=== PATIENT | male | born 1960 | race Caucasian/White ===

== ENCOUNTER 2017-10-21 13:17 | Inpatient (IN) | payer OTHER ==
[2017-10-21 14:09] VITALS: BMI 23.6
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
[2017-10-21] MEDS ORDERED: MAGNESIUM CITRATE 300 ML BOTTLE PO PRN (16:50)
[2017-10-21] MEDS ORDERED: LOPERAMIDE HCL 2 MG CAPSULE PO PRN (16:50)
[2017-10-21] MEDS ORDERED: guaiFENesin/D-METHORPHAN HB 10 ML UNIT-DOSE CUPS PO PRN (16:50)
[2017-10-21] MEDS ORDERED: NICOTINE POLACRILEX 2 MG GUM BC PRN (16:50)
[2017-10-21] MEDS ORDERED: MAGNESIUM HYDROX 2400MG/30ML ORAL SUSPENSION 30 ML CUP PO PRN (16:50)
[2017-10-21] MEDS ORDERED: ACETAMINOPHEN 325 MG TABLET (FP) PO PRN (16:50)
[2017-10-21] MEDS ORDERED: MENTHOL/PHENOL 1 EACH UD MM PRN (16:50)
[2017-10-21] MEDS ORDERED: chlordiazePOXIDE HCL 25 MG CAPSULE PO PRN (16:50)
[2017-10-21] MEDS ORDERED: P-EPHED 60MG/TRIPROLIDI 2.5MG TABLET PO PRN (16:50)
[2017-10-21] MEDS ORDERED: MAG HYDROX/AL HYDROX/SIMETH 30 ML UNIT-DOSE CUP PO PRN (16:50)
[2017-10-21] MEDS ORDERED: chlordiazePOXIDE HCL 25 MG CAPSULE PO ONE (17:30)
[2017-10-21] MEDS ORDERED: METHADONE HCL 10 MG TABLET (FOR DETOX USE ONLY) PO ONE ×2 (17:30→23:00)
[2017-10-21] MEDS: chlordiazePOXIDE HCL 25 MG CAPSULE PO SCH (22:30)
[2017-10-21] MEDS: THIAMINE HCL 100 MG TABLET (FP) PO SCH (22:30)
[2017-10-21] MEDS: MELATONIN 5 MG TABLETS PO PRN (22:31)
[2017-10-22] MEDS: chlordiazePOXIDE HCL 25 MG CAPSULE PO SCH ×4 (06:01→22:22)
[2017-10-22 09:23] LABS: HEMATOCRIT 40.2 % (35.4-49); HEMOGLOBIN 13.5 GM/dL (11.7-16.9); MCH 31.2 pg (25.7-33.7); MCHC 33.7 g/dl (32.0-35.9); MEAN CELL VOLUME 92.7 fl (80-96); PLATELET COUNT 181 K/MM3 (134-434); RBC 4.33 M/mm3 (4.00-5.60); RDW 14.5 % (11.9-15.9)
[2017-10-22] MEDS ORDERED: METHADONE HCL 10 MG TABLET (FOR DETOX USE ONLY) PO SCH (10:00)
--- NOTE | 2017-10-22 10:16 | EKG ---
Test Reason : Blood Pressure : / mmHG Vent. Rate : 073 BPM Atrial Rate : 073 BPM P-R Int : 174 ms QRS Dur : 098 ms QT Int : 388 ms P-R-T Axes : 046 -13 046 degrees QTc Int : 427 ms NORMAL SINUS RHYTHM NORMAL ECG NO PREVIOUS ECGS AVAILABLE Confirmed by JESSE SHI, ROYAL ([id number]) on 10/22/2017 10:16:00 AM Referred By: Confirmed By:ROYAL MOLINA MD
[2017-10-22 10:24] LABS: CHLORIDE 105 mmol/L (98-107); POTASSIUM 4.1 mmol/L (3.5-5.1); SODIUM 142 mmol/L (136-145)
[2017-10-22] MEDS: NICOTINE 21 MG/24 HOURS TOPICAL PATCH TD SCH (10:29)
[2017-10-22] MEDS: PRENATAL VITAMINS W/ FOLIC ACID TABLET (FP) PO SCH (10:29)
[2017-10-22 11:07] LABS: ALBUMIN 3.3 g/dl (3.4-5.0); ALK PHOS 113 U/L (45-117); ANION GAP 7 (8-16); BILIRUBIN,TOTAL 0.2 mg/dL (0.2-1.0); BLOOD UREA NITROGEN 16 mg/dL (7-18); CALCIUM 8.9 mg/dL (8.5-10.1); CO2 30 mmol/L (21-32); CREATININE 0.8 mg/dL (0.7-1.3); GLUCOSE,RANDOM 100 mg/dL (74-106); SGOT/AST 19 U/L (15-37); SGPT/ALT 26 U/L (12-78); TOT PROT 6.6 g/dl (6.4-8.2)
--- NOTE | 2017-10-22 11:47 | PN ---
S CIWA - CIWA Score Nausea/Vomitin-No Nausea/No Vomiting Muscle Tremors: 4-Moderate,w/Arms Extend Anxiety: 2 Agitation: 0-Normal Activity Paroxysmal Sweats: 3 Orientation: 0-Oriented Tacttile Disturbances: 3-Moderate Itch/Numb/Burn Auditory Disturbances: 1-Very Mild Visual Disturbances: 2-Mild Sensitivity Headache: 0-None Present CIWA-Ar Total Score: 15 BHS COWS - Scale Resting Pulse: 0= [place] 80 or Below Sweatin= Chills/Flushing Restless Observation: 0= Sits Still Pupil Size: 0= Normal to Room Light Bone or Joint Aches: 2= Severe Diffuse Aches Runny Nose/ Eye Tearin= Nasal Congestion GI Upset > 30mins: 0= None Tremor Observation of Outstretched Hands: 2= Slight Tremor Visible Yawning Observation: 2= >3x During Session Anxiety or Irritability: 2=Irritable/Anxious Goose Flesh Skin: 0=Smooth Skin COWS Score: 10 BHS Progress Note (SOAP) Subjective: Tremors, Sweating, Body Aches, Fatigue. Objective: PATIENT A & O X 3. NO ACUTE DISTRESS. 10/22/17 11:48 Vital Signs Temperature 96.2 F L 10/22/17 09:11 Pulse Rate 76 10/22/17 09:11 Respiratory Rate 18 10/22/17 09:11 Blood Pressure 108/70 10/22/17 09:11 O2 Sat by Pulse Oximetry (%) Laboratory Tests 10/22/17 10/22/17 07:00 07:00 WBC 5.0 RBC 4.33 Hgb 13.5 Hct 40.2 MCV 92.7 MCH 31.2 MCHC 33.7 RDW 14.5 Plt Count 181 MPV 8.0 D Sodium 142 Potassium 4.1 Chloride 105 Carbon Dioxide 30 Anion Gap 7 L BUN 16 Creatinine 0.8 Creat Clearance w eGFR > 60 Random Glucose 100 Calcium 8.9 Total Bilirubin 0.2 AST 19 D ALT 26 D Alkaline Phosphatase 113 Total Protein 6.6 Albumin 3.3 L LABS NOTED. UA, RPR RESULTS PENDING. 10/22/17 11:49 Assessment: 10/22/17 11:49 WITHDRAWAL SYMPTOMS. Plan: CONTINUE DEOTX. INCREASE DAILY PO FLUID INTAKE.
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
[2017-10-22 18:03] LABS: URINE APPEARANCE TURBID; URINE BILIRUBIN NEGATIVE (<2.0 mg/dL); URINE COLOR YELLOW; URINE GLUCOSE (UA) NEGATIVE (NEGATIVE); URINE KETONE TRACE (NEGATIVE); URINE LEUK ESTERASE NEGATIVE (NEGATIVE); URINE NITRITE NEGATIVE (NEGATIVE); URINE PROTEIN NEGATIVE (NEGATIVE)
[2017-10-22] MEDS: THIAMINE HCL 100 MG TABLET (FP) PO SCH (22:22)
[2017-10-22] MEDS: MELATONIN 5 MG TABLETS PO PRN (22:23)
[2017-10-23] MEDS: IBUPROFEN 400 MG TABLET (FP) PO PRN ×2 (00:48→22:29)
[2017-10-23] MEDS: chlordiazePOXIDE HCL 25 MG CAPSULE PO SCH ×3 (05:55→17:20)
[2017-10-23] MEDS: METHADONE HCL 5 MG TABLET (FOR DETOX USE ONLY) PO SCH (10:57)
[2017-10-23] MEDS: SERTRALINE HCL 25 MG TABLET (FP) PO SCH (10:57)
[2017-10-23] MEDS: NICOTINE 21 MG/24 HOURS TOPICAL PATCH TD SCH (10:57)
[2017-10-23] MEDS: PRENATAL VITAMINS W/ FOLIC ACID TABLET (FP) PO SCH (10:57)
[2017-10-23] MEDS ORDERED: hydrOXYzine PAMOATE 50 MG CAPSULE (FP) PO PRN (14:59)
--- NOTE | 2017-10-23 15:04 | PN ---
S CIWA - CIWA Score Nausea/Vomitin-No Nausea/No Vomiting Muscle Tremors: None Anxiety: 4-Mod. Anxious/Guarded Agitation: 0-Normal Activity Paroxysmal Sweats: No Perspiration Orientation: 2-Disoriented Date<2 days Tacttile Disturbances: 2-Mild Itch/Numbness/Burn Auditory Disturbances: 2-Mild Harshness/Frighten Visual Disturbances: 2-Mild Sensitivity Headache: 0-None Present CIWA-Ar Total Score: 12 S COWS - Scale Resting Pulse: 0= [place] 80 or Below Sweatin= No chills or Flushing Restless Observation: 0= Sits Still Pupil Size: 0= Normal to Room Light Bone or Joint Aches: 2= Severe Diffuse Aches Runny Nose/ Eye Tearin= Nasal Congestion GI Upset > 30mins: 0= None Tremor Observation of Outstretched Hands: 2= Slight Tremor Visible Yawning Observation: 2= >3x During Session Anxiety or Irritability: 2=Irritable/Anxious Goose Flesh Skin: 3=Pil[place] COWS Score: 12 S Progress Note (SOAP) Subjective: Interrupted Sleep, Fatigue, Body Aches, Tremors. Objective: PATIENT A & O X 3, OBSERVED AMBULATING ON UNIT. NO ACUTE DISTRESS. 10/23/17 15:04 Vital Signs Temperature 98.1 F 10/23/17 13:32 Pulse Rate 68 10/23/17 13:32 Respiratory Rate 20 10/23/17 13:32 Blood Pressure 120/78 10/23/17 13:32 O2 Sat by Pulse Oximetry (%) Laboratory Tests 10/21/17 10/22/17 10/22/17 15:00 07:00 07:00 WBC 5.0 RBC 4.33 Hgb 13.5 Hct 40.2 MCV 92.7 MCH 31.2 MCHC 33.7 RDW 14.5 Plt Count 181 MPV 8.0 D Sodium 142 Potassium 4.1 Chloride 105 Carbon Dioxide 30 Anion Gap 7 L BUN 16 Creatinine 0.8 Creat Clearance w eGFR > 60 Random Glucose 100 Calcium 8.9 Total Bilirubin 0.2 AST 19 D ALT 26 D Alkaline Phosphatase 113 Total Protein 6.6 Albumin 3.3 L Urine Color Yellow Urine Appearance Turbid Urine pH 5.0 D Ur Specific [place] 1.029 Urine Protein Negative Urine Glucose (UA) Negative Urine Ketones Trace H Urine Blood Negative Urine Nitrite Negative Urine Bilirubin Negative Urine Urobilinogen 2.0 Ur Leukocyte Esterase Negative RPR Titer 10/22/17 07:00 WBC RBC Hgb Hct MCV MCH MCHC RDW Plt Count MPV Sodium Potassium Chloride Carbon Dioxide Anion Gap BUN Creatinine Creat Clearance w eGFR Random Glucose Calcium Total Bilirubin AST ALT Alkaline Phosphatase Total Protein Albumin Urine Color Urine Appearance Urine pH Ur Specific [place] Urine Protein Urine Glucose (UA) Urine Ketones Urine Blood Urine Nitrite Urine Bilirubin Urine Urobilinogen Ur Leukocyte Esterase RPR Titer Nonreactive LABS NOTED. Assessment: 10/23/17 15:05 WITHDRAWAL SYMPTOMS. Plan: CONTINUE DETOX.
[2017-10-23] MEDS: chlordiazePOXIDE 5 MG CAPSULE PO SCH (22:26)
[2017-10-23] MEDS: MELATONIN 5 MG TABLETS PO PRN (22:26)
[2017-10-23] MEDS: THIAMINE HCL 100 MG TABLET (FP) PO SCH (22:26)
[2017-10-24] MEDS: chlordiazePOXIDE 5 MG CAPSULE PO SCH ×3 (05:38→17:51)
[2017-10-24] MEDS: PRENATAL VITAMINS W/ FOLIC ACID TABLET (FP) PO SCH (10:29)
[2017-10-24] MEDS: METHADONE HCL 5 MG TABLET (FOR DETOX USE ONLY) PO SCH (10:29)
[2017-10-24] MEDS: SERTRALINE HCL 25 MG TABLET (FP) PO SCH (10:29)
[2017-10-24] MEDS: NICOTINE 21 MG/24 HOURS TOPICAL PATCH TD SCH (10:29)
[2017-10-24] MEDS ORDERED: LIDOCAINE 5% TOPICAL PATCH TP SCH (13:00)
[2017-10-24 13:58] VITALS: BP 102/72; PULSE 91; TEMP 98.1
--- NOTE | 2017-10-24 16:10 | PN ---
BHS Progress Note (SOAP) Subjective: Body Aches, Interrupted Sleep, Fatigue. Objective: PATIENT A & O X 2 (UNCERTAIN ABOUT CURRENT DAY / DATE). PATIENT OBSERVED AMBULATING ON UNIT. NO ACUTE DISTRESS. 10/24/17 16:08 Vital Signs Temperature 98.1 F 10/24/17 13:49 Pulse Rate 91 H 10/24/17 13:49 Respiratory Rate 20 10/24/17 13:49 Blood Pressure 102/72 10/24/17 13:49 O2 Sat by Pulse Oximetry (%) Laboratory Tests 10/21/17 10/22/17 10/22/17 15:00 07:00 07:00 WBC 5.0 RBC 4.33 Hgb 13.5 Hct 40.2 MCV 92.7 MCH 31.2 MCHC 33.7 RDW 14.5 Plt Count 181 MPV 8.0 D Sodium 142 Potassium 4.1 Chloride 105 Carbon Dioxide 30 Anion Gap 7 L BUN 16 Creatinine 0.8 Creat Clearance w eGFR > 60 Random Glucose 100 Calcium 8.9 Total Bilirubin 0.2 AST 19 D ALT 26 D Alkaline Phosphatase 113 Total Protein 6.6 Albumin 3.3 L Urine Color Yellow Urine Appearance Turbid Urine pH 5.0 D Ur Specific [place] 1.029 Urine Protein Negative Urine Glucose (UA) Negative Urine Ketones Trace H Urine Blood Negative Urine Nitrite Negative Urine Bilirubin Negative Urine Urobilinogen 2.0 Ur Leukocyte Esterase Negative RPR Titer 10/22/17 07:00 WBC RBC Hgb Hct MCV MCH MCHC RDW Plt Count MPV Sodium Potassium Chloride Carbon Dioxide Anion Gap BUN Creatinine Creat Clearance w eGFR Random Glucose Calcium Total Bilirubin AST ALT Alkaline Phosphatase Total Protein Albumin Urine Color Urine Appearance Urine pH Ur Specific [place] Urine Protein Urine Glucose (UA) Urine Ketones Urine Blood Urine Nitrite Urine Bilirubin Urine Urobilinogen Ur Leukocyte Esterase RPR Titer Nonreactive LABS NOTED. Assessment: 10/24/17 16:09 WITHDRAWAL SYMPTOMS. Plan: CONTINUE DETOX. LIDODERM PATCH FOR LOWER BACK PAIN.
--- NOTE | 2017-10-24 20:22 | PN ---
[facility] Progress Note Note: Patient leaving AMA. Patient is stable. States has family issues and refuses to discuss. The patient was informed informed of over dose and health risks related to potential relapse. Encouraged to f/u with primary care provider seek help or go to ER/call 911 if has problems worsening problems. Patient will continue with home medications.
--- NOTE | 2017-10-24 20:29 | DS ---
[facility] Detox Discharge Summary Admission Date: 10/21/17 Discharge Date: 10/24/17 (AMA) - History Present History: Alcohol Dependence, Cocaine Dependence, Opioid Dependence - Physical Exam Results Vital Signs: Vital Signs Temperature 98.1 F 10/24/17 13:49 Pulse Rate 91 H 10/24/17 13:49 Respiratory Rate 20 10/24/17 13:49 Blood Pressure 102/72 10/24/17 13:49 O2 Sat by Pulse Oximetry (%) - Treatment Hospital Course: Detox Protocol Followed (Did not complete detox. Alert and oriented. Gait steady. Has minor withdrawal symptoms (mild tremor of hands).) - Medication Discharge Medications: Ambulatory Orders Prazosin HCl [Minipress -] 5 mg PO DAILY 10/21/17 Sertraline HCl [Zoloft -] 25 mg PO DAILY 10/21/17 - Diagnosis (1) Alcohol dependence Status: Acute Qualifiers: Substance use status: in withdrawal Complication of substance-induced condition: uncomplicated Qualified Code(s): F10.230 - Alcohol dependence with withdrawal, uncomplicated (2) Cocaine dependence Status: Acute Qualifiers: Substance use status: in withdrawal Qualified Code(s): F14.23 - Cocaine dependence with withdrawal (3) Nicotine dependence Status: Acute Qualifiers: Nicotine product type: cigarettes Substance use status: uncomplicated Qualified Code(s): F17.210 - Nicotine dependence, cigarettes, uncomplicated (4) Opioid dependence Status: Chronic Qualifiers: Substance use status: in withdrawal Qualified Code(s): F11.23 - Opioid dependence with withdrawal - AMA Did Patient Leave Against Medical Advice: Yes
[2017-10-24] MEDS ORDERED: LIDOCAINE PATCH REMOVAL MC SCH (22:00)
[2017-10-24] MEDS ORDERED: chlordiazePOXIDE HCL 10 MG CAPSULE PO SCH (23:00)
[2017-10-25] MEDS ORDERED: METHADONE HCL 10 MG TABLET (FOR DETOX USE ONLY) PO SCH (10:00)
[2017-10-26] MEDS ORDERED: METHADONE HCL 5 MG TABLET (FOR DETOX USE ONLY) PO SCH (06:00)
== END 2017-10-24 07:02 | disposition left against medical advice (07) | DRG 770 ==
LOC: YASAS 13:17 → Y3N 16:58
PROVIDERS: ADMIT Surgery; ATTEND Surgery
PROC: HZ2ZZZZ Detoxification Services for Substance Abuse Treatment (ICD-10-PCS; principal; 2017-10-21)
DX: F11.23 Opioid dependence with withdrawal (principal); F10.230 Alcohol dependence with withdrawal, uncomplicated; F14.23 Cocaine dependence with withdrawal; F17.210 Nicotine dependence, cigarettes, uncomplicated; F43.10 Post-traumatic stress disorder, unspecified; F33.9 Major depressive disorder, recurrent, unspecified; M54.5 Low back pain; M12.50 Traumatic arthropathy, unspecified site; Z87.828 Personal history of other (healed) physical injury and trauma; Z86.19 Personal history of other infectious and parasitic diseases
CPT/HCPCS: 36415; 71046-TC-FY; 80053; 81003; 85027; 86593; 93005; 93010

== ENCOUNTER 2018-01-29 12:09 | Inpatient (IN) | payer OTHER ==
[2018-01-29 15:38] VITALS: BMI 23.4
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
[2018-01-29] MEDS ORDERED: MAGNESIUM CITRATE 300 ML BOTTLE PO PRN (18:57)
[2018-01-29] MEDS ORDERED: IBUPROFEN 400 MG TABLET (FP) PO PRN (18:57)
[2018-01-29] MEDS ORDERED: MAGNESIUM HYDROX 2400MG/30ML ORAL SUSPENSION 30 ML CUP PO PRN (18:57)
[2018-01-29] MEDS ORDERED: P-EPHED 60MG/TRIPROLIDI 2.5MG TABLET PO PRN (18:57)
[2018-01-29] MEDS ORDERED: NICOTINE POLACRILEX 2 MG GUM BUC PRN (18:57)
[2018-01-29] MEDS ORDERED: MENTHOL/PHENOL 1 EACH UD MM PRN (18:57)
[2018-01-29] MEDS ORDERED: ACETAMINOPHEN 325 MG TABLET (FP) PO PRN (18:57)
[2018-01-29] MEDS ORDERED: METHADONE HCL 10 MG TABLET (FOR DETOX USE ONLY) PO ONE ×2 (18:57→23:00)
[2018-01-29] MEDS ORDERED: LOPERAMIDE HCL 2 MG CAPSULE PO PRN (18:57)
[2018-01-29] MEDS ORDERED: MAG HYDROX/AL HYDROX/SIMETH 30 ML UNIT-DOSE CUP PO PRN (18:57)
[2018-01-29] MEDS: chlordiazePOXIDE HCL 25 MG CAPSULE PO PRN (19:43)
[2018-01-29] MEDS: THIAMINE HCL 100 MG TABLET (FP) PO SCH (22:24)
[2018-01-29] MEDS: chlordiazePOXIDE HCL 25 MG CAPSULE PO SCH (22:24)
[2018-01-29] MEDS: guaiFENesin/D-METHORPHAN HB 10 ML UNIT-DOSE CUPS PO PRN (22:24)
[2018-01-29 22:57] LABS: URINE APPEARANCE CLEAR; URINE BILIRUBIN NEGATIVE (<2.0 mg/dL); URINE COLOR YELLOW; URINE GLUCOSE (UA) NEGATIVE (NEGATIVE); URINE KETONE NEGATIVE (NEGATIVE); URINE LEUK ESTERASE NEGATIVE (NEGATIVE); URINE NITRITE NEGATIVE (NEGATIVE); URINE PROTEIN NEGATIVE (NEGATIVE); URINE UROBILINOGEN NEGATIVE mg/dL (0.2-1.0)
[2018-01-29 23:03] LABS: URINE MUCUS FEW
[2018-01-29] MEDS: MELATONIN 5 MG TABLETS PO PRN (23:43)
[2018-01-30] MEDS: chlordiazePOXIDE HCL 25 MG CAPSULE PO SCH ×4 (05:32→22:14)
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
[2018-01-30] MEDS ORDERED: METHADONE HCL 10 MG TABLET (FOR DETOX USE ONLY) PO SCH (10:00)
[2018-01-30 10:15] LABS: HEMATOCRIT 41.2 % (35.4-49); HEMOGLOBIN 13.4 GM/dL (11.7-16.9); MCHC 32.6 g/dl (32.0-35.9); MEAN CELL VOLUME 92.1 fl (80-96); MEAN PLT VOLUME 7.8 fl (7.5-11.1); PLATELET COUNT 256 K/MM3 (134-434); RBC 4.47 M/mm3 (4.00-5.60); RDW 13.5 % (11.9-15.9)
[2018-01-30] MEDS: NICOTINE 14 MG/24 HOURS TOPICAL PATCH TD SCH (10:27)
[2018-01-30] MEDS: PRENATAL VITAMINS W/ FOLIC ACID TABLET (FP) PO SCH (10:27)
[2018-01-30 10:49] LABS: ALBUMIN 3.3 g/dl (3.4-5.0); ALK PHOS 106 U/L (45-117); ANION GAP 9 MMOL/L (8-16); BILIRUBIN,TOTAL 0.4 mg/dL (0.2-1); BLOOD UREA NITROGEN 11 mg/dL (7-18); CALCIUM 9.5 mg/dL (8.5-10.1); CHLORIDE 106 mmol/L (98-107); CO2 26 mmol/L (21-32); CREATININE 0.7 mg/dL (0.55-1.3); GLUCOSE,RANDOM 107 mg/dL (74-106); POTASSIUM 4.4 mmol/L (3.5-5.1); SGOT/AST 25 U/L (15-37); SGPT/ALT 31 U/L (13-61); SODIUM 142 mmol/L (136-145); TOT PROT 7.6 g/dl (6.4-8.2)
--- NOTE | 2018-01-30 10:49 | PN ---
[facility] CIWA - CIWA Score Nausea/Vomitin-No Nausea/No Vomiting Muscle Tremors: 4-Moderate,w/Arms Extend Anxiety: 3 Agitation: 3 Paroxysmal Sweats: 3 Orientation: 0-Oriented Tacttile Disturbances: 0-None Auditory Disturbances: 0-None Visual Disturbances: 0-None Headache: 0-None Present CIWA-Ar Total Score: 13 [facility] COWS - Scale Resting Pulse: 1= [place] 81-100 Sweatin=Flushed/Facial Moisture Restless Observation: 1= Difficult to Sit Still Pupil Size: 0= Normal to Room Light Bone or Joint Aches: 2= Severe Diffuse Aches Runny Nose/ Eye Tearin= Nasal Congestion GI Upset > 30mins: 1= Stomach Cramp Tremor Observation of Outstretched Hands: 2= Slight Tremor Visible Yawning Observation: 2= >3x During Session Anxiety or Irritability: 1=Feels Anxious/Irritable Goose Flesh Skin: 0=Smooth Skin COWS Score: 13 [facility] Progress Note (SOAP) Subjective: agitation anxiety sweats irritable restless Objective: 01/30/18 10:55 Vital Signs Temperature 98.8 F 01/30/18 09:16 Pulse Rate 95 H 01/30/18 09:16 Respiratory Rate 18 01/30/18 09:16 Blood Pressure 107/67 01/30/18 09:16 O2 Sat by Pulse Oximetry (%) Laboratory Tests 01/29/18 01/30/18 01/30/18 Unknown 07:00 07:00 WBC 10.0 RBC 4.47 Hgb 13.4 Hct 41.2 MCV 92.1 MCH 30.0 MCHC 32.6 RDW 13.5 Plt Count 256 D MPV 7.8 D Sodium 142 Potassium 4.4 Chloride 106 Carbon Dioxide 26 Anion Gap 9 BUN 11 Creatinine 0.7 Creat Clearance w eGFR > 60 Random Glucose 107 H Calcium 9.5 Total Bilirubin 0.4 AST 25 ALT 31 Alkaline Phosphatase 106 Total Protein 7.6 Albumin 3.3 L Urine Color Yellow Urine Appearance Clear Urine pH 5.0 Ur Specific [place] 1.024 Urine Protein Negative Urine Glucose (UA) Negative Urine Ketones Negative Urine Blood 1+ H Urine Nitrite Negative Urine Bilirubin Negative Urine Urobilinogen Negative Ur Leukocyte Esterase Negative Urine WBC (Auto) <1 Urine RBC (Auto) 2 Urine Mucus Few aaox3 ambulating no acute distress Assessment: 01/30/18 10:56 withdrawal sx Plan: continue detox increase fluids
[2018-01-30] MEDS: SERTRALINE HCL 25 MG TABLET (FP) PO SCH (10:55)
[2018-01-30] MEDS ORDERED: FLU VACCINE QUAD 60 MCG/0.5 ML (MDV 18-19) IM ONE (12:00)
[2018-01-30] MEDS: guaiFENesin/D-METHORPHAN HB 10 ML UNIT-DOSE CUPS PO PRN (13:51)
--- NOTE | 2018-01-30 20:39 | PN ---
[facility] Progress Note Note: Patient c/o decreased appetite and requesting ensure. BMI reviewed. Will give 120 ml ensure once a day HS.
[2018-01-30] MEDS: THIAMINE HCL 100 MG TABLET (FP) PO SCH (22:13)
[2018-01-30] MEDS: PRAZOSIN HCL 1 MG CAPSULE PO SCH (22:14)
[2018-01-31] MEDS: chlordiazePOXIDE HCL 25 MG CAPSULE PO SCH ×3 (05:45→17:29)
[2018-01-31] MEDS: PRENATAL VITAMINS W/ FOLIC ACID TABLET (FP) PO SCH (10:07)
[2018-01-31] MEDS: SERTRALINE HCL 25 MG TABLET (FP) PO SCH (10:07)
[2018-01-31] MEDS: METHADONE HCL 5 MG TABLET (FOR DETOX USE ONLY) PO SCH (10:07)
[2018-01-31] MEDS: NICOTINE 14 MG/24 HOURS TOPICAL PATCH TD SCH (10:07)
[2018-01-31] MEDS: guaiFENesin/D-METHORPHAN HB 10 ML UNIT-DOSE CUPS PO PRN (13:11)
[2018-01-31] MEDS: chlordiazePOXIDE HCL 25 MG CAPSULE PO PRN (13:13)
--- NOTE | 2018-01-31 18:11 | EKG ---
Test Reason : Blood Pressure : / mmHG Vent. Rate : 079 BPM Atrial Rate : 079 BPM P-R Int : 160 ms QRS Dur : 100 ms QT Int : 364 ms P-R-T Axes : 048 -15 060 degrees QTc Int : 417 ms NORMAL SINUS RHYTHM NORMAL ECG WHEN COMPARED WITH ECG OF 27-NOV-2017 16:43, NO SIGNIFICANT CHANGE WAS FOUND Confirmed by RISA MICHAEL MD ([id number]) on 01/31/2018 6:11:28 PM Referred By: Confirmed By:RISA MICHAEL MD
--- NOTE | 2018-01-31 21:53 | PN ---
[facility] CIWA - CIWA Score Nausea/Vomitin Muscle Tremors: 2 Anxiety: 3 Agitation: 2 Paroxysmal Sweats: 3 Orientation: 0-Oriented Tacttile Disturbances: 0-None Auditory Disturbances: 0-None Visual Disturbances: 0-None Headache: 0-None Present CIWA-Ar Total Score: 12 S COWS - Scale Resting Pulse: 1= [place] 81-100 Sweatin=Flushed/Facial Moisture Restless Observation: 1= Difficult to Sit Still Pupil Size: 0= Normal to Room Light Bone or Joint Aches: 1= Mild Discomfort Runny Nose/ Eye Tearin= Nasal Congestion GI Upset > 30mins: 1= Stomach Cramp Tremor Observation of Outstretched Hands: 2= Slight Tremor Visible Yawning Observation: 0= None Anxiety or Irritability: 1=Feels Anxious/Irritable Goose Flesh Skin: 0=Smooth Skin COWS Score: 10 [facility] Progress Note (SOAP) Subjective: no complaints offered Objective: 01/31/18 21:51 A & Ox 3 Ambulating on unit, hit knee against Vital Signs 01/31/18 01/31/18 14:10 18:27 Temperature 98.4 F 100 F H Pulse Rate 106 H 111 H Respiratory 18 20 Rate Blood Pressure 113/67 119/63 a table while walking No injuries noted, denies pain Ambulates steadily post fall Assessment: 01/31/18 21:52 withdrawal sx Plan: continue detox
[2018-01-31] MEDS: THIAMINE HCL 100 MG TABLET (FP) PO SCH (22:14)
[2018-01-31] MEDS: chlordiazePOXIDE 5 MG CAPSULE PO SCH (22:14)
[2018-01-31] MEDS: PRAZOSIN HCL 1 MG CAPSULE PO SCH (22:15)
[2018-02-01] MEDS: chlordiazePOXIDE HCL 25 MG CAPSULE PO PRN (00:45)
[2018-02-01] MEDS: MELATONIN 5 MG TABLETS PO PRN (00:45)
[2018-02-01] MEDS: guaiFENesin/D-METHORPHAN HB 10 ML UNIT-DOSE CUPS PO PRN ×2 (01:55→11:07)
[2018-02-01] MEDS: chlordiazePOXIDE 5 MG CAPSULE PO SCH ×3 (05:37→17:09)
[2018-02-01] MEDS: PRENATAL VITAMINS W/ FOLIC ACID TABLET (FP) PO SCH (10:06)
[2018-02-01] MEDS: SERTRALINE HCL 25 MG TABLET (FP) PO SCH (10:06)
[2018-02-01] MEDS: METHADONE HCL 5 MG TABLET (FOR DETOX USE ONLY) PO SCH (10:06)
[2018-02-01] MEDS: NICOTINE 14 MG/24 HOURS TOPICAL PATCH TD SCH (10:06)
--- NOTE | 2018-02-01 11:59 | PN ---
[facility] Progress Note (SOAP) Subjective: sweat tremor anxiety restlessness body aches Objective: 02/01/18 11:58 Vital Signs Temperature 98.2 F 02/01/18 09:40 Pulse Rate 94 H 02/01/18 09:40 Respiratory Rate 16 02/01/18 09:40 Blood Pressure 122/66 02/01/18 09:40 O2 Sat by Pulse Oximetry (%) Laboratory Last Values WBC 10.0 K/mm3 (4.0-10.0) 01/30/18 07:00 RBC 4.47 M/mm3 (4.00-5.60) 01/30/18 07:00 Hgb 13.4 GM/dL (11.7-16.9) 01/30/18 07:00 Hct 41.2 % (35.4-49) 01/30/18 07:00 MCV 92.1 fl (80-96) 01/30/18 07:00 MCH 30.0 pg (25.7-33.7) 01/30/18 07:00 MCHC 32.6 g/dl (32.0-35.9) 01/30/18 07:00 RDW 13.5 % (11.9-15.9) 01/30/18 07:00 Plt Count 256 K/MM3 (134-434) D 01/30/18 07:00 MPV 7.8 fl (7.5-11.1) D 01/30/18 07:00 Sodium 142 mmol/L (136-145) 01/30/18 07:00 Potassium 4.4 mmol/L (3.5-5.1) 01/30/18 07:00 Chloride 106 mmol/L (98-107) 01/30/18 07:00 Carbon Dioxide 26 mmol/L (21-32) 01/30/18 07:00 Anion Gap 9 MMOL/L (8-16) 01/30/18 07:00 BUN 11 mg/dL (7-18) 01/30/18 07:00 Creatinine 0.7 mg/dL (0.55-1.3) 01/30/18 07:00 Creat Clearance w eGFR > 60 (>60) 01/30/18 07:00 Random Glucose 107 mg/dL (74-106) H 01/30/18 07:00 Calcium 9.5 mg/dL (8.5-10.1) 01/30/18 07:00 Total Bilirubin 0.4 mg/dL (0.2-1) 01/30/18 07:00 AST 25 U/L (15-37) 01/30/18 07:00 ALT 31 U/L (13-61) 01/30/18 07:00 Alkaline Phosphatase 106 U/L (45-117) 01/30/18 07:00 Total Protein 7.6 g/dl (6.4-8.2) 01/30/18 07:00 Albumin 3.3 g/dl (3.4-5.0) L 01/30/18 07:00 Urine Color Yellow 01/29/18 Unknown Urine Appearance Clear 01/29/18 Unknown Urine pH 5.0 (5.0-8.0) 01/29/18 Unknown Ur Specific [place] 1.024 (1.010-1.035) 01/29/18 Unknown Urine Protein Negative (NEGATIVE) 01/29/18 Unknown Urine Glucose (UA) Negative (NEGATIVE) 01/29/18 Unknown Urine Ketones Negative (NEGATIVE) 01/29/18 Unknown Urine Blood 1+ (NEGATIVE) H 01/29/18 Unknown Urine Nitrite Negative (NEGATIVE) 01/29/18 Unknown Urine Bilirubin Negative (<2.0 mg/dL) 01/29/18 Unknown Urine Urobilinogen Negative mg/dL (0.2-1.0) 01/29/18 Unknown Ur Leukocyte Esterase Negative (NEGATIVE) 01/29/18 Unknown Urine WBC (Auto) <1 /hpf (3-5) 01/29/18 Unknown Urine RBC (Auto) 2 /hpf (0-3) 01/29/18 Unknown Urine Mucus Few 01/29/18 Unknown RPR Titer Nonreactive (NONREACTIVE) 01/30/18 07:00 lab noted Assessment: 02/01/18 11:59 withdrawal sx Plan: continue detox
[2018-02-01] MEDS: chlordiazePOXIDE HCL 10 MG CAPSULE PO SCH (22:39)
[2018-02-01] MEDS: THIAMINE HCL 100 MG TABLET (FP) PO SCH (22:39)
[2018-02-01] MEDS: PRAZOSIN HCL 1 MG CAPSULE PO SCH (22:40)
[2018-02-02] MEDS: chlordiazePOXIDE HCL 10 MG CAPSULE PO SCH ×3 (05:28→17:44)
[2018-02-02] MEDS: guaiFENesin/D-METHORPHAN HB 10 ML UNIT-DOSE CUPS PO PRN ×3 (05:29→18:24)
[2018-02-02] MEDS ORDERED: METHADONE HCL 10 MG TABLET (FOR DETOX USE ONLY) PO SCH (10:00)
--- NOTE | 2018-02-02 10:06 | PN ---
[facility] Progress Note (SOAP) Subjective: sweats interrupted sleep Objective: 02/02/18 10:22 Vital Signs Temperature 98.2 F 02/02/18 09:39 Pulse Rate 96 H 02/02/18 09:39 Respiratory Rate 18 02/02/18 09:39 Blood Pressure 108/54 L 02/02/18 09:39 O2 Sat by Pulse Oximetry (%) aaox3 ambulating no acute distress Assessment: 02/02/18 10:25 withdrawal sx Plan: continue detox increase fluids d/c in am
[2018-02-02] MEDS: PRENATAL VITAMINS W/ FOLIC ACID TABLET (FP) PO SCH (10:25)
[2018-02-02] MEDS: NICOTINE 14 MG/24 HOURS TOPICAL PATCH TD SCH (10:26)
[2018-02-02] MEDS: SERTRALINE HCL 25 MG TABLET (FP) PO SCH (10:26)
[2018-02-02] MEDS: THIAMINE HCL 100 MG TABLET (FP) PO SCH (22:07)
[2018-02-02] MEDS: PRAZOSIN HCL 1 MG CAPSULE PO SCH (22:07)
[2018-02-03] MEDS: guaiFENesin/D-METHORPHAN HB 10 ML UNIT-DOSE CUPS PO PRN (05:51)
[2018-02-03] MEDS ORDERED: METHADONE HCL 5 MG TABLET (FOR DETOX USE ONLY) PO SCH (06:00)
[2018-02-03 09:33] VITALS: BP 114/65; PULSE 98; TEMP 98.2
--- NOTE | 2018-02-03 09:48 | DS ---
[facility] Detox Discharge Summary Admission Date: 01/29/18 Discharge Date: 02/03/18 - History Present History: Alcohol Dependence, Opioid Dependence, MMTP - Physical Exam Results Vital Signs: Vital Signs Temperature 98.2 F 02/03/18 09:32 Pulse Rate 98 H 02/03/18 09:32 Respiratory Rate 18 02/03/18 09:32 Blood Pressure 114/65 02/03/18 09:32 O2 Sat by Pulse Oximetry (%) - Treatment Hospital Course: Detox Protocol Followed, Detoxed Safely, Responded well, Discharged Condition Good, Rehab Referral Accepted - Medication Discharge Medications: Ambulatory Orders Prazosin HCl [Minipress -] 5 mg PO DAILY 10/21/17 Sertraline HCl [Zoloft -] 25 mg PO DAILY #30 tablet 12/02/17 - Diagnosis (1) Alcohol dependence with withdrawal Current Visit: Yes Status: Chronic Qualifiers: Complication of substance-induced condition: uncomplicated Qualified Code(s ): F10.230 - Alcohol dependence with withdrawal, uncomplicated (2) Anxiety Current Visit: Yes Status: Chronic (3) Back pain Current Visit: Yes Status: Chronic Qualifiers: Back pain location: low back pain Chronicity: acute Back pain laterality : bilateral Sciatica presence: without sciatica Qualified Code(s): M54.5 - Low back pain (4) Cocaine dependence Current Visit: Yes Status: Chronic Qualifiers: Substance use status: uncomplicated Qualified Code(s): F14.20 - Cocaine dependence, uncomplicated (5) Depression Current Visit: Yes Status: Chronic Qualifiers: Depression Type: unspecified Qualified Code(s): F32.9 - Major depressive disorder, single episode, unspecified (6) Nicotine dependence Current Visit: Yes Status: Chronic Qualifiers: Nicotine product type: cigarettes Substance use status: uncomplicated Qualified Code(s): F17.210 - Nicotine dependence, cigarettes, uncomplicated (7) Opioid dependence with withdrawal Current Visit: Yes Status: Chronic (8) Alcohol dependence Current Visit: Yes Status: Chronic Qualifiers: Substance use status: in withdrawal Complication of substance-induced condition: uncomplicated Qualified Code(s): F10.230 - Alcohol dependence with withdrawal, uncomplicated (9) Depressed mood Current Visit: No Status: Acute (10) Substance-induced sleep disorder Current Visit: No Status: Acute (11) Hx of chronic arthritis Current Visit: No Status: Chronic (12) PTSD (post-traumatic stress disorder) Current Visit: Yes Status: Chronic (13) Traumatic arthritis Current Visit: No Status: Chronic (14) Hepatitis C Current Visit: Yes Status: Chronic Qualifiers: Viral hepatitis chronicity: chronic Hepatic coma status: without hepatic coma Qualified Code(s): B18.2 - Chronic viral hepatitis C - AMA Did Patient Leave Against Medical Advice: No (ref[facility])
[2018-02-03] MEDS: PRENATAL VITAMINS W/ FOLIC ACID TABLET (FP) PO SCH (10:10)
[2018-02-03] MEDS: NICOTINE 14 MG/24 HOURS TOPICAL PATCH TD SCH (10:10)
[2018-02-03] MEDS: SERTRALINE HCL 25 MG TABLET (FP) PO SCH (10:10)
== END 2018-02-03 12:45 | disposition other institution (70) | DRG 773 ==
LOC: YASAS 12:09 → Y6N 18:47
PROC: HZ2ZZZZ Detoxification Services for Substance Abuse Treatment (ICD-10-PCS; principal; 2018-01-29)
DX: F11.23 Opioid dependence with withdrawal (principal); F10.230 Alcohol dependence with withdrawal, uncomplicated; F14.20 Cocaine dependence, uncomplicated; F17.210 Nicotine dependence, cigarettes, uncomplicated; F32.9 Major depressive disorder, single episode, unspecified; F19.24 Other psychoactive substance dependence with psychoactive substance-induced mood disorder; F19.282 Other psychoactive substance dependence with psychoactive substance-induced sleep disorder; F43.10 Post-traumatic stress disorder, unspecified; F41.9 Anxiety disorder, unspecified; M54.5 Low back pain; B18.2 Chronic viral hepatitis C; M19.90 Unspecified osteoarthritis, unspecified site; Z88.1 Allergy status to other antibiotic agents
CPT/HCPCS: 36415; 80053; 81003; 81015; 85027; 86593; 90688; 93005; 93010; G0008

== ENCOUNTER 2018-02-03 12:54 | Inpatient (IN) | payer OTHER ==
[2018-02-03] MEDS ORDERED: MAGNESIUM HYDROX 2400MG/30ML ORAL SUSPENSION 30 ML CUP PO PRN (15:38)
[2018-02-03] MEDS ORDERED: NICOTINE POLACRILEX 4 MG GUM BUC PRN (15:38)
[2018-02-03] MEDS ORDERED: LOPERAMIDE HCL 2 MG CAPSULE PO PRN (15:38)
[2018-02-03] MEDS ORDERED: guaiFENesin/D-METHORPHAN HB 10 ML UNIT-DOSE CUPS PO PRN (15:38)
[2018-02-03] MEDS ORDERED: MAGNESIUM CITRATE 300 ML BOTTLE PO PRN (15:38)
[2018-02-03] MEDS ORDERED: P-EPHED 60MG/TRIPROLIDI 2.5MG TABLET PO PRN (15:38)
[2018-02-03] MEDS ORDERED: MENTHOL/PHENOL 1 EACH UD MM PRN (15:38)
[2018-02-03] MEDS ORDERED: MAG HYDROX/AL HYDROX/SIMETH 30 ML UNIT-DOSE CUP PO PRN (15:38)
[2018-02-03] MEDS ORDERED: IBUPROFEN 400 MG TABLET (FP) PO PRN (15:38)
--- NOTE | 2018-02-03 15:38 | HP ---
[facility] Rehab Assess/Revision - Admission History Admitted to Rehab from: [facility] [place] - Vital signs Vital Signs: Vital Signs Period Temp Pulse Resp BP Sys/Andrade Pulse Ox Last 24 Hr 99 F 96 18 106/69 - Findings Detox History & Physical reviewed: Yes Concur with findings: Yes
[2018-02-03] MEDS: THIAMINE HCL 100 MG TABLET (FP) PO SCH (21:16)
[2018-02-03] MEDS ORDERED: MELATONIN 5 MG TABLETS PO PRN (22:00)
[2018-02-03] MEDS ORDERED: PRAZOSIN HCL 5 MG CAPSULE PO SCH (22:00)
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
[2018-02-04] MEDS: NICOTINE 21 MG/24 HOURS TOPICAL PATCH TD SCH (10:08)
[2018-02-04] MEDS: SERTRALINE HCL 50 MG TABLET (FP) PO SCH (10:09)
[2018-02-04] MEDS: PRENATAL VITAMINS W/ FOLIC ACID TABLET (FP) PO SCH (10:09)
[2018-02-04] MEDS: THIAMINE HCL 100 MG TABLET (FP) PO SCH (21:21)
[2018-02-04] MEDS: PRAZOSIN HCL 1 MG CAPSULE PO SCH (21:23)
[2018-02-04] MEDS: SUVOREXANT 10 MG TABLET PO PRN (23:08)
[2018-02-05] MEDS: NICOTINE 21 MG/24 HOURS TOPICAL PATCH TD SCH (10:02)
[2018-02-05] MEDS: SERTRALINE HCL 50 MG TABLET (FP) PO SCH (10:02)
[2018-02-05] MEDS: PRENATAL VITAMINS W/ FOLIC ACID TABLET (FP) PO SCH (10:02)
[2018-02-05] MEDS: PRAZOSIN HCL 1 MG CAPSULE PO SCH (21:23)
[2018-02-05] MEDS: THIAMINE HCL 100 MG TABLET (FP) PO SCH (21:23)
[2018-02-05] MEDS: SUVOREXANT 10 MG TABLET PO PRN (21:24)
[2018-02-06] MEDS: ACETAMINOPHEN 325 MG TABLET (FP) PO PRN (04:09)
[2018-02-06] MEDS: PRENATAL VITAMINS W/ FOLIC ACID TABLET (FP) PO SCH (09:59)
[2018-02-06] MEDS: NICOTINE 21 MG/24 HOURS TOPICAL PATCH TD SCH (09:59)
[2018-02-06] MEDS: SERTRALINE HCL 50 MG TABLET (FP) PO SCH (09:59)
[2018-02-06] MEDS: PRAZOSIN HCL 1 MG CAPSULE PO SCH (21:19)
[2018-02-06] MEDS: THIAMINE HCL 100 MG TABLET (FP) PO SCH (21:19)
[2018-02-06] MEDS: SUVOREXANT 10 MG TABLET PO PRN (21:21)
[2018-02-07] MEDS: ACETAMINOPHEN 325 MG TABLET (FP) PO PRN (00:19)
[2018-02-07] MEDS: PRENATAL VITAMINS W/ FOLIC ACID TABLET (FP) PO SCH (09:58)
[2018-02-07] MEDS: SERTRALINE HCL 50 MG TABLET (FP) PO SCH (09:58)
[2018-02-07] MEDS: NICOTINE 21 MG/24 HOURS TOPICAL PATCH TD SCH (09:58)
--- NOTE | 2018-02-07 13:42 | PN ---
ANN Progress Note Note: Psychiatric nurse practitioner foundation relations manager note: Cassandra 10mg renewed.
[2018-02-07] MEDS: hydrOXYzine PAMOATE 50 MG CAPSULE (FP) PO PRN (20:31)
[2018-02-07] MEDS: THIAMINE HCL 100 MG TABLET (FP) PO SCH (21:16)
[2018-02-07] MEDS: PRAZOSIN HCL 1 MG CAPSULE PO SCH (21:16)
[2018-02-07] MEDS: SUVOREXANT 10 MG TABLET PO PRN (21:17)
[2018-02-08] MEDS: PRENATAL VITAMINS W/ FOLIC ACID TABLET (FP) PO SCH (09:37)
[2018-02-08] MEDS: NICOTINE 21 MG/24 HOURS TOPICAL PATCH TD SCH (09:37)
[2018-02-08] MEDS: SERTRALINE HCL 50 MG TABLET (FP) PO SCH (09:37)
[2018-02-08] MEDS: THIAMINE HCL 100 MG TABLET (FP) PO SCH (21:29)
[2018-02-08] MEDS: PRAZOSIN HCL 1 MG CAPSULE PO SCH (21:29)
[2018-02-08] MEDS: SUVOREXANT 10 MG TABLET PO PRN (21:33)
[2018-02-09] MEDS: PRENATAL VITAMINS W/ FOLIC ACID TABLET (FP) PO SCH (10:18)
[2018-02-09] MEDS: NICOTINE 21 MG/24 HOURS TOPICAL PATCH TD SCH (10:19)
[2018-02-09] MEDS: SERTRALINE HCL 50 MG TABLET (FP) PO SCH (10:19)
[2018-02-09] MEDS: hydrOXYzine PAMOATE 50 MG CAPSULE (FP) PO PRN (13:00)
[2018-02-09] MEDS: SUVOREXANT 10 MG TABLET PO PRN (21:25)
[2018-02-09] MEDS: PRAZOSIN HCL 1 MG CAPSULE PO SCH (21:26)
[2018-02-09] MEDS: THIAMINE HCL 100 MG TABLET (FP) PO SCH (21:26)
[2018-02-10] MEDS: PRENATAL VITAMINS W/ FOLIC ACID TABLET (FP) PO SCH (10:15)
[2018-02-10] MEDS: SERTRALINE HCL 50 MG TABLET (FP) PO SCH (10:15)
[2018-02-10] MEDS: NICOTINE 21 MG/24 HOURS TOPICAL PATCH TD SCH (10:16)
[2018-02-10] MEDS: hydrOXYzine PAMOATE 50 MG CAPSULE (FP) PO PRN ×2 (10:16→21:24)
[2018-02-10] MEDS: THIAMINE HCL 100 MG TABLET (FP) PO SCH (21:24)
[2018-02-10] MEDS: SUVOREXANT 10 MG TABLET PO PRN (21:24)
[2018-02-10] MEDS: PRAZOSIN HCL 1 MG CAPSULE PO SCH (21:24)
[2018-02-11] MEDS: SERTRALINE HCL 50 MG TABLET (FP) PO SCH (09:56)
[2018-02-11] MEDS: NICOTINE 21 MG/24 HOURS TOPICAL PATCH TD SCH (09:56)
[2018-02-11] MEDS: PRENATAL VITAMINS W/ FOLIC ACID TABLET (FP) PO SCH (09:57)
[2018-02-11] MEDS: THIAMINE HCL 100 MG TABLET (FP) PO SCH (21:22)
[2018-02-11] MEDS: PRAZOSIN HCL 1 MG CAPSULE PO SCH (21:23)
[2018-02-11] MEDS: hydrOXYzine PAMOATE 50 MG CAPSULE (FP) PO PRN (21:23)
[2018-02-11] MEDS ORDERED: SUVOREXANT 10 MG TABLET PO PRN (22:21)
--- NOTE | 2018-02-11 23:13 | PN ---
[facility] Progress Note Note: Psychiatry Attending's on-call note : Complaint of insomnia presented, over telephone, by the patient. Mr Lyle, previously known to this leader writer, is requesting suvorexant. Maintains that melatonin is " worthless " and belsomra efficacious + helpful. Insists on its inclusion in the medication regimen until completion of rehabilitation. Repair Order Clerk reminded the patient of the benefits of good sleep hygiene and sobriety. Revisited side effects/benefits of belsomra with the patient. Chart was reviewed. Vitals checked. Medications scrutinized. Case discussed with RN on duty, Ms Araiza. Progress notes from psychiatrist, Dr Beach + DIANA Sharma : read. Dose of belsomra : verified. Intervention : belsomra 10 mg po hs prn. Renewed at patient's request. Consent ( verbal) given to leader writer.
[2018-02-12 06:44] VITALS: BP 114/75; PULSE 93; TEMP 98
[2018-02-12] MEDS: SERTRALINE HCL 50 MG TABLET (FP) PO SCH (09:13)
[2018-02-12] MEDS: PRENATAL VITAMINS W/ FOLIC ACID TABLET (FP) PO SCH (09:13)
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
== END 2018-02-12 10:05 | disposition home or self-care (01) | DRG 772 ==
LOC: YASAS 12:54 → Y5N 12:55
PROVIDERS: ADMIT Psychiatry & Neurology Psychiatry; ATTEND Psychiatry & Neurology Psychiatry
PROC: HZ42ZZZ Group Counseling for Substance Abuse Treatment, Cognitive-Behavioral (ICD-10-PCS; principal; 2018-02-03)
DX: F11.20 Opioid dependence, uncomplicated (principal); F10.20 Alcohol dependence, uncomplicated; F14.20 Cocaine dependence, uncomplicated; F17.210 Nicotine dependence, cigarettes, uncomplicated; F43.10 Post-traumatic stress disorder, unspecified; F33.9 Major depressive disorder, recurrent, unspecified; B18.2 Chronic viral hepatitis C; R76.11 Nonspecific reaction to tuberculin skin test without active tuberculosis; M19.90 Unspecified osteoarthritis, unspecified site

== ENCOUNTER 2018-06-23 10:47 | Inpatient (IN) | payer OTHER ==
[2018-06-23 11:34] VITALS: BMI 24.6
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
[2018-06-23] MEDS ORDERED: MELATONIN 5 MG TABLETS PO PRN (12:51)
[2018-06-23] MEDS ORDERED: BISMUTH SUBSALICYLATE 524 MG/30 ML UD PO PRN (12:51)
[2018-06-23] MEDS ORDERED: MAGNESIUM HYDROX 2400MG/30ML ORAL SUSPENSION 30 ML CUP PO PRN (12:51)
[2018-06-23] MEDS ORDERED: IBUPROFEN 400 MG TABLET (FP) PO PRN (12:51)
[2018-06-23] MEDS ORDERED: ACETAMINOPHEN 325 MG TABLET (FP) PO PRN ×2 (12:51)
[2018-06-23] MEDS ORDERED: METHOCARBAMOL 500 MG TABLET PO PRN (12:51)
[2018-06-23] MEDS ORDERED: MENTHOL/PHENOL 1 EACH UD MM PRN (12:51)
[2018-06-23] MEDS ORDERED: MAG HYDROX/AL HYDROX/SIMETH 30 ML UNIT-DOSE CUP PO PRN (12:51)
[2018-06-23] MEDS ORDERED: MAGNESIUM CITRATE 300 ML BOTTLE PO PRN (12:51)
[2018-06-23] MEDS ORDERED: METHADONE HCL 10 MG TABLET PO ONE (12:56)
[2018-06-23] MEDS: chlordiazePOXIDE HCL 25 MG CAPSULE PO PRN (14:54)
[2018-06-23] MEDS: NICOTINE 21 MG/24 HOURS TOPICAL PATCH TD SCH (14:55)
[2018-06-23] MEDS: chlordiazePOXIDE HCL 25 MG CAPSULE PO SCH ×2 (17:58→22:04)
[2018-06-23 17:59] LABS: URINE APPEARANCE TURBID; URINE BILIRUBIN NEGATIVE (<2.0 mg/dL); URINE COLOR YELLOW; URINE GLUCOSE (UA) NEGATIVE (NEGATIVE); URINE KETONE NEGATIVE (NEGATIVE); URINE LEUK ESTERASE NEGATIVE (NEGATIVE); URINE NITRITE NEGATIVE (NEGATIVE); URINE PROTEIN NEGATIVE (NEGATIVE); URINE UROBILINOGEN NEGATIVE mg/dL (0.2-1.0)
[2018-06-23 18:09] LABS: URINE BACTERIA RARE /hpf (NONE SEEN); URINE MUCUS RARE
[2018-06-23] MEDS: THIAMINE HCL 100 MG TABLET (FP) PO SCH (22:04)
[2018-06-24] MEDS: chlordiazePOXIDE HCL 25 MG CAPSULE PO PRN (02:11)
[2018-06-24] MEDS ORDERED: METHADONE HCL 5 MG TABLET (FOR DETOX USE ONLY) ONE (05:51)
[2018-06-24] MEDS: chlordiazePOXIDE HCL 25 MG CAPSULE PO SCH ×4 (05:52→22:02)
[2018-06-24] MEDS ORDERED: METHADONE HCL 10 MG TABLET (FOR DETOX USE ONLY) ONE (05:52)
[2018-06-24] MEDS ORDERED: METHADONE HCL 5 MG TABLET PO ONE (06:00)
[2018-06-24] MEDS ORDERED: METHADONE (DETOX) 20 MG, METHADONE (DETOX) 5 MG PO ONE (06:00)
[2018-06-24] MEDS: PRENATAL VITAMINS W/ FOLIC ACID TABLET (FP) PO SCH (10:19)
[2018-06-24] MEDS: NICOTINE 21 MG/24 HOURS TOPICAL PATCH TD SCH (10:20)
[2018-06-24] MEDS: hydrOXYzine PAMOATE 25 MG CAPSULE (FP) PO PRN (10:21)
[2018-06-24 10:51] LABS: HEMOGLOBIN 13.1 GM/dL (11.7-16.9); MCH 31.6 pg (25.7-33.7); MCHC 34.5 g/dl (32.0-35.9); MEAN CELL VOLUME 91.6 fl (80-96); MEAN PLT VOLUME 8.5 fl (7.5-11.1); PLATELET COUNT 233 K/MM3 (134-434); RBC 4.15 M/mm3 (4.00-5.60); RDW 13.7 % (11.9-15.9)
[2018-06-24 11:16] LABS: BLOOD UREA NITROGEN 15 mg/dL (7-18); GLUCOSE,RANDOM 90 mg/dL (74-106)
[2018-06-24 11:17] LABS: CREATININE 0.9 mg/dL (0.55-1.3)
[2018-06-24 11:18] LABS: ALBUMIN 3.7 g/dl (3.4-5.0); ALK PHOS 97 U/L (45-117); ANION GAP 5 MMOL/L (8-16); BILIRUBIN,TOTAL 0.3 mg/dL (0.2-1); CALCIUM 8.8 mg/dL (8.5-10.1); CHLORIDE 106 mmol/L (98-107); CO2 26 mmol/L (21-32); POTASSIUM 4.2 mmol/L (3.5-5.1); SGOT/AST 11 U/L (15-37); SGPT/ALT 18 U/L (13-61); SODIUM 137 mmol/L (136-145); TOT PROT 7.3 g/dl (6.4-8.2)
--- NOTE | 2018-06-24 14:49 | PN ---
[facility] CIWA - CIWA Score Nausea/Vomitin-No Nausea/No Vomiting Muscle Tremors: 3 Anxiety: 0-No Anxiety, at Ease Agitation: 0-Normal Activity Paroxysmal Sweats: No Perspiration Orientation: 0-Oriented Tacttile Disturbances: 2-Mild Itch/Numbness/Burn Auditory Disturbances: 2-Mild Harshness/Frighten Visual Disturbances: 3-Moderate Sensitivity Headache: 0-None Present CIWA-Ar Total Score: 10 S Progress Note (SOAP) Subjective: Fatigue, Interrupted Sleep, Tremors. Objective: PATIENT A & O X 3 IN NO ACUTE DISTRESS. 06/24/18 14:44 Vital Signs Temperature 98.2 F 06/24/18 13:30 Pulse Rate 82 06/24/18 13:30 Respiratory Rate 18 06/24/18 13:30 Blood Pressure 102/73 06/24/18 13:30 O2 Sat by Pulse Oximetry (%) Laboratory Tests 06/23/18 06/24/18 06/24/18 15:00 06:00 06:00 WBC 5.0 RBC 4.15 Hgb 13.1 Hct 38.0 MCV 91.6 MCH 31.6 MCHC 34.5 RDW 13.7 Plt Count 233 MPV 8.5 Sodium 137 Potassium 4.2 Chloride 106 Carbon Dioxide 26 Anion Gap 5 L BUN 15 Creatinine 0.9 Creat Clearance w eGFR > 60 Random Glucose 90 Calcium 8.8 Total Bilirubin 0.3 AST 11 L ALT 18 Alkaline Phosphatase 97 Total Protein 7.3 Albumin 3.7 Urine Color Yellow Urine Appearance Turbid Urine pH 5.0 Ur Specific [place] 1.028 Urine Protein Negative Urine Glucose (UA) Negative Urine Ketones Negative Urine Blood 1+ H Urine Nitrite Negative Urine Bilirubin Negative Urine Urobilinogen Negative Ur Leukocyte Esterase Negative Urine WBC (Auto) None Urine RBC (Auto) 1 Urine Bacteria Rare Urine Mucus Rare RPR Titer 06/24/18 06:00 WBC RBC Hgb Hct MCV MCH MCHC RDW Plt Count MPV Sodium Potassium Chloride Carbon Dioxide Anion Gap BUN Creatinine Creat Clearance w eGFR Random Glucose Calcium Total Bilirubin AST ALT Alkaline Phosphatase Total Protein Albumin Urine Color Urine Appearance Urine pH Ur Specific [place] Urine Protein Urine Glucose (UA) Urine Ketones Urine Blood Urine Nitrite Urine Bilirubin Urine Urobilinogen Ur Leukocyte Esterase Urine WBC (Auto) Urine RBC (Auto) Urine Bacteria Urine Mucus RPR Titer Nonreactive LABS NOTED. 06/24/18 14:49 Assessment: 03/13/19 14:46 Vital Signs Temperature 98.2 F 06/24/18 13:30 Pulse Rate 82 06/24/18 13:30 Respiratory Rate 18 06/24/18 13:30 Blood Pressure 102/73 06/24/18 13:30 O2 Sat by Pulse Oximetry (%) Laboratory Tests 06/23/18 06/24/18 06/24/18 15:00 06:00 06:00 WBC 5.0 RBC 4.15 Hgb 13.1 Hct 38.0 MCV 91.6 MCH 31.6 MCHC 34.5 RDW 13.7 Plt Count 233 MPV 8.5 Sodium 137 Potassium 4.2 Chloride 106 Carbon Dioxide 26 Anion Gap 5 L BUN 15 Creatinine 0.9 Creat Clearance w eGFR > 60 Random Glucose 90 Calcium 8.8 Total Bilirubin 0.3 AST 11 L ALT 18 Alkaline Phosphatase 97 Total Protein 7.3 Albumin 3.7 Urine Color Yellow Urine Appearance Turbid Urine pH 5.0 Ur Specific [place] 1.028 Urine Protein Negative Urine Glucose (UA) Negative Urine Ketones Negative Urine Blood 1+ H Urine Nitrite Negative Urine Bilirubin Negative Urine Urobilinogen Negative Ur Leukocyte Esterase Negative Urine WBC (Auto) None Urine RBC (Auto) 1 Urine Bacteria Rare Urine Mucus Rare RPR Titer 06/24/18 06:00 WBC RBC Hgb Hct MCV MCH MCHC RDW Plt Count MPV Sodium Potassium Chloride Carbon Dioxide Anion Gap BUN Creatinine Creat Clearance w eGFR Random Glucose Calcium Total Bilirubin AST ALT Alkaline Phosphatase Total Protein Albumin Urine Color Urine Appearance Urine pH Ur Specific [place] Urine Protein Urine Glucose (UA) Urine Ketones Urine Blood Urine Nitrite Urine Bilirubin Urine Urobilinogen Ur Leukocyte Esterase Urine WBC (Auto) Urine RBC (Auto) Urine Bacteria Urine Mucus RPR Titer Nonreactive LABS NOTED. Plan: CONTINUE DETOX.
[2018-06-24] MEDS: THIAMINE HCL 100 MG TABLET (FP) PO SCH (21:52)
[2018-06-25] MEDS: chlordiazePOXIDE HCL 25 MG CAPSULE PO PRN ×2 (00:39→14:17)
[2018-06-25] MEDS: chlordiazePOXIDE HCL 25 MG CAPSULE PO SCH ×2 (05:44→10:03)
[2018-06-25] MEDS: METHADONE HCL 10 MG TABLET PO SCH (05:44)
--- NOTE | 2018-06-25 08:48 | PN ---
S CIWA - CIWA Score Nausea/Vomitin Muscle Tremors: 2 Anxiety: 2 Agitation: 2 Paroxysmal Sweats: 1-Minimal Palms Moist Orientation: 0-Oriented Tacttile Disturbances: 1-Very Mild Itch/Numbness Auditory Disturbances: 1-Very Mild Visual Disturbances: 0-None Headache: 1-Very Mild CIWA-Ar Total Score: 12 BHS Progress Note (SOAP) Subjective: alert,irritable,anxious,interrupted sleep,tremor Objective: 06/25/18 08:53 Vital Signs Temperature 97.9 F 06/25/18 07:47 Pulse Rate 88 06/25/18 07:47 Respiratory Rate 18 06/25/18 07:47 Blood Pressure 147/73 06/25/18 07:47 O2 Sat by Pulse Oximetry (%) Laboratory Last Values WBC 5.0 K/mm3 (4.0-10.0) 06/24/18 06:00 RBC 4.15 M/mm3 (4.00-5.60) 06/24/18 06:00 Hgb 13.1 GM/dL (11.7-16.9) 06/24/18 06:00 Hct 38.0 % (35.4-49) 06/24/18 06:00 MCV 91.6 fl (80-96) 06/24/18 06:00 MCH 31.6 pg (25.7-33.7) 06/24/18 06:00 MCHC 34.5 g/dl (32.0-35.9) 06/24/18 06:00 RDW 13.7 % (11.9-15.9) 06/24/18 06:00 Plt Count 233 K/MM3 (134-434) 06/24/18 06:00 MPV 8.5 fl (7.5-11.1) 06/24/18 06:00 Sodium 137 mmol/L (136-145) 06/24/18 06:00 Potassium 4.2 mmol/L (3.5-5.1) 06/24/18 06:00 Chloride 106 mmol/L (98-107) 06/24/18 06:00 Carbon Dioxide 26 mmol/L (21-32) 06/24/18 06:00 Anion Gap 5 MMOL/L (8-16) L 06/24/18 06:00 BUN 15 mg/dL (7-18) 06/24/18 06:00 Creatinine 0.9 mg/dL (0.55-1.3) 06/24/18 06:00 Creat Clearance w eGFR > 60 (>60) 06/24/18 06:00 Random Glucose 90 mg/dL (74-106) 06/24/18 06:00 Calcium 8.8 mg/dL (8.5-10.1) 06/24/18 06:00 Total Bilirubin 0.3 mg/dL (0.2-1) 06/24/18 06:00 AST 11 U/L (15-37) L 06/24/18 06:00 ALT 18 U/L (13-61) 06/24/18 06:00 Alkaline Phosphatase 97 U/L (45-117) 06/24/18 06:00 Total Protein 7.3 g/dl (6.4-8.2) 06/24/18 06:00 Albumin 3.7 g/dl (3.4-5.0) 06/24/18 06:00 Urine Color Yellow 06/23/18 15:00 Urine Appearance Turbid 06/23/18 15:00 Urine pH 5.0 (5.0-8.0) 06/23/18 15:00 Ur Specific [place] 1.028 (1.010-1.035) 06/23/18 15:00 Urine Protein Negative (NEGATIVE) 06/23/18 15:00 Urine Glucose (UA) Negative (NEGATIVE) 06/23/18 15:00 Urine Ketones Negative (NEGATIVE) 06/23/18 15:00 Urine Blood 1+ (NEGATIVE) H 06/23/18 15:00 Urine Nitrite Negative (NEGATIVE) 06/23/18 15:00 Urine Bilirubin Negative (<2.0 mg/dL) 06/23/18 15:00 Urine Urobilinogen Negative mg/dL (0.2-1.0) 06/23/18 15:00 Ur Leukocyte Esterase Negative (NEGATIVE) 06/23/18 15:00 Urine WBC (Auto) None /hpf (3-5) 06/23/18 15:00 Urine RBC (Auto) 1 /hpf (0-3) 06/23/18 15:00 Urine Bacteria Rare /hpf (NONE SEEN) 06/23/18 15:00 Urine Mucus Rare 06/23/18 15:00 RPR Titer Nonreactive (NONREACTIVE) 06/24/18 06:00 Assessment: 06/25/18 08:54 withdrawal symptom Plan: continue detox
[2018-06-25] MEDS: PRENATAL VITAMINS W/ FOLIC ACID TABLET (FP) PO SCH (10:02)
[2018-06-25] MEDS: NICOTINE 21 MG/24 HOURS TOPICAL PATCH TD SCH (10:03)
[2018-06-25] MEDS: hydrOXYzine PAMOATE 25 MG CAPSULE (FP) PO PRN (14:18)
[2018-06-25] MEDS ORDERED: chlordiazePOXIDE HCL 10 MG CAPSULE PO PRN (17:00)
[2018-06-25] MEDS: chlordiazePOXIDE HCL 10 MG CAPSULE PO SCH ×2 (17:57→22:00)
[2018-06-25] MEDS: THIAMINE HCL 100 MG TABLET (FP) PO SCH (22:00)
[2018-06-26] MEDS: hydrOXYzine PAMOATE 25 MG CAPSULE (FP) PO PRN (02:22)
[2018-06-26] MEDS: chlordiazePOXIDE HCL 10 MG CAPSULE PO SCH ×2 (05:18→10:30)
[2018-06-26] MEDS: METHADONE HCL 10 MG TABLET PO SCH (05:18)
[2018-06-26] MEDS: NICOTINE 21 MG/24 HOURS TOPICAL PATCH TD SCH (10:30)
[2018-06-26] MEDS: PRENATAL VITAMINS W/ FOLIC ACID TABLET (FP) PO SCH (10:30)
--- NOTE | 2018-06-26 11:38 | PN ---
B[facility] Progress Note (SOAP) Subjective: tired Objective: 06/26/18 11:31 Vital Signs Temperature 100.4 F H 06/26/18 09:35 Pulse Rate 103 H 06/26/18 09:35 Respiratory Rate 18 06/26/18 09:35 Blood Pressure 108/76 06/26/18 09:35 O2 Sat by Pulse Oximetry (%) aaox3 ambulating no acute distress Assessment: 06/26/18 11:38 mild withdrawal Plan: continue detox increase fluids d/c in am
--- NOTE | 2018-06-26 13:54 | PN ---
[facility] Progress Note Note: pt states he is feeling fine and wants to go to rehab. d/c to rehab today.
--- NOTE | 2018-06-26 13:56 | DS ---
[facility] Detox Discharge Summary Admission Date: 06/23/18 Discharge Date: 06/26/18 - History Present History: Alcohol Dependence, Cocaine Dependence, MMTP - Physical Exam Results Vital Signs: Vital Signs Temperature 99.0 F 06/26/18 12:49 Pulse Rate 115 H 06/26/18 12:49 Respiratory Rate 18 06/26/18 12:49 Blood Pressure 122/68 06/26/18 12:49 O2 Sat by Pulse Oximetry (%) - Treatment Hospital Course: Detox Protocol Followed, Detoxed Safely, Responded well, Discharged Condition Good, Rehab Referral Accepted - Medication Discharge Medications: Ambulatory Orders Prazosin HCl [Minipress -] 5 mg PO HS 10/21/17 Sertraline HCl [Zoloft -] 25 mg PO DAILY #30 tablet 12/02/17 Prazosin HCl [Minipress -] 3 mg PO HS #90 capsule 02/12/18 Sertraline HCl [Zoloft -] 50 mg PO DAILY #30 tablet 02/12/18 - Diagnosis (1) Heroin abuse Current Visit: Yes Status: Acute (2) Methadone maintenance therapy patient Current Visit: Yes Status: Chronic (3) Weight loss Current Visit: Yes Status: Acute (4) Cocaine dependence Current Visit: Yes Status: Chronic Qualifiers: Substance use status: uncomplicated Qualified Code(s): F14.20 - Cocaine dependence, uncomplicated (5) Depressed mood Current Visit: No Status: Acute (6) Opioid dependence Current Visit: Yes Status: Chronic Qualifiers: Substance use status: uncomplicated Qualified Code(s): F11.20 - Opioid dependence, uncomplicated (7) Substance induced mood disorder Current Visit: No Status: Acute (8) Substance-induced sleep disorder Current Visit: No Status: Acute (9) Alcohol dependence with withdrawal Current Visit: No Status: Chronic Qualifiers: Complication of substance-induced condition: uncomplicated Qualified Code(s ): F10.230 - Alcohol dependence with withdrawal, uncomplicated (10) Anxiety Current Visit: No Status: Chronic (11) Back pain Current Visit: No Status: Chronic Qualifiers: Back pain location: low back pain Chronicity: acute Back pain laterality : bilateral Sciatica presence: without sciatica Qualified Code(s): M54.5 - Low back pain (12) Depression Current Visit: No Status: Chronic Qualifiers: Depression Type: unspecified Qualified Code(s): F32.9 - Major depressive disorder, single episode, unspecified (13) Hx of chronic arthritis Current Visit: No Status: Chronic (14) MDD (major depressive disorder) Current Visit: No Status: Chronic (15) Nicotine dependence Current Visit: Yes Status: Chronic Qualifiers: Nicotine product type: cigarettes Substance use status: uncomplicated Qualified Code(s): F17.210 - Nicotine dependence, cigarettes, uncomplicated (16) Opioid dependence with withdrawal Current Visit: Yes Status: Chronic (17) PPD positive Current Visit: No Status: Chronic (18) PTSD (post-traumatic stress disorder) Current Visit: No Status: Chronic (19) Traumatic arthritis Current Visit: No Status: Chronic (20) Hepatitis C Current Visit: No Status: Suspected Qualifiers: Viral hepatitis chronicity: chronic Hepatic coma status: without hepatic coma Qualified Code(s): B18.2 - Chronic viral hepatitis C - AMA Did Patient Leave Against Medical Advice: No (referred to inpatient rehab [facility])
[2018-06-26] MEDS ORDERED: chlordiazePOXIDE HCL 10 MG CAPSULE PO SCH (17:00)
[2018-06-26 17:28] VITALS: BP 104/56; PULSE 92; TEMP 101.7
== END 2018-06-26 20:41 | disposition other institution (70) | DRG 773 ==
LOC: YASAS 10:47 → Y6N 13:09
PROVIDERS: ADMIT Surgery; ATTEND Surgery
PROC: HZ2ZZZZ Detoxification Services for Substance Abuse Treatment (ICD-10-PCS; principal; 2018-06-23)
DX: F10.230 Alcohol dependence with withdrawal, uncomplicated (principal); F14.20 Cocaine dependence, uncomplicated; F11.20 Opioid dependence, uncomplicated; F17.210 Nicotine dependence, cigarettes, uncomplicated; F19.282 Other psychoactive substance dependence with psychoactive substance-induced sleep disorder; F19.24 Other psychoactive substance dependence with psychoactive substance-induced mood disorder; F32.9 Major depressive disorder, single episode, unspecified; F41.9 Anxiety disorder, unspecified; F43.10 Post-traumatic stress disorder, unspecified; B18.2 Chronic viral hepatitis C; M12.9 Arthropathy, unspecified; M54.5 Low back pain; M12.50 Traumatic arthropathy, unspecified site; R63.4 Abnormal weight loss; Z68.24 Body mass index [BMI] 24.0-24.9, adult; R76.11 Nonspecific reaction to tuberculin skin test without active tuberculosis; Z87.39 Personal history of other diseases of the musculoskeletal system and connective tissue
CPT/HCPCS: 36415; 80053; 81003; 81015; 85027; 86593

== ENCOUNTER 2018-06-26 19:53 | Inpatient (IN) | payer OTHER ==
--- NOTE | 2018-06-26 20:19 | HP ---
[facility] Rehab Assess/Revision - Admission History Admitted to Rehab from: [facility] Date of Admission to Rehab: 06/26/2018 - Findings Detox History & Physical reviewed: Yes (Tolerated alcohol detox, opioid use stabilized on methadone.) Concur with findings: Yes Comments/Additional Findings: Patient w/ cocaine and nicotine use disorder. On methadone agoinst treatment. Hx PPD+. Inpatient Rehab Admission - Rehab Decision to Admit Inpatient rehab admission?: Yes - Initial Determination Are CD services needed?: Yes Free of communicable disease: Yes Not in need of hospitalization: Yes - Rehab Admission Criteria Previous failed treatment: Yes Poor recovery environment: Yes Comorbidities: Yes Lacks judgement: No Patient is meeting Inpatient Rehab admission criteria:: Yes
[2018-06-26] MEDS ORDERED: MENTHOL/PHENOL 1 EACH UD MM PRN (20:46)
[2018-06-26] MEDS ORDERED: IBUPROFEN 400 MG TABLET (FP) PO PRN (20:46)
[2018-06-26] MEDS ORDERED: MAGNESIUM HYDROX 2400MG/30ML ORAL SUSPENSION 30 ML CUP PO PRN (20:46)
[2018-06-26] MEDS ORDERED: LOPERAMIDE HCL 2 MG CAPSULE PO PRN (20:46)
[2018-06-26] MEDS ORDERED: MAGNESIUM CITRATE 300 ML BOTTLE PO PRN (20:46)
[2018-06-26] MEDS ORDERED: ACETAMINOPHEN 325 MG TABLET (FP) PO PRN (20:46)
[2018-06-26] MEDS ORDERED: guaiFENesin 200 MG/10 ML 10 ML UNIT-DOSE CUPS PO PRN (20:46)
[2018-06-26] MEDS: THIAMINE HCL 100 MG TABLET (FP) PO SCH (22:24)
[2018-06-26 23:14] VITALS: BMI 25.7
[2018-06-27] MEDS: METHADONE HCL 10 MG TABLET PO SCH (08:27)
[2018-06-27] MEDS: NICOTINE 21 MG/24 HOURS TOPICAL PATCH TD SCH (10:26)
[2018-06-27] MEDS: PRENATAL VITAMINS W/ FOLIC ACID TABLET (FP) PO SCH (10:26)
[2018-06-27] MEDS: hydrOXYzine PAMOATE 50 MG CAPSULE (FP) PO PRN (21:40)
[2018-06-27] MEDS: THIAMINE HCL 100 MG TABLET (FP) PO SCH (21:40)
[2018-06-27] MEDS: MAG HYDROX/AL HYDROX/SIMETH 30 ML UNIT-DOSE CUP PO PRN (23:51)
[2018-06-28] MEDS: hydrOXYzine PAMOATE 50 MG CAPSULE (FP) PO PRN ×2 (02:17→21:40)
[2018-06-28] MEDS: MAG HYDROX/AL HYDROX/SIMETH 30 ML UNIT-DOSE CUP PO PRN ×2 (02:55→10:49)
[2018-06-28] MEDS: METHADONE HCL 10 MG TABLET PO SCH (06:43)
[2018-06-28] MEDS: PRENATAL VITAMINS W/ FOLIC ACID TABLET (FP) PO SCH (10:48)
[2018-06-28] MEDS: NICOTINE 21 MG/24 HOURS TOPICAL PATCH TD SCH (10:48)
[2018-06-28] MEDS: THIAMINE HCL 100 MG TABLET (FP) PO SCH (21:39)
[2018-06-29] MEDS: METHADONE HCL 10 MG TABLET PO SCH (06:36)
[2018-06-29] MEDS: NICOTINE POLACRILEX 2 MG GUM BUC PRN (06:38)
[2018-06-29] MEDS: PRENATAL VITAMINS W/ FOLIC ACID TABLET (FP) PO SCH (09:46)
[2018-06-29] MEDS: MAG HYDROX/AL HYDROX/SIMETH 30 ML UNIT-DOSE CUP PO PRN (09:46)
[2018-06-29] MEDS: NICOTINE 21 MG/24 HOURS TOPICAL PATCH TD SCH (09:46)
[2018-06-29] MEDS: THIAMINE HCL 100 MG TABLET (FP) PO SCH (21:45)
[2018-06-29] MEDS: hydrOXYzine PAMOATE 50 MG CAPSULE (FP) PO PRN (21:45)
[2018-06-30] MEDS: METHADONE HCL 10 MG TABLET PO SCH (06:11)
[2018-06-30] MEDS: NICOTINE 21 MG/24 HOURS TOPICAL PATCH TD SCH (09:44)
[2018-06-30] MEDS: PRENATAL VITAMINS W/ FOLIC ACID TABLET (FP) PO SCH (09:46)
[2018-06-30] MEDS: MAG HYDROX/AL HYDROX/SIMETH 30 ML UNIT-DOSE CUP PO PRN (09:46)
[2018-06-30] MEDS: THIAMINE HCL 100 MG TABLET (FP) PO SCH (21:52)
[2018-06-30] MEDS: hydrOXYzine PAMOATE 50 MG CAPSULE (FP) PO PRN (21:53)
[2018-06-30] MEDS: MELATONIN 5 MG TABLETS PO PRN (21:53)
[2018-07-01] MEDS: METHADONE HCL 10 MG TABLET PO SCH (06:15)
[2018-07-01] MEDS: NICOTINE POLACRILEX 2 MG GUM BUC PRN (06:17)
[2018-07-01] MEDS: PRENATAL VITAMINS W/ FOLIC ACID TABLET (FP) PO SCH (09:35)
[2018-07-01] MEDS: MAG HYDROX/AL HYDROX/SIMETH 30 ML UNIT-DOSE CUP PO PRN (09:35)
[2018-07-01] MEDS: NICOTINE 21 MG/24 HOURS TOPICAL PATCH TD SCH (09:35)
[2018-07-01] MEDS: MELATONIN 5 MG TABLETS PO PRN (21:40)
[2018-07-01] MEDS: hydrOXYzine PAMOATE 50 MG CAPSULE (FP) PO PRN (21:41)
[2018-07-01] MEDS: THIAMINE HCL 100 MG TABLET (FP) PO SCH (21:41)
[2018-07-02] MEDS: METHADONE HCL 10 MG TABLET PO SCH (06:44)
[2018-07-02] MEDS: NICOTINE POLACRILEX 2 MG GUM BUC PRN ×2 (06:46→10:29)
[2018-07-02] MEDS: PRENATAL VITAMINS W/ FOLIC ACID TABLET (FP) PO SCH (10:28)
[2018-07-02] MEDS: NICOTINE 21 MG/24 HOURS TOPICAL PATCH TD SCH (10:29)
[2018-07-02] MEDS: MELATONIN 5 MG TABLETS PO PRN (21:41)
[2018-07-02] MEDS: hydrOXYzine PAMOATE 50 MG CAPSULE (FP) PO PRN (21:41)
[2018-07-02] MEDS: THIAMINE HCL 100 MG TABLET (FP) PO SCH (21:41)
[2018-07-03] MEDS: METHADONE HCL 10 MG TABLET PO SCH (06:28)
[2018-07-03] MEDS: NICOTINE POLACRILEX 2 MG GUM BUC PRN ×2 (06:40→10:17)
[2018-07-03] MEDS: PRENATAL VITAMINS W/ FOLIC ACID TABLET (FP) PO SCH (10:17)
[2018-07-03] MEDS: NICOTINE 21 MG/24 HOURS TOPICAL PATCH TD SCH (10:17)
[2018-07-03] MEDS: MELATONIN 5 MG TABLETS PO PRN (21:39)
[2018-07-03] MEDS: THIAMINE HCL 100 MG TABLET (FP) PO SCH (21:39)
[2018-07-03] MEDS: hydrOXYzine PAMOATE 50 MG CAPSULE (FP) PO PRN (21:39)
[2018-07-04] MEDS: METHADONE HCL 10 MG TABLET PO SCH (06:46)
[2018-07-04] MEDS: NICOTINE POLACRILEX 2 MG GUM BUC PRN ×2 (06:47→10:31)
[2018-07-04] MEDS: PRENATAL VITAMINS W/ FOLIC ACID TABLET (FP) PO SCH (10:31)
[2018-07-04] MEDS: NICOTINE 21 MG/24 HOURS TOPICAL PATCH TD SCH (10:31)
[2018-07-04] MEDS: MELATONIN 5 MG TABLETS PO PRN (21:40)
[2018-07-04] MEDS: hydrOXYzine PAMOATE 50 MG CAPSULE (FP) PO PRN (21:40)
[2018-07-04] MEDS: THIAMINE HCL 100 MG TABLET (FP) PO SCH (21:41)
[2018-07-05] MEDS: METHADONE HCL 10 MG TABLET PO SCH (06:22)
[2018-07-05] MEDS: PRENATAL VITAMINS W/ FOLIC ACID TABLET (FP) PO SCH (10:21)
[2018-07-05] MEDS: NICOTINE 21 MG/24 HOURS TOPICAL PATCH TD SCH (10:21)
[2018-07-05] MEDS: NICOTINE POLACRILEX 2 MG GUM BUC PRN (10:22)
[2018-07-05] MEDS: hydrOXYzine PAMOATE 50 MG CAPSULE (FP) PO PRN (21:42)
[2018-07-05] MEDS: MELATONIN 5 MG TABLETS PO PRN (21:42)
[2018-07-05] MEDS: THIAMINE HCL 100 MG TABLET (FP) PO SCH (21:42)
[2018-07-06] MEDS: METHADONE HCL 10 MG TABLET PO SCH (06:32)
[2018-07-06] MEDS: NICOTINE POLACRILEX 2 MG GUM BUC PRN ×2 (06:33→10:43)
[2018-07-06] MEDS: PRENATAL VITAMINS W/ FOLIC ACID TABLET (FP) PO SCH (10:42)
[2018-07-06] MEDS: NICOTINE 21 MG/24 HOURS TOPICAL PATCH TD SCH (10:42)
[2018-07-06] MEDS: THIAMINE HCL 100 MG TABLET (FP) PO SCH (21:47)
[2018-07-06] MEDS: hydrOXYzine PAMOATE 50 MG CAPSULE (FP) PO PRN (21:47)
[2018-07-06] MEDS: MELATONIN 5 MG TABLETS PO PRN (21:47)
[2018-07-07] MEDS: METHADONE HCL 10 MG TABLET PO SCH (06:41)
[2018-07-07] MEDS: PRENATAL VITAMINS W/ FOLIC ACID TABLET (FP) PO SCH (10:26)
[2018-07-07] MEDS: NICOTINE POLACRILEX 2 MG GUM BUC PRN ×2 (10:26→21:30)
[2018-07-07] MEDS: NICOTINE 21 MG/24 HOURS TOPICAL PATCH TD SCH (10:26)
[2018-07-07] MEDS: hydrOXYzine PAMOATE 50 MG CAPSULE (FP) PO PRN (21:30)
[2018-07-07] MEDS: MELATONIN 5 MG TABLETS PO PRN (21:30)
[2018-07-07] MEDS: THIAMINE HCL 100 MG TABLET (FP) PO SCH (21:30)
[2018-07-08] MEDS: METHADONE HCL 10 MG TABLET PO SCH (06:34)
[2018-07-08] MEDS: NICOTINE POLACRILEX 2 MG GUM BUC PRN ×3 (06:36→21:38)
[2018-07-08] MEDS: PRENATAL VITAMINS W/ FOLIC ACID TABLET (FP) PO SCH (10:35)
[2018-07-08] MEDS: NICOTINE 21 MG/24 HOURS TOPICAL PATCH TD SCH (10:35)
[2018-07-08] MEDS: hydrOXYzine PAMOATE 50 MG CAPSULE (FP) PO PRN (21:38)
[2018-07-08] MEDS: MELATONIN 5 MG TABLETS PO PRN (21:38)
[2018-07-08] MEDS: THIAMINE HCL 100 MG TABLET (FP) PO SCH (21:38)
[2018-07-09] MEDS: METHADONE HCL 10 MG TABLET PO SCH (06:05)
[2018-07-09] MEDS: NICOTINE POLACRILEX 2 MG GUM BUC PRN (06:06)
[2018-07-09 07:23] VITALS: BP 121/67; PULSE 81; TEMP 97.6
[2018-07-09] MEDS: NICOTINE 21 MG/24 HOURS TOPICAL PATCH TD SCH (09:26)
[2018-07-09] MEDS: PRENATAL VITAMINS W/ FOLIC ACID TABLET (FP) PO SCH (09:26)
--- NOTE | 2018-07-09 12:41 | PN ---
[facility] Progress Note Note: PT COMPLETED REHAB AND DISCHARGED TODAY. PT HAS BEEN REFERRED FOR CD AFTERCARE AT [facility], [place], [place]. PT REPORTS HE HAS PRIMARY CARE WITH DR. MATTHEWS AT [facility] ON [address] [place], [place] FOR MEDICAL MANAGEMENT. PT IS ALERT O X 3. DENIES S/H/I. COURTESY RX NARCAN ANS SEEN BELOW SENT ELECTRONICALLY TO [facility] FOR FISH PEDDLER AFTER DISCHARGE. Home Medications Medication Instructions Recorded Prazosin HCl [Minipress -] 5 mg PO HS 10/21/17 Sertraline HCl [Zoloft -] 25 mg PO DAILY #30 tablet 12/02/17 Prazosin HCl [Minipress -] 3 mg PO HS #90 capsule 02/12/18 Sertraline HCl [Zoloft -] 50 mg PO DAILY #30 tablet 02/12/18 Naloxone HCl [Narcan] 4 mg NS ONCE #1 spray 07/09/18 Vital Signs (72 hours) 07/07/18 07/07/18 07/07/18 00:30 03:30 07:06 Temperature 97.8 F Pulse Rate 83 Respiratory 18 18 18 Rate Blood Pressure 114/73 07/08/18 07/08/18 07/08/18 00:30 03:30 06:53 Temperature 98.3 F Pulse Rate 84 Respiratory 18 18 18 Rate Blood Pressure 112/74 07/09/18 07/09/18 07/09/18 00:30 03:30 07:23 Temperature 97.6 F Pulse Rate 81 Respiratory 18 18 18 Rate Blood Pressure 121/67 NAD MEDICALLY STABLE PLAN:FOLLOW UP WITH CD AFTERCARE RECOMMENDATION ABOVE. FOLLOW UP WITH MEDICAL MANAGEMENT WITH PMD WITHIN 1 WEEK All Active Problems Back pain (Chronic) Cocaine dependence (Chronic) Hx of chronic arthritis (Chronic) Methadone maintenance therapy patient (Chronic) Nicotine dependence (Chronic) Opioid dependence (Chronic)
== END 2018-07-09 09:30 | disposition home or self-care (01) | DRG 772 ==
LOC: YASAS 19:53 → Y5N 19:57
PROVIDERS: ADMIT Neuromusculoskeletal Medicine & OMM; ATTEND Neuromusculoskeletal Medicine & OMM
PROC: HZ42ZZZ Group Counseling for Substance Abuse Treatment, Cognitive-Behavioral (ICD-10-PCS; principal; 2018-06-26)
DX: F11.20 Opioid dependence, uncomplicated (principal); F14.20 Cocaine dependence, uncomplicated; F17.210 Nicotine dependence, cigarettes, uncomplicated; B18.2 Chronic viral hepatitis C; M54.5 Low back pain; G89.29 Other chronic pain; M19.90 Unspecified osteoarthritis, unspecified site

== ENCOUNTER 2018-10-19 10:09 | Inpatient (IN) | payer OTHER ==
[2018-10-19 11:02] VITALS: BMI 24.9
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
[2018-10-19] MEDS ORDERED: IBUPROFEN 400 MG TABLET (FP) PO PRN (13:52)
[2018-10-19] MEDS ORDERED: ACETAMINOPHEN 325 MG TABLET (FP) PO PRN ×2 (13:52)
[2018-10-19] MEDS ORDERED: BISMUTH SUBSALICYLATE 524 MG/30 ML UD PO PRN (13:52)
[2018-10-19] MEDS ORDERED: chlordiazePOXIDE HCL 25 MG CAPSULE PO PRN (13:52)
[2018-10-19] MEDS ORDERED: MENTHOL/PHENOL 1 EACH UD MM PRN (13:52)
[2018-10-19] MEDS ORDERED: METHOCARBAMOL 500 MG TABLET PO PRN (13:52)
[2018-10-19] MEDS ORDERED: hydrOXYzine PAMOATE 25 MG CAPSULE (FP) PO PRN (13:52)
[2018-10-19] MEDS ORDERED: NICOTINE POLACRILEX 2 MG GUM BUC PRN (13:52)
[2018-10-19] MEDS ORDERED: cloNIDine HCL 0.1 MG TABLET PO PRN (13:52)
[2018-10-19] MEDS ORDERED: MAGNESIUM CITRATE 300 ML BOTTLE PO PRN (13:52)
[2018-10-19] MEDS ORDERED: MAG HYDROX/AL HYDROX/SIMETH 30 ML UNIT-DOSE CUP PO PRN (13:52)
[2018-10-19] MEDS ORDERED: MAGNESIUM HYDROX 2400MG/30ML ORAL SUSPENSION 30 ML CUP PO PRN (13:52)
--- NOTE | 2018-10-19 14:07 | PN ---
ANN Progress Note Note: this 57 years old male with heroin dependence and alcohol dependence need detox i personally present and review the history and physical examination with Dr.harmanpree Ortiz discussion with plan of management ,medical decision ,agreed and concurred that this patient need inpatient detox,medical manage with methadone and librium regimen
[2018-10-19] MEDS ORDERED: METHADONE HCL 10 MG TABLET (FOR DETOX USE ONLY) PO ONE (15:15)
[2018-10-19 16:53] LABS: HEMATOCRIT 38.3 % (35.4-49); HEMOGLOBIN 12.9 GM/dL (11.7-16.9); MCH 30.8 pg (25.7-33.7); MCHC 33.7 g/dl (32.0-35.9); MEAN CELL VOLUME 91.4 fl (80-96); MEAN PLT VOLUME 8.7 fl (7.5-11.1); PLATELET COUNT 216 K/MM3 (134-434); RBC 4.19 M/mm3 (4.00-5.60); RDW 13.2 % (11.9-15.9); WHITE BLOOD COUNT 4.5 K/mm3 (4.0-10.0)
[2018-10-19 17:01] LABS: ALBUMIN 3.6 g/dl (3.4-5.0); BILIRUBIN,TOTAL 0.2 mg/dL (0.2-1); BLOOD UREA NITROGEN 10.3 mg/dL (7-18); CREATININE 0.9 mg/dL (0.55-1.3); POTASSIUM 3.8 mmol/L (3.5-5.1); TOT PROT 7.3 g/dl (6.4-8.2)
[2018-10-19] MEDS: chlordiazePOXIDE HCL 25 MG CAPSULE PO SCH ×2 (17:21→22:11)
[2018-10-19] MEDS: THIAMINE HCL 100 MG TABLET (FP) PO SCH (22:11)
[2018-10-20] MEDS: chlordiazePOXIDE HCL 25 MG CAPSULE PO SCH ×4 (06:03→22:08)
[2018-10-20] MEDS ORDERED: METHADONE HCL 5 MG TABLET (FOR DETOX USE ONLY) ONE (09:42)
[2018-10-20] MEDS ORDERED: METHADONE HCL 10 MG TABLET (FOR DETOX USE ONLY) ONE (09:42)
[2018-10-20] MEDS ORDERED: METHADONE (DETOX) 20 MG, METHADONE (DETOX) 5 MG PO ONE (10:00)
[2018-10-20] MEDS: PRENATAL VITAMINS W/ FOLIC ACID TABLET (FP) PO SCH (10:17)
--- NOTE | 2018-10-20 11:05 | PN ---
[facility] CIWA - CIWA Score Nausea/Vomitin-Mild Nausea/No Vomiting Muscle Tremors: 3 Anxiety: 2 Agitation: 2 Paroxysmal Sweats: 1-Minimal Palms Moist Orientation: 0-Oriented Tacttile Disturbances: 1-Very Mild Itch/Numbness Auditory Disturbances: 0-None Visual Disturbances: 0-None Headache: 1-Very Mild CIWA-Ar Total Score: 11 [facility]HS COWS - Scale Resting Pulse: 0= [place] 80 or Below Sweatin= Chills/Flushing Restless Observation: 0= Sits Still Pupil Size: 0= Normal to Room Light Bone or Joint Aches: 1= Mild Discomfort Runny Nose/ Eye Tearin= Nasal Congestion GI Upset > 30mins: 2= Nausea/Diarrhea Tremor Observation of Outstretched Hands: 2= Slight Tremor Visible Yawning Observation: 2= >3x During Session Anxiety or Irritability: 2=Irritable/Anxious Goose Flesh Skin: 0=Smooth Skin COWS Score: 11 [facility] Progress Note (SOAP) Subjective: tremor body aches headaches Objective: 10/20/18 11:10 Vital Signs Temperature 97.5 F L 10/20/18 09:16 Pulse Rate 70 10/20/18 09:16 Respiratory Rate 20 10/20/18 09:16 Blood Pressure 122/77 10/20/18 09:16 O2 Sat by Pulse Oximetry (%) Laboratory Last Values WBC 4.5 K/mm3 (4.0-10.0) 10/19/18 14:05 RBC 4.19 M/mm3 (4.00-5.60) 10/19/18 14:05 Hgb 12.9 GM/dL (11.7-16.9) 10/19/18 14:05 Hct 38.3 % (35.4-49) 10/19/18 14:05 MCV 91.4 fl (80-96) 10/19/18 14:05 MCH 30.8 pg (25.7-33.7) 10/19/18 14:05 MCHC 33.7 g/dl (32.0-35.9) 10/19/18 14:05 RDW 13.2 % (11.9-15.9) 10/19/18 14:05 Plt Count 216 K/MM3 (134-434) 10/19/18 14:05 MPV 8.7 fl (7.5-11.1) 10/19/18 14:05 Sodium 139 mmol/L (136-145) 10/19/18 14:05 Potassium 3.8 mmol/L (3.5-5.1) 10/19/18 14:05 Chloride 104 mmol/L (98-107) 10/19/18 14:05 Carbon Dioxide 31 mmol/L (21-32) 10/19/18 14:05 Anion Gap 4 MMOL/L (8-16) L 10/19/18 14:05 BUN 10.3 mg/dL (7-18) 10/19/18 14:05 Creatinine 0.9 mg/dL (0.55-1.3) 10/19/18 14:05 Est GFR (CKD-EPI)AfAm 111.05 10/19/18 14:05 Est GFR (CKD-EPI)NonAf 95.81 10/19/18 14:05 Random Glucose 78 mg/dL (74-106) 10/19/18 14:05 Calcium 9.0 mg/dL (8.5-10.1) 10/19/18 14:05 Total Bilirubin 0.2 mg/dL (0.2-1) 10/19/18 14:05 AST 10 U/L (15-37) L 10/19/18 14:05 ALT 20 U/L (13-61) 10/19/18 14:05 Alkaline Phosphatase 114 U/L (45-117) 10/19/18 14:05 Total Protein 7.3 g/dl (6.4-8.2) 10/19/18 14:05 Albumin 3.6 g/dl (3.4-5.0) 10/19/18 14:05 RPR Titer Nonreactive (NONREACTIVE) 10/19/18 14:05 lab noted Assessment: 10/20/18 11:11 alcohol and opiate withdrawal sx Plan: continue alcohol and opiate detox
[2018-10-20] MEDS: THIAMINE HCL 100 MG TABLET (FP) PO SCH (22:08)
[2018-10-21] MEDS: MELATONIN 5 MG TABLETS PO PRN ×2 (02:37→22:02)
[2018-10-21] MEDS: chlordiazePOXIDE HCL 25 MG CAPSULE PO SCH ×4 (05:24→22:02)
--- NOTE | 2018-10-21 08:33 | PN ---
[facility] CIWA - CIWA Score Nausea/Vomitin-Mild Nausea/No Vomiting Muscle Tremors: 1-None Visible, but [place] Anxiety: 3 Agitation: 2 Paroxysmal Sweats: 1-Minimal Palms Moist Orientation: 0-Oriented Tacttile Disturbances: 1-Very Mild Itch/Numbness Auditory Disturbances: 0-None Visual Disturbances: 0-None Headache: 1-Very Mild CIWA-Ar Total Score: 10 [facility] COWS - Scale Resting Pulse: 1= [place] 81-100 Sweatin= Chills/Flushing Restless Observation: 0= Sits Still Pupil Size: 0= Normal to Room Light Bone or Joint Aches: 1= Mild Discomfort Runny Nose/ Eye Tearin= Nasal Congestion GI Upset > 30mins: 1= Stomach Cramp Tremor Observation of Outstretched Hands: 2= Slight Tremor Visible Yawning Observation: 1= 1-2x During Session Anxiety or Irritability: 2=Irritable/Anxious Goose Flesh Skin: 0=Smooth Skin COWS Score: 10 S Progress Note (SOAP) Subjective: trouble sleep at night irritable tremor body aches Objective: 10/21/18 11:05 Vital Signs Temperature 98.1 F 10/21/18 09:08 Pulse Rate 84 10/21/18 09:08 Respiratory Rate 18 10/21/18 09:08 Blood Pressure 102/68 10/21/18 09:08 O2 Sat by Pulse Oximetry (%) Laboratory Last Values WBC 4.5 K/mm3 (4.0-10.0) 10/19/18 14:05 RBC 4.19 M/mm3 (4.00-5.60) 10/19/18 14:05 Hgb 12.9 GM/dL (11.7-16.9) 10/19/18 14:05 Hct 38.3 % (35.4-49) 10/19/18 14:05 MCV 91.4 fl (80-96) 10/19/18 14:05 MCH 30.8 pg (25.7-33.7) 10/19/18 14:05 MCHC 33.7 g/dl (32.0-35.9) 10/19/18 14:05 RDW 13.2 % (11.9-15.9) 10/19/18 14:05 Plt Count 216 K/MM3 (134-434) 10/19/18 14:05 MPV 8.7 fl (7.5-11.1) 10/19/18 14:05 Sodium 139 mmol/L (136-145) 10/19/18 14:05 Potassium 3.8 mmol/L (3.5-5.1) 10/19/18 14:05 Chloride 104 mmol/L (98-107) 10/19/18 14:05 Carbon Dioxide 31 mmol/L (21-32) 10/19/18 14:05 Anion Gap 4 MMOL/L (8-16) L 10/19/18 14:05 BUN 10.3 mg/dL (7-18) 10/19/18 14:05 Creatinine 0.9 mg/dL (0.55-1.3) 10/19/18 14:05 Est GFR (CKD-EPI)AfAm 111.05 10/19/18 14:05 Est GFR (CKD-EPI)NonAf 95.81 10/19/18 14:05 Random Glucose 78 mg/dL (74-106) 10/19/18 14:05 Calcium 9.0 mg/dL (8.5-10.1) 10/19/18 14:05 Total Bilirubin 0.2 mg/dL (0.2-1) 10/19/18 14:05 AST 10 U/L (15-37) L 10/19/18 14:05 ALT 20 U/L (13-61) 10/19/18 14:05 Alkaline Phosphatase 114 U/L (45-117) 10/19/18 14:05 Total Protein 7.3 g/dl (6.4-8.2) 10/19/18 14:05 Albumin 3.6 g/dl (3.4-5.0) 10/19/18 14:05 RPR Titer Nonreactive (NONREACTIVE) 10/19/18 14:05 lab noted Assessment: 10/21/18 11:05 alcohol and opiate withdrawal sx 10/21/18 11:06 insomnia Plan: continue alcohol and opiate detox seroquel 50 mg po hs x 1
[2018-10-21] MEDS ORDERED: METHADONE HCL 10 MG TABLET (FOR DETOX USE ONLY) PO ONE (10:00)
[2018-10-21] MEDS: PRENATAL VITAMINS W/ FOLIC ACID TABLET (FP) PO SCH (10:17)
[2018-10-21] MEDS ORDERED: QUEtiapine FUMARATE 50 MG TABLET PO SCH (22:00)
[2018-10-21] MEDS: THIAMINE HCL 100 MG TABLET (FP) PO SCH (22:02)
[2018-10-22] MEDS ORDERED: chlordiazePOXIDE HCL 10 MG CAPSULE PO PRN
[2018-10-22] MEDS: chlordiazePOXIDE HCL 10 MG CAPSULE PO SCH ×4 (05:58→21:59)
[2018-10-22] MEDS ORDERED: METHADONE HCL 5 MG TABLET (FOR DETOX USE ONLY) ONE (09:53)
[2018-10-22] MEDS ORDERED: METHADONE HCL 10 MG TABLET (FOR DETOX USE ONLY) ONE (09:53)
[2018-10-22] MEDS ORDERED: METHADONE (DETOX) 10 MG, METHADONE (DETOX) 5 MG PO ONE (10:00)
[2018-10-22] MEDS: PRENATAL VITAMINS W/ FOLIC ACID TABLET (FP) PO SCH (10:08)
--- NOTE | 2018-10-22 13:12 | PN ---
S CIWA - CIWA Score Nausea/Vomitin-Mild Nausea/No Vomiting Muscle Tremors: 2 Anxiety: 2 Agitation: 3 Paroxysmal Sweats: No Perspiration Orientation: 0-Oriented Tacttile Disturbances: 0-None Auditory Disturbances: 0-None Visual Disturbances: 0-None Headache: 0-None Present CIWA-Ar Total Score: 8 [facility] COWS - Scale Resting Pulse: 1= [place] 81-100 Sweatin= Chills/Flushing Restless Observation: 0= Sits Still Pupil Size: 0= Normal to Room Light Bone or Joint Aches: 1= Mild Discomfort Runny Nose/ Eye Tearin= None GI Upset > 30mins: 2= Nausea/Diarrhea Tremor Observation of Outstretched Hands: 1= Tremor [place], Not Seen Yawning Observation: 1= 1-2x During Session Anxiety or Irritability: 1=Feels Anxious/Irritable Goose Flesh Skin: 0=Smooth Skin COWS Score: 8 S Progress Note (SOAP) Subjective: 57 years old male admitte don 10/19/18 for alcohol and opiate withdrawal sx denies medical issues but PTSD with nightmare discuss medication assisted treatment program encourage [facility] for possible suboxone maintenance program Objective: 10/22/18 13:13 Vital Signs Temperature 98.5 F 10/22/18 09:13 Pulse Rate 86 10/22/18 09:13 Respiratory Rate 18 10/22/18 09:13 Blood Pressure 113/72 10/22/18 09:13 O2 Sat by Pulse Oximetry (%) Laboratory Last Values WBC 4.5 K/mm3 (4.0-10.0) 10/19/18 14:05 RBC 4.19 M/mm3 (4.00-5.60) 10/19/18 14:05 Hgb 12.9 GM/dL (11.7-16.9) 10/19/18 14:05 Hct 38.3 % (35.4-49) 10/19/18 14:05 MCV 91.4 fl (80-96) 10/19/18 14:05 MCH 30.8 pg (25.7-33.7) 10/19/18 14:05 MCHC 33.7 g/dl (32.0-35.9) 10/19/18 14:05 RDW 13.2 % (11.9-15.9) 10/19/18 14:05 Plt Count 216 K/MM3 (134-434) 10/19/18 14:05 MPV 8.7 fl (7.5-11.1) 10/19/18 14:05 Sodium 139 mmol/L (136-145) 10/19/18 14:05 Potassium 3.8 mmol/L (3.5-5.1) 10/19/18 14:05 Chloride 104 mmol/L (98-107) 10/19/18 14:05 Carbon Dioxide 31 mmol/L (21-32) 10/19/18 14:05 Anion Gap 4 MMOL/L (8-16) L 10/19/18 14:05 BUN 10.3 mg/dL (7-18) 10/19/18 14:05 Creatinine 0.9 mg/dL (0.55-1.3) 10/19/18 14:05 Est GFR (CKD-EPI)AfAm 111.05 10/19/18 14:05 Est GFR (CKD-EPI)NonAf 95.81 10/19/18 14:05 Random Glucose 78 mg/dL (74-106) 10/19/18 14:05 Calcium 9.0 mg/dL (8.5-10.1) 10/19/18 14:05 Total Bilirubin 0.2 mg/dL (0.2-1) 10/19/18 14:05 AST 10 U/L (15-37) L 10/19/18 14:05 ALT 20 U/L (13-61) 10/19/18 14:05 Alkaline Phosphatase 114 U/L (45-117) 10/19/18 14:05 Total Protein 7.3 g/dl (6.4-8.2) 10/19/18 14:05 Albumin 3.6 g/dl (3.4-5.0) 10/19/18 14:05 RPR Titer Nonreactive (NONREACTIVE) 10/19/18 14:05 lab noted Assessment: 10/22/18 13:13 alcohol and opiate withdrawal sx Plan: continue alcohol and opiate detox
[2018-10-22] MEDS: THIAMINE HCL 100 MG TABLET (FP) PO SCH (21:59)
[2018-10-22] MEDS: MELATONIN 5 MG TABLETS PO PRN (21:59)
[2018-10-23] MEDS: chlordiazePOXIDE HCL 10 MG CAPSULE PO SCH ×2 (05:09→16:39)
[2018-10-23] MEDS: PRENATAL VITAMINS W/ FOLIC ACID TABLET (FP) PO SCH (09:17)
[2018-10-23] MEDS ORDERED: METHADONE HCL 10 MG TABLET (FOR DETOX USE ONLY) PO ONE (10:00)
--- NOTE | 2018-10-23 13:42 | PN ---
[facility] CIWA - CIWA Score Nausea/Vomitin-Mild Nausea/No Vomiting Muscle Tremors: 2 Anxiety: 2 Agitation: 2 Paroxysmal Sweats: No Perspiration Orientation: 0-Oriented Tacttile Disturbances: 0-None Auditory Disturbances: 0-None Visual Disturbances: 0-None Headache: 2-Mild CIWA-Ar Total Score: 9 [facility]HS COWS - Scale Resting Pulse: 0= [place] 80 or Below Sweatin= No chills or Flushing Restless Observation: 0= Sits Still Pupil Size: 1= Pupils >than Normal Bone or Joint Aches: 1= Mild Discomfort Runny Nose/ Eye Tearin= Nasal Congestion GI Upset > 30mins: 1= Stomach Cramp Tremor Observation of Outstretched Hands: 1= Tremor [place], Not Seen Yawning Observation: 0= None Anxiety or Irritability: 2=Irritable/Anxious Goose Flesh Skin: 0=Smooth Skin COWS Score: 7 [facility] Progress Note (SOAP) Subjective: alert,irritable,anxious,interrupted sleep,pain in the body Objective: 10/23/18 13:40 Vital Signs Temperature 99.1 F 10/23/18 13:37 Pulse Rate 81 10/23/18 13:37 Respiratory Rate 18 10/23/18 13:37 Blood Pressure 93/67 10/23/18 13:37 O2 Sat by Pulse Oximetry (%) Assessment: 10/23/18 13:41 withdrawal symptom Plan: continue detox with methadone and librium regimen,discharge in am
[2018-10-23] MEDS: THIAMINE HCL 100 MG TABLET (FP) PO SCH (21:59)
[2018-10-23] MEDS: MELATONIN 5 MG TABLETS PO PRN (21:59)
[2018-10-24] MEDS ORDERED: chlordiazePOXIDE HCL 10 MG CAPSULE PO ONE (05:00)
[2018-10-24] MEDS ORDERED: METHADONE HCL 5 MG TABLET (FOR DETOX USE ONLY) PO ONE (06:00)
[2018-10-24 06:47] VITALS: BP 98/55; PULSE 71; TEMP 97.7
--- NOTE | 2018-10-24 19:39 | DS ---
[facility] Detox Discharge Summary Admission Date: 10/19/18 Discharge Date: 10/24/18 - History Present History: Alcohol Dependence, Cocaine Dependence, Opioid Dependence Additional Comments: PATIENT GOING TO [facility] ([place], [place]) FOR AFTERCARE. PATIENT WAS DISCHARGED FROM DETOX UNIT IN STABLE MEDICAL CONDITION. Pertinent Past History: Hep C, Nicotine Dependence, History Of PPD Positive. - Physical Exam Results Vital Signs: Vital Signs Temperature 97.7 F 10/24/18 06:46 Pulse Rate 71 10/24/18 06:46 Respiratory Rate 18 10/24/18 06:46 Blood Pressure 98/55 L 10/24/18 06:46 O2 Sat by Pulse Oximetry (%) Pertinent Admission Physical Exam Findings: WITHDRAWAL SYMPTOMS. Laboratory Tests 10/19/18 10/19/18 10/19/18 14:05 14:05 14:05 WBC 4.5 RBC 4.19 Hgb 12.9 Hct 38.3 MCV 91.4 MCH 30.8 MCHC 33.7 RDW 13.2 Plt Count 216 MPV 8.7 Sodium 139 Potassium 3.8 Chloride 104 Carbon Dioxide 31 Anion Gap 4 L BUN 10.3 Creatinine 0.9 Est GFR (CKD-EPI)AfAm 111.05 Est GFR (CKD-EPI)NonAf 95.81 Random Glucose 78 Calcium 9.0 Total Bilirubin 0.2 AST 10 L ALT 20 Alkaline Phosphatase 114 Total Protein 7.3 Albumin 3.6 RPR Titer Nonreactive LABS NOTED. - Treatment Hospital Course: Detox Protocol Followed, Detoxed Safely, Responded well, Discharged Condition Good, Rehab Referral Accepted Patient has Accepted a Rehab Referral to: [facility]. - Medication Discharge Medications: Ambulatory Orders Prazosin HCl [Minipress -] 3 mg PO HS #90 capsule 02/12/18 Sertraline HCl [Zoloft -] 50 mg PO DAILY #30 tablet 02/12/18 - Diagnosis (1) Alcohol use disorder Status: Acute (2) Heroin abuse Status: Acute (3) Cocaine dependence Status: Chronic Qualifiers: Substance use status: uncomplicated Qualified Code(s): F14.20 - Cocaine dependence, uncomplicated (4) Nicotine dependence Status: Chronic Qualifiers: Nicotine product type: cigarettes Substance use status: uncomplicated Qualified Code(s): F17.210 - Nicotine dependence, cigarettes, uncomplicated (5) PPD positive Status: Chronic - AMA Did Patient Leave Against Medical Advice: No
== END 2018-10-24 10:35 | disposition home or self-care (01) | DRG 773 ==
LOC: YASAS 10:09 → Y3N 14:07
PROVIDERS: ADMIT Surgery; ATTEND Surgery
PROC: HZ2ZZZZ Detoxification Services for Substance Abuse Treatment (ICD-10-PCS; principal; 2018-10-19)
DX: F11.23 Opioid dependence with withdrawal (principal); F10.230 Alcohol dependence with withdrawal, uncomplicated; F14.20 Cocaine dependence, uncomplicated; F17.210 Nicotine dependence, cigarettes, uncomplicated; R76.11 Nonspecific reaction to tuberculin skin test without active tuberculosis; Z86.19 Personal history of other infectious and parasitic diseases
CPT/HCPCS: 36415; 71046-TC-FY; 80053; 85027; 86593

== ENCOUNTER 2019-01-27 11:06 | Inpatient (IN) | payer OTHER ==
[2019-01-27 11:51] VITALS: BMI 26.6
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
[2019-01-27] MEDS ORDERED: METHOCARBAMOL 500 MG TABLET PO PRN (13:03)
[2019-01-27] MEDS ORDERED: chlordiazePOXIDE HCL 25 MG CAPSULE PO PRN (13:03)
[2019-01-27] MEDS ORDERED: IBUPROFEN 400 MG TABLET (FP) PO PRN (13:03)
[2019-01-27] MEDS ORDERED: ACETAMINOPHEN 325 MG TABLET (FP) PO PRN ×2 (13:03)
[2019-01-27] MEDS ORDERED: MAGNESIUM CITRATE 300 ML BOTTLE PO PRN (13:03)
[2019-01-27] MEDS ORDERED: MAGNESIUM HYDROX 2400MG/30ML ORAL SUSPENSION 30 ML CUP PO PRN (13:03)
[2019-01-27] MEDS ORDERED: MAG HYDROX/AL HYDROX/SIMETH 30 ML UNIT-DOSE CUP PO PRN (13:03)
[2019-01-27] MEDS ORDERED: MENTHOL/PHENOL 1 EACH UD MM PRN (13:03)
[2019-01-27] MEDS ORDERED: BISMUTH SUBSALICYLATE 262 MG/15 ML BTL PO PRN (13:03)
[2019-01-27] MEDS ORDERED: MELATONIN 5 MG TABLETS PO PRN (13:03)
[2019-01-27] MEDS ORDERED: hydrOXYzine PAMOATE 25 MG CAPSULE (FP) PO PRN (13:03)
[2019-01-27] MEDS ORDERED: cloNIDine HCL 0.1 MG TABLET PO PRN (13:14)
[2019-01-27] MEDS ORDERED: METHADONE HCL 10 MG TABLET (FOR DETOX USE ONLY) PO ONE (14:00)
[2019-01-27 17:02] LABS: HEMATOCRIT 38.9 % (35.4-49); HEMOGLOBIN 13.2 GM/dL (11.7-16.9); MCH 31.4 pg (25.7-33.7); MCHC 33.8 g/dl (32.0-35.9); MEAN CELL VOLUME 92.6 fl (80-96); MEAN PLT VOLUME 8.2 fl (7.5-11.1); PLATELET COUNT 231 K/MM3 (134-434); RDW 13.5 % (11.9-15.9); WHITE BLOOD COUNT 5.1 K/mm3 (4.0-10.0)
--- NOTE | 2019-01-27 17:21 | CONSULT ---
[facility] Psychiatric Consult - Data Date of interview: 01/27/19 Admission source: [facility] Identifying data: Patient refused psychiatric consultation. Patient stated to production underwriter," I havent taken medications in one year. I'm good. I dont want to hurt anyone or myself. Thank you." Psychiatric consultation refused.
[2019-01-27 17:22] LABS: ALBUMIN 3.5 g/dl (3.4-5.0); BILIRUBIN,TOTAL 0.2 mg/dL (0.2-1); CALCIUM 8.7 mg/dL (8.5-10.1); CREATININE 0.9 mg/dL (0.55-1.3); TOT PROT 6.8 g/dl (6.4-8.2)
[2019-01-27] MEDS: chlordiazePOXIDE HCL 25 MG CAPSULE PO SCH ×2 (17:31→22:24)
[2019-01-27] MEDS: THIAMINE HCL 100 MG TABLET (FP) PO SCH (21:55)
[2019-01-28] MEDS: chlordiazePOXIDE HCL 25 MG CAPSULE PO SCH ×4 (06:06→22:38)
[2019-01-28] MEDS ORDERED: METHADONE HCL 5 MG TABLET (FOR DETOX USE ONLY) ONE (09:32)
[2019-01-28] MEDS ORDERED: METHADONE HCL 10 MG TABLET (FOR DETOX USE ONLY) ONE (09:33)
[2019-01-28] MEDS ORDERED: METHADONE (DETOX) 20 MG, METHADONE (DETOX) 5 MG PO ONE (10:00)
[2019-01-28] MEDS: PRENATAL VITAMINS W/ FOLIC ACID TABLET (FP) PO SCH (11:04)
[2019-01-28] MEDS: NICOTINE 7 MG/24 HOURS TOPICAL PATCH TD SCH (11:04)
--- NOTE | 2019-01-28 12:22 | PN ---
[facility] CIWA - CIWA Score Nausea/Vomitin-No Nausea/No Vomiting Muscle Tremors: 3 Anxiety: 3 Agitation: 3 Paroxysmal Sweats: 2 Orientation: 0-Oriented Tacttile Disturbances: 0-None Auditory Disturbances: 0-None Visual Disturbances: 0-None Headache: 0-None Present CIWA-Ar Total Score: 11 S COWS - Scale Resting Pulse: 0= [place] 80 or Below Sweatin= Chills/Flushing Restless Observation: 1= Difficult to Sit Still Pupil Size: 0= Normal to Room Light Bone or Joint Aches: 1= Mild Discomfort Runny Nose/ Eye Tearin= Nasal Congestion GI Upset > 30mins: 0= None Tremor Observation of Outstretched Hands: 1= Tremor [place], Not Seen Yawning Observation: 1= 1-2x During Session Anxiety or Irritability: 1=Feels Anxious/Irritable Goose Flesh Skin: 3=Piloerection COWS Score: 10 [facility] Progress Note (SOAP) Subjective: agitation sweats shakes body aches poor appetite interrupted sleep Objective: 01/28/19 12:21 Vital Signs Temperature 98.1 F 01/28/19 10:02 Pulse Rate 71 01/28/19 10:02 Respiratory Rate 18 01/28/19 10:02 Blood Pressure 91/52 L 01/28/19 10:02 O2 Sat by Pulse Oximetry (%) Laboratory Tests 01/27/19 01/27/19 13:15 13:15 WBC 5.1 RBC 4.20 Hgb 13.2 Hct 38.9 MCV 92.6 MCH 31.4 MCHC 33.8 RDW 13.5 Plt Count 231 MPV 8.2 Sodium 137 Potassium 4.0 Chloride 101 Carbon Dioxide 30 Anion Gap 6 L BUN 15.0 Creatinine 0.9 Est GFR (CKD-EPI)AfAm 110.27 Est GFR (CKD-EPI)NonAf 95.14 Random Glucose 62 L Calcium 8.7 Total Bilirubin 0.2 AST 12 L ALT 17 Alkaline Phosphatase 114 Total Protein 6.8 Albumin 3.5 labs noted aaox3 ambulating no acute distress Assessment: 01/28/19 12:22 withdrawals Plan: continue detox increase fluids ensure plus 120ml po bid
[2019-01-28] MEDS: THIAMINE HCL 100 MG TABLET (FP) PO SCH (22:38)
[2019-01-29] MEDS: chlordiazePOXIDE HCL 25 MG CAPSULE PO SCH ×4 (06:16→22:20)
[2019-01-29] MEDS ORDERED: METHADONE HCL 10 MG TABLET (FOR DETOX USE ONLY) PO ONE (10:00)
[2019-01-29] MEDS: PRENATAL VITAMINS W/ FOLIC ACID TABLET (FP) PO SCH (10:43)
[2019-01-29] MEDS: NICOTINE 7 MG/24 HOURS TOPICAL PATCH TD SCH (10:43)
--- NOTE | 2019-01-29 15:24 | PN ---
[facility] CIWA - CIWA Score Nausea/Vomitin-No Nausea/No Vomiting Muscle Tremors: 2 Anxiety: 2 Agitation: 2 Paroxysmal Sweats: 2 Orientation: 0-Oriented Tacttile Disturbances: 0-None Auditory Disturbances: 0-None Visual Disturbances: 0-None Headache: 0-None Present CIWA-Ar Total Score: 8 [facility] COWS - Scale Resting Pulse: 1= [place] 81-100 Sweatin= Chills/Flushing Restless Observation: 1= Difficult to Sit Still Pupil Size: 0= Normal to Room Light Bone or Joint Aches: 1= Mild Discomfort Runny Nose/ Eye Tearin= Nasal Congestion GI Upset > 30mins: 0= None Tremor Observation of Outstretched Hands: 1= Tremor [place], Not Seen Yawning Observation: 1= 1-2x During Session Anxiety or Irritability: 1=Feels Anxious/Irritable Goose Flesh Skin: 0=Smooth Skin COWS Score: 8 [facility] Progress Note (SOAP) Subjective: agitation sweats shakes irritable Objective: 01/29/19 15:23 Vital Signs Temperature 98.6 F 01/29/19 14:27 Pulse Rate 85 01/29/19 14:27 Respiratory Rate 20 01/29/19 14:27 Blood Pressure 134/89 01/29/19 14:27 O2 Sat by Pulse Oximetry (%) aaox3 ambulating no acute distress Assessment: 01/29/19 15:23 withdrawals Plan: continue detox increase fluids
[2019-01-29] MEDS: THIAMINE HCL 100 MG TABLET (FP) PO SCH (22:20)
[2019-01-30] MEDS ORDERED: chlordiazePOXIDE HCL 10 MG CAPSULE PO PRN
[2019-01-30] MEDS: chlordiazePOXIDE HCL 10 MG CAPSULE PO SCH ×4 (06:00→23:05)
[2019-01-30] MEDS ORDERED: METHADONE HCL 10 MG TABLET (FOR DETOX USE ONLY) ONE (09:05)
[2019-01-30] MEDS ORDERED: METHADONE HCL 5 MG TABLET (FOR DETOX USE ONLY) ONE (09:05)
[2019-01-30] MEDS ORDERED: METHADONE (DETOX) 10 MG, METHADONE (DETOX) 5 MG PO ONE (10:00)
[2019-01-30] MEDS: PRENATAL VITAMINS W/ FOLIC ACID TABLET (FP) PO SCH (10:24)
[2019-01-30] MEDS: NICOTINE 7 MG/24 HOURS TOPICAL PATCH TD SCH (10:25)
--- NOTE | 2019-01-30 12:55 | PN ---
S CIWA - CIWA Score Nausea/Vomitin-No Nausea/No Vomiting Muscle Tremors: None Anxiety: 3 Agitation: 0-Normal Activity Paroxysmal Sweats: 3 Orientation: 0-Oriented Tacttile Disturbances: 0-None Auditory Disturbances: 0-None Visual Disturbances: 0-None Headache: 1-Very Mild CIWA-Ar Total Score: 7 S COWS - Scale Resting Pulse: 0= [place] 80 or Below Sweatin= Chills/Flushing Restless Observation: 1= Difficult to Sit Still Pupil Size: 0= Normal to Room Light Bone or Joint Aches: 1= Mild Discomfort Runny Nose/ Eye Tearin= None GI Upset > 30mins: 0= None Tremor Observation of Outstretched Hands: 0= None Yawning Observation: 1= 1-2x During Session Anxiety or Irritability: 2=Irritable/Anxious Goose Flesh Skin: 0=Smooth Skin COWS Score: 6 S Progress Note (SOAP) Subjective: c/o mild sweats, anxiety, irritability, and headache. Objective: 01/30/19 12:54 Vital Signs 01/30/19 01/30/19 01/30/19 06:00 09:49 12:39 Temperature 97.7 F 98.1 F 98.2 F Pulse Rate 78 89 98 H Respiratory 18 18 18 Rate Blood Pressure 103/58 L 131/74 109/78 Lab Results WBC 5.1 K/mm3 (4.0-10.0) 01/27/19 13:15 RBC 4.20 M/mm3 (4.00-5.60) 01/27/19 13:15 Hgb 13.2 GM/dL (11.7-16.9) 01/27/19 13:15 Hct 38.9 % (35.4-49) 01/27/19 13:15 MCV 92.6 fl (80-96) 01/27/19 13:15 MCHC 33.8 g/dl (32.0-35.9) 01/27/19 13:15 RDW 13.5 % (11.9-15.9) 01/27/19 13:15 Plt Count 231 K/MM3 (134-434) 01/27/19 13:15 Sodium 137 mmol/L (136-145) 01/27/19 13:15 Potassium 4.0 mmol/L (3.5-5.1) 01/27/19 13:15 Chloride 101 mmol/L (98-107) 01/27/19 13:15 Carbon Dioxide 30 mmol/L (21-32) 01/27/19 13:15 Anion Gap 6 MMOL/L (8-16) L 01/27/19 13:15 BUN 15.0 mg/dL (7-18) 01/27/19 13:15 Creatinine 0.9 mg/dL (0.55-1.3) 01/27/19 13:15 Random Glucose 62 mg/dL (74-106) L 01/27/19 13:15 Calcium 8.7 mg/dL (8.5-10.1) 01/27/19 13:15 Laboratory Last Values WBC 5.1 K/mm3 (4.0-10.0) 01/27/19 13:15 RBC 4.20 M/mm3 (4.00-5.60) 01/27/19 13:15 Hgb 13.2 GM/dL (11.7-16.9) 01/27/19 13:15 Hct 38.9 % (35.4-49) 01/27/19 13:15 MCV 92.6 fl (80-96) 01/27/19 13:15 MCH 31.4 pg (25.7-33.7) 01/27/19 13:15 MCHC 33.8 g/dl (32.0-35.9) 01/27/19 13:15 RDW 13.5 % (11.9-15.9) 01/27/19 13:15 Plt Count 231 K/MM3 (134-434) 01/27/19 13:15 MPV 8.2 fl (7.5-11.1) 01/27/19 13:15 Sodium 137 mmol/L (136-145) 01/27/19 13:15 Potassium 4.0 mmol/L (3.5-5.1) 01/27/19 13:15 Chloride 101 mmol/L (98-107) 01/27/19 13:15 Carbon Dioxide 30 mmol/L (21-32) 01/27/19 13:15 Anion Gap 6 MMOL/L (8-16) L 01/27/19 13:15 BUN 15.0 mg/dL (7-18) 01/27/19 13:15 Creatinine 0.9 mg/dL (0.55-1.3) 01/27/19 13:15 Est GFR (CKD-EPI)AfAm 110.27 01/27/19 13:15 Est GFR (CKD-EPI)NonAf 95.14 01/27/19 13:15 Random Glucose 62 mg/dL (74-106) L 01/27/19 13:15 Calcium 8.7 mg/dL (8.5-10.1) 01/27/19 13:15 Total Bilirubin 0.2 mg/dL (0.2-1) 01/27/19 13:15 AST 12 U/L (15-37) L 01/27/19 13:15 ALT 17 U/L (13-61) 01/27/19 13:15 Alkaline Phosphatase 114 U/L (45-117) 01/27/19 13:15 Total Protein 6.8 g/dl (6.4-8.2) 01/27/19 13:15 Albumin 3.5 g/dl (3.4-5.0) 01/27/19 13:15 RPR Titer Nonreactive (NONREACTIVE) 01/27/19 13:15 Labs noted. Assessment: 01/30/19 12:55 AOX3, in no acute respiratory distress. Full ROM, ambulating in the unit. Withdrawal symptoms. Plan: continue detox.
[2019-01-30] MEDS: THIAMINE HCL 100 MG TABLET (FP) PO SCH (23:05)
[2019-01-31] MEDS: chlordiazePOXIDE HCL 10 MG CAPSULE PO SCH ×2 (06:06→17:49)
[2019-01-31] MEDS ORDERED: METHADONE HCL 10 MG TABLET (FOR DETOX USE ONLY) PO ONE (10:00)
[2019-01-31] MEDS: PRENATAL VITAMINS W/ FOLIC ACID TABLET (FP) PO SCH (10:06)
[2019-01-31] MEDS: NICOTINE 7 MG/24 HOURS TOPICAL PATCH TD SCH (10:06)
--- NOTE | 2019-01-31 17:10 | PN ---
[facility] CIWA - CIWA Score Nausea/Vomitin-No Nausea/No Vomiting Muscle Tremors: None Anxiety: 2 Agitation: 2 Paroxysmal Sweats: 2 Orientation: 0-Oriented Tacttile Disturbances: 0-None Auditory Disturbances: 0-None Visual Disturbances: 0-None Headache: 0-None Present CIWA-Ar Total Score: 6 S COWS - Scale Resting Pulse: 2= [place] 101-120 Sweatin= Chills/Flushing Restless Observation: 0= Sits Still Pupil Size: 0= Normal to Room Light Bone or Joint Aches: 1= Mild Discomfort Runny Nose/ Eye Tearin= None GI Upset > 30mins: 1= Stomach Cramp Tremor Observation of Outstretched Hands: 0= None Yawning Observation: 0= None Anxiety or Irritability: 1=Feels Anxious/Irritable Goose Flesh Skin: 0=Smooth Skin COWS Score: 6 [facility] Progress Note (SOAP) Subjective: Stomachache, a little dizziness, sweating, tremor, interrupted sleep; patient is anxious Objective: 01/31/19 17:06 Last Vital Signs Temp Pulse Resp BP Pulse Ox 98.6 F 113 H 18 123/80 01/31/19 14:43 01/31/19 14:43 01/31/19 14:43 01/31/19 14:43 Tachycardic most likely due to anxiety Laboratory Tests 01/27/19 01/27/19 01/27/19 13:15 13:15 13:15 WBC 5.1 RBC 4.20 Hgb 13.2 Hct 38.9 MCV 92.6 MCH 31.4 MCHC 33.8 RDW 13.5 Plt Count 231 MPV 8.2 Sodium 137 Potassium 4.0 Chloride 101 Carbon Dioxide 30 Anion Gap 6 L BUN 15.0 Creatinine 0.9 Est GFR (CKD-EPI)AfAm 110.27 Est GFR (CKD-EPI)NonAf 95.14 Random Glucose 62 L Calcium 8.7 Total Bilirubin 0.2 AST 12 L ALT 17 Alkaline Phosphatase 114 Total Protein 6.8 Albumin 3.5 RPR Titer Nonreactive Labs reviewed Assessment: 01/31/19 17:07 Withdrawal sxs Noted with tachycardia, mild Plan: Continue detox Encouraged PO water intake Scheduled for discharge tomorrow to [facility] if bed available Mild tachycardia: encouraged relaxation techniques such as deep breathing exercises, encourage vistaril prn.
[2019-01-31] MEDS: THIAMINE HCL 100 MG TABLET (FP) PO SCH (22:11)
[2019-02-01] MEDS ORDERED: chlordiazePOXIDE HCL 10 MG CAPSULE PO ONE (05:00)
[2019-02-01] MEDS ORDERED: METHADONE HCL 5 MG TABLET (FOR DETOX USE ONLY) PO ONE (06:00)
--- NOTE | 2019-02-01 10:29 | DS ---
[facility] Detox Discharge Summary Admission Date: 01/27/19 Discharge Date: 02/01/19 - History Present History: Alcohol Dependence, Opioid Dependence - Physical Exam Results Vital Signs: Vital Signs Temperature 99.0 F 02/01/19 09:44 Pulse Rate 100 H 02/01/19 09:44 Respiratory Rate 18 02/01/19 09:44 Blood Pressure 107/69 02/01/19 09:44 O2 Sat by Pulse Oximetry (%) Pertinent Admission Physical Exam Findings: pt withdrawals sx Vital Signs Temperature 99.0 F 02/01/19 09:44 Pulse Rate 100 H 02/01/19 09:44 Respiratory Rate 18 02/01/19 09:44 Blood Pressure 107/69 02/01/19 09:44 O2 Sat by Pulse Oximetry (%) Laboratory Tests 01/27/19 01/27/19 01/27/19 13:15 13:15 13:15 WBC 5.1 RBC 4.20 Hgb 13.2 Hct 38.9 MCV 92.6 MCH 31.4 MCHC 33.8 RDW 13.5 Plt Count 231 MPV 8.2 Sodium 137 Potassium 4.0 Chloride 101 Carbon Dioxide 30 Anion Gap 6 L BUN 15.0 Creatinine 0.9 Est GFR (CKD-EPI)AfAm 110.27 Est GFR (CKD-EPI)NonAf 95.14 Random Glucose 62 L Calcium 8.7 Total Bilirubin 0.2 AST 12 L ALT 17 Alkaline Phosphatase 114 Total Protein 6.8 Albumin 3.5 RPR Titer Nonreactive aaox3 ambulating no acute distress no s/s withdrawals - Treatment Hospital Course: Detox Protocol Followed, Detoxed Safely, Responded well, Discharged Condition Good, Rehab Referral Accepted Patient has Accepted a Rehab Referral to: pt referred to inpatient rehab in [facility] - Medication Discharge Medications: Ambulatory Orders NK [No Known Home Medication] 01/27/19 - Diagnosis (1) Alcohol dependence with withdrawal Current Visit: Yes Status: Chronic Qualifiers: Complication of substance-induced condition: uncomplicated Qualified Code(s ): F10.230 - Alcohol dependence with withdrawal, uncomplicated (2) Nicotine dependence Current Visit: Yes Status: Chronic Qualifiers: Nicotine product type: cigarettes Substance use status: uncomplicated Qualified Code(s): F17.210 - Nicotine dependence, cigarettes, uncomplicated (3) Opioid dependence with withdrawal Current Visit: Yes Status: Chronic (4) PTSD (post-traumatic stress disorder) Current Visit: Yes Status: Chronic (5) Substance induced mood disorder Current Visit: No Status: Acute (6) Substance-induced sleep disorder Current Visit: No Status: Acute (7) Cocaine dependence Current Visit: Yes Status: Chronic Qualifiers: Substance use status: uncomplicated Qualified Code(s): F14.20 - Cocaine dependence, uncomplicated (8) Depression Current Visit: No Status: Chronic Qualifiers: Depression Type: unspecified Qualified Code(s): F32.9 - Major depressive disorder, single episode, unspecified (9) MDD (major depressive disorder) Current Visit: No Status: Chronic (10) PPD positive Current Visit: No Status: Chronic - AMA Did Patient Leave Against Medical Advice: No
[2019-02-01] MEDS: PRENATAL VITAMINS W/ FOLIC ACID TABLET (FP) PO SCH (10:49)
[2019-02-01] MEDS: NICOTINE 7 MG/24 HOURS TOPICAL PATCH TD SCH (10:49)
[2019-02-01 13:37] VITALS: BP 107/74; PULSE 88; TEMP 98.2
== END 2019-02-01 14:54 | disposition other institution (70) | DRG 773 ==
LOC: YASAS 11:06 → Y6N 13:20
PROVIDERS: ADMIT Allergy & Immunology; ATTEND Allergy & Immunology
PROC: HZ2ZZZZ Detoxification Services for Substance Abuse Treatment (ICD-10-PCS; principal; 2019-01-27)
DX: F11.23 Opioid dependence with withdrawal (principal); F10.230 Alcohol dependence with withdrawal, uncomplicated; F14.20 Cocaine dependence, uncomplicated; F17.210 Nicotine dependence, cigarettes, uncomplicated; F19.282 Other psychoactive substance dependence with psychoactive substance-induced sleep disorder; F19.24 Other psychoactive substance dependence with psychoactive substance-induced mood disorder; F90.9 Attention-deficit hyperactivity disorder, unspecified type; F32.9 Major depressive disorder, single episode, unspecified; R76.11 Nonspecific reaction to tuberculin skin test without active tuberculosis; R63.4 Abnormal weight loss; Z68.26 Body mass index [BMI] 26.0-26.9, adult; Z86.19 Personal history of other infectious and parasitic diseases; Z87.828 Personal history of other (healed) physical injury and trauma; Z88.8 Allergy status to other drugs, medicaments and biological substances; Z59.0 Homelessness
CPT/HCPCS: 36415; 80053; 85027; 86593

== ENCOUNTER 2019-02-01 15:04 | Inpatient (IN) | payer OTHER ==
--- NOTE | 2019-02-01 15:16 | HP ---
[facility] Rehab Assess/Revision - Admission History Admitted to Rehab [facility] - Findings Detox History & Physical reviewed: Yes Concur with findings: Yes Inpatient Rehab Admission - Rehab Decision to Admit Inpatient rehab admission?: Yes - Initial Determination Are CD services needed?: Yes Free of communicable disease: Yes Not in need of hospitalization: Yes - Rehab Admission Criteria Previous failed treatment: Yes Poor recovery environment: Yes Comorbidities: Yes Lacks judgement: Yes Patient is meeting Inpatient Rehab admission criteria:: Yes
[2019-02-01] MEDS ORDERED: MAGNESIUM HYDROX 2400MG/30ML ORAL SUSPENSION 30 ML CUP PO PRN (15:17)
[2019-02-01] MEDS ORDERED: MENTHOL/PHENOL 1 EACH UD MM PRN (15:17)
[2019-02-01] MEDS ORDERED: guaiFENesin 200 MG/10 ML 10 ML UNIT-DOSE CUPS PO PRN (15:17)
[2019-02-01] MEDS ORDERED: ACETAMINOPHEN 325 MG TABLET (FP) PO PRN (15:17)
[2019-02-01] MEDS ORDERED: P-EPHED 60MG/TRIPROLIDI 2.5MG TABLET PO PRN (15:17)
[2019-02-01] MEDS ORDERED: IBUPROFEN 400 MG TABLET (FP) PO PRN (15:17)
[2019-02-01] MEDS ORDERED: LOPERAMIDE HCL 2 MG CAPSULE PO PRN (15:17)
[2019-02-01] MEDS ORDERED: MAGNESIUM CITRATE 300 ML BOTTLE PO PRN (15:17)
[2019-02-01] MEDS ORDERED: NICOTINE POLACRILEX 4 MG GUM BUC PRN (15:17)
[2019-02-01] MEDS ORDERED: MAG HYDROX/AL HYDROX/SIMETH 30 ML UNIT-DOSE CUP PO PRN (15:17)
[2019-02-01] MEDS: THIAMINE HCL 100 MG TABLET (FP) PO SCH (21:53)
[2019-02-01] MEDS: hydrOXYzine PAMOATE 50 MG CAPSULE (FP) PO PRN (21:55)
[2019-02-01] MEDS: MELATONIN 5 MG TABLETS PO PRN (21:55)
[2019-02-02] MEDS: PRENATAL VITAMINS W/ FOLIC ACID TABLET (FP) PO SCH (10:30)
[2019-02-02] MEDS: NICOTINE 21 MG/24 HOURS TOPICAL PATCH TD SCH (10:31)
[2019-02-02] MEDS ORDERED: PNEUMOC 13-VAL CONJ-DIP CRM/PF 0.5 ML DISP.SYRIN IM ONE (12:00)
[2019-02-02] MEDS ORDERED: PNEUMOCOCCAL 23 VACCINE 0.5 ML VIAL IM ONE ×2 (12:00→22:00)
[2019-02-02] MEDS ORDERED: FLU VACCINE QUAD 60 MCG/0.5 ML (MDV 19-20) IM ONE (12:00)
[2019-02-02] MEDS: THIAMINE HCL 100 MG TABLET (FP) PO SCH (21:52)
[2019-02-02] MEDS: MELATONIN 5 MG TABLETS PO PRN (21:52)
[2019-02-02] MEDS: hydrOXYzine PAMOATE 50 MG CAPSULE (FP) PO PRN (21:53)
[2019-02-03] MEDS: PRENATAL VITAMINS W/ FOLIC ACID TABLET (FP) PO SCH (10:49)
[2019-02-03] MEDS: NICOTINE 21 MG/24 HOURS TOPICAL PATCH TD SCH (10:49)
[2019-02-03] MEDS: THIAMINE HCL 100 MG TABLET (FP) PO SCH (21:49)
[2019-02-03] MEDS: hydrOXYzine PAMOATE 50 MG CAPSULE (FP) PO PRN (21:50)
[2019-02-03] MEDS: MELATONIN 5 MG TABLETS PO PRN (21:50)
[2019-02-04] MEDS: PRENATAL VITAMINS W/ FOLIC ACID TABLET (FP) PO SCH (10:42)
[2019-02-04] MEDS: NICOTINE 21 MG/24 HOURS TOPICAL PATCH TD SCH (10:42)
[2019-02-04] MEDS: THIAMINE HCL 100 MG TABLET (FP) PO SCH (21:45)
[2019-02-04] MEDS: MELATONIN 5 MG TABLETS PO PRN (21:45)
[2019-02-04] MEDS: hydrOXYzine PAMOATE 50 MG CAPSULE (FP) PO PRN (21:46)
[2019-02-05] MEDS: PRENATAL VITAMINS W/ FOLIC ACID TABLET (FP) PO SCH (09:42)
[2019-02-05] MEDS: NICOTINE 21 MG/24 HOURS TOPICAL PATCH TD SCH (10:42)
[2019-02-05] MEDS: LIDOCAINE 5% TOPICAL PATCH TP SCH (16:02)
[2019-02-05] MEDS: METHYL SALICYLATE/MENTHOL OINT 30 GM TUBE TP SCH (21:01)
[2019-02-05] MEDS: LIDOCAINE PATCH REMOVAL MC SCH (21:01)
[2019-02-05] MEDS: MELATONIN 5 MG TABLETS PO PRN (21:01)
[2019-02-05] MEDS: THIAMINE HCL 100 MG TABLET (FP) PO SCH (21:02)
[2019-02-05] MEDS: hydrOXYzine PAMOATE 50 MG CAPSULE (FP) PO PRN (21:02)
[2019-02-06] MEDS: NICOTINE 21 MG/24 HOURS TOPICAL PATCH TD SCH (10:04)
[2019-02-06] MEDS: LIDOCAINE 5% TOPICAL PATCH TP SCH (10:04)
[2019-02-06] MEDS: PRENATAL VITAMINS W/ FOLIC ACID TABLET (FP) PO SCH (10:04)
[2019-02-06] MEDS: MELATONIN 5 MG TABLETS PO PRN (21:43)
[2019-02-06] MEDS: hydrOXYzine PAMOATE 50 MG CAPSULE (FP) PO PRN (21:43)
[2019-02-06] MEDS: THIAMINE HCL 100 MG TABLET (FP) PO SCH (21:43)
[2019-02-06] MEDS: METHYL SALICYLATE/MENTHOL OINT 30 GM TUBE TP SCH (21:43)
[2019-02-06] MEDS: LIDOCAINE PATCH REMOVAL MC SCH (21:58)
[2019-02-07 07:08] VITALS: BP 141/78; PULSE 54; TEMP 97.8
[2019-02-07] MEDS: LIDOCAINE 5% TOPICAL PATCH TP SCH (10:43)
[2019-02-07] MEDS: PRENATAL VITAMINS W/ FOLIC ACID TABLET (FP) PO SCH (10:43)
[2019-02-07] MEDS: NICOTINE 21 MG/24 HOURS TOPICAL PATCH TD SCH (10:43)
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
== END 2019-02-07 16:45 | disposition left against medical advice (07) | DRG 770 ==
LOC: YASAS 15:04 → Y5N 15:07
PROVIDERS: ADMIT Neuromusculoskeletal Medicine & OMM; ATTEND Neuromusculoskeletal Medicine & OMM
PROC: HZ42ZZZ Group Counseling for Substance Abuse Treatment, Cognitive-Behavioral (ICD-10-PCS; principal; 2019-02-01)
DX: F11.20 Opioid dependence, uncomplicated (principal); F10.20 Alcohol dependence, uncomplicated; F14.20 Cocaine dependence, uncomplicated; F17.210 Nicotine dependence, cigarettes, uncomplicated; Z88.8 Allergy status to other drugs, medicaments and biological substances
CPT/HCPCS: 90732; G0008; G0009; Q2036

== ENCOUNTER 2019-12-23 12:51 | Inpatient (IN) | payer OTHER ==
--- NOTE | 2019-12-23 14:16 | BHS.RME ---
Substance Use & Tx History - Substance Use History Alcohol Substance amount: 1-1.5 six packs beer Frequency of use: Daily Substance route: Oral Date of Last Use: 12/22/19 Heroin Substance amount: 8 bags Frequency of use: Daily Substance route: Inhalation (ex: sniffing or snorting) Date of Last Use: 12/23/19 (5am) Cocaine- Powder Substance amount: $10-20 Frequency of use: Daily Substance route: Inhalation (ex: sniffing or snorting) Date of Last Use: 12/22/19 Nicotine Substance amount: 1/2 pack Frequency of use: Daily Substance route: Smoking Date of Last Use: 12/23/19 - Last Treatment Date of last treatment: 02/01-02/07/19 completed rehab and was abstinent until 5 months ago Treatment type: Substance Use Disorder ([place]) Where was last treatment: Rehab Physical/Psych/Mental Status - Behavior General Behavior: Increased activity (restlessness, agitation) Eye Contact: Normal - Cooperativeness Cooperativeness: Cooperative - Thinking Thought Processes: Tight, Logical, Goal Directed Thought content: Future oriented - Physical Health Problems Is patient presently having any pain?: No Does patient presently have any injuries (include location): No Does patient currently have a fever: No Is patient : No COWS - Scale Resting Pulse: 0= [place] 80 or Below Sweatin= Chills/Flushing Restless Observation: 1= Difficult to Sit Still Pupil Size: 1= Pupils >than Normal Bone or Joint Aches: 2= Severe Diffuse Aches Runny Nose/ Eye Tearin= Runny Nose/Eyes GI Upset > 30mins: 2= Nausea/Diarrhea Tremor Observation: 1= Tremor [place], Not Seen Yawning Observation: 1= 1-2x During Session Anxiety or Irritability: 1=Feels Anxious/Irritable Goose Flesh Skin: 3=Piloerection COWS Score: 15 CIWA Nausea/Vomitin Muscle Tremors: 3 Anxiety: 3 Agitation: 3 Paroxysmal Sweats: 4-Forehead w/Sweat Beads Orientation: 0-Oriented Tacttile Disturbances: 0-None Auditory Disturbances: 0-None Visual Disturbances: 0-None Headache: 2-Mild CIWA-Ar Total Score: 18
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
[2019-12-23 14:45] VITALS: BMI 24.7
[2019-12-23] MEDS ORDERED: chlordiazePOXIDE HCL 25 MG CAPSULE PO PRN (14:46)
[2019-12-23] MEDS ORDERED: MAGNESIUM CITRATE 300 ML BOTTLE PO PRN (14:46)
[2019-12-23] MEDS ORDERED: BISMUTH SUBSALICYLATE 524 MG/30 ML UD PO PRN (14:46)
[2019-12-23] MEDS ORDERED: MAGNESIUM HYDROX 2400MG/30ML ORAL SUSPENSION 30 ML CUP PO PRN (14:46)
[2019-12-23] MEDS ORDERED: METHOCARBAMOL 500 MG TABLET PO PRN (14:46)
[2019-12-23] MEDS ORDERED: MAG HYDROX/AL HYDROX/SIMETH 30 ML UNIT-DOSE CUP PO PRN (14:46)
[2019-12-23] MEDS ORDERED: ACETAMINOPHEN 325 MG TABLET (FP) PO PRN ×2 (14:46)
[2019-12-23] MEDS ORDERED: IBUPROFEN 400 MG TABLET (FP) PO PRN (14:46)
[2019-12-23] MEDS ORDERED: ONDANSETRON *ODT* 4 MG TABLET SL PRN (14:46)
[2019-12-23] MEDS ORDERED: cloNIDine HCL 0.1 MG TABLET PO PRN (14:46)
[2019-12-23] MEDS ORDERED: MENTHOL/PHENOL 1 EACH UD MM PRN (14:46)
[2019-12-23] MEDS ORDERED: NICOTINE POLACRILEX 2 MG GUM BUC PRN (14:46)
[2019-12-23] MEDS ORDERED: METHADONE HCL 10 MG TABLET (FOR DETOX USE ONLY) PO ONE (15:15)
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
[2019-12-23] MEDS: NICOTINE 14 MG/24 HOURS TOPICAL PATCH TD SCH (15:56)
[2019-12-23] MEDS: PRENATAL VITAMINS W/ FOLIC ACID TABLET (FP) PO SCH (15:57)
[2019-12-23] MEDS: chlordiazePOXIDE HCL 25 MG CAPSULE PO SCH ×2 (18:47→22:18)
[2019-12-23] MEDS: hydrOXYzine PAMOATE 25 MG CAPSULE (FP) PO SCH ×2 (18:47→23:20)
[2019-12-23] MEDS: THIAMINE HCL 100 MG TABLET (FP) PO SCH (22:18)
[2019-12-23] MEDS: MELATONIN 5 MG TABLETS PO SCH (22:21)
[2019-12-24] MEDS: chlordiazePOXIDE HCL 25 MG CAPSULE PO SCH ×4 (05:19→23:20)
[2019-12-24] MEDS: hydrOXYzine PAMOATE 25 MG CAPSULE (FP) PO SCH ×5 (06:04→23:21)
[2019-12-24] MEDS ORDERED: METHADONE HCL 5 MG TABLET (FOR DETOX USE ONLY) ONE (09:25)
[2019-12-24] MEDS ORDERED: METHADONE HCL 10 MG TABLET (FOR DETOX USE ONLY) ONE (09:26)
[2019-12-24] MEDS ORDERED: METHADONE (DETOX) 20 MG, METHADONE (DETOX) 5 MG PO ONE (10:00)
[2019-12-24] MEDS: PRENATAL VITAMINS W/ FOLIC ACID TABLET (FP) PO SCH (10:35)
[2019-12-24] MEDS: NICOTINE 14 MG/24 HOURS TOPICAL PATCH TD SCH (10:35)
[2019-12-24 10:42] LABS: HEMATOCRIT 40.1 % (35.4-49); HEMOGLOBIN 13.8 GM/dL (11.7-16.9); MCH 32.4 pg (25.7-33.7); MCHC 34.3 g/dl (32.0-35.9); MEAN CELL VOLUME 94.4 fl (80-96); MEAN PLT VOLUME 8.4 fl (7.5-11.1); PLATELET COUNT 175 K/MM3 (134-434); RBC 4.24 M/mm3 (4.00-5.60); RDW 13.7 % (11.9-15.9); WHITE BLOOD COUNT 5.4 K/mm3 (4.0-10.0)
[2019-12-24 10:58] LABS: ALBUMIN 3.5 g/dl (3.4-5.0); BILIRUBIN,TOTAL 0.4 mg/dL (0.2-1); BLOOD UREA NITROGEN 16.6 mg/dL (7-18); CALCIUM 8.9 mg/dL (8.5-10.1); CREATININE 0.9 mg/dL (0.55-1.3); TOT PROT 7.1 g/dl (6.4-8.2)
--- NOTE | 2019-12-24 14:06 | PN ---
[facility] CIWA - CIWA Score Nausea/Vomitin Muscle Tremors: 2 Anxiety: 2 Agitation: 2 Paroxysmal Sweats: 1-Minimal Palms Moist Orientation: 0-Oriented Tacttile Disturbances: 1-Very Mild Itch/Numbness Auditory Disturbances: 0-None Visual Disturbances: 0-None Headache: 1-Very Mild CIWA-Ar Total Score: 11 BHS COWS - Scale Resting Pulse: 0= [place] 80 or Below Sweatin= No chills or Flushing Restless Observation: 0= Sits Still Pupil Size: 1= Pupils >than Normal Bone or Joint Aches: 1= Mild Discomfort Runny Nose/ Eye Tearin= Nasal Congestion GI Upset > 30mins: 2= Nausea/Diarrhea Tremor Observation of Outstretched Hands: 1= Tremor [place], Not Seen Yawning Observation: 1= 1-2x During Session Anxiety or Irritability: 2=Irritable/Anxious Goose Flesh Skin: 0=Smooth Skin COWS Score: 9 S Progress Note (SOAP) Subjective: alert,irritable,anxious,interrupted sleep,pain in the body,aching pain Objective: 12/24/19 14:05 Vital Signs Temperature 97.8 F 12/24/19 12:55 Pulse Rate 63 12/24/19 12:55 Respiratory Rate 19 12/24/19 12:55 Blood Pressure 103/63 12/24/19 12:55 O2 Sat by Pulse Oximetry (%) 99 12/24/19 12:55 Assessment: 12/24/19 14:05 withdrawal symptom Plan: continue detox methadone and librium regimen
[2019-12-24] MEDS: THIAMINE HCL 100 MG TABLET (FP) PO SCH (23:21)
[2019-12-24] MEDS: MELATONIN 5 MG TABLETS PO SCH (23:21)
[2019-12-25] MEDS: hydrOXYzine PAMOATE 25 MG CAPSULE (FP) PO SCH ×5 (06:35→23:11)
[2019-12-25] MEDS: chlordiazePOXIDE HCL 25 MG CAPSULE PO SCH ×3 (06:35→18:55)
[2019-12-25] MEDS ORDERED: METHADONE HCL 10 MG TABLET (FOR DETOX USE ONLY) PO ONE (10:00)
[2019-12-25] MEDS: NICOTINE 14 MG/24 HOURS TOPICAL PATCH TD SCH (11:12)
[2019-12-25] MEDS: PRENATAL VITAMINS W/ FOLIC ACID TABLET (FP) PO SCH (11:12)
--- NOTE | 2019-12-25 17:07 | PN ---
S CIWA - CIWA Score Nausea/Vomitin-No Nausea/No Vomiting Muscle Tremors: 2 Anxiety: 3 Agitation: 2 Paroxysmal Sweats: No Perspiration Orientation: 0-Oriented Tacttile Disturbances: 1-Very Mild Itch/Numbness Auditory Disturbances: 0-None Visual Disturbances: 1-Very Mild Sensitivity Headache: 0-None Present CIWA-Ar Total Score: 9 BHS COWS - Scale Resting Pulse: 0= [place] 80 or Below Sweatin= Chills/Flushing Restless Observation: 1= Difficult to Sit Still Pupil Size: 0= Normal to Room Light Bone or Joint Aches: 2= Severe Diffuse Aches Runny Nose/ Eye Tearin= None GI Upset > 30mins: 0= None Tremor Observation of Outstretched Hands: 2= Slight Tremor Visible Yawning Observation: 1= 1-2x During Session Anxiety or Irritability: 2=Irritable/Anxious Goose Flesh Skin: 0=Smooth Skin COWS Score: 9 BHS Progress Note (SOAP) Subjective: Tremors, Sweating, Chills, Body Aches, Fatigue. Objective: Patient A & O X 3, Observed Ambulating on Detox Unit Unassisted. In No Acute Distress. 12/25/19 17:06 Vital Signs Temperature 97.8 F 12/25/19 12:33 Pulse Rate 70 12/25/19 12:33 Respiratory Rate 19 12/25/19 12:33 Blood Pressure 114/61 12/25/19 12:33 O2 Sat by Pulse Oximetry (%) 100 12/25/19 12:33 Laboratory Tests 12/23/19 12/24/19 12/24/19 15:20 08:10 08:10 WBC 5.4 RBC 4.24 Hgb 13.8 Hct 40.1 MCV 94.4 MCH 32.4 MCHC 34.3 RDW 13.7 Plt Count 175 D MPV 8.4 Sodium 139 Potassium 4.0 Chloride 105 Carbon Dioxide 30 Anion Gap 5 L BUN 16.6 Creatinine 0.9 Est GFR (CKD-EPI)AfAm 109.50 Est GFR (CKD-EPI)NonAf 94.48 Random Glucose 84 Calcium 8.9 Total Bilirubin 0.4 AST 18 ALT 22 Alkaline Phosphatase 83 Total Protein 7.1 Albumin 3.5 Syphilis Serology COVID-19 ([facility]) Not detected 12/24/19 08:10 WBC RBC Hgb Hct MCV MCH MCHC RDW Plt Count MPV Sodium Potassium Chloride Carbon Dioxide Anion Gap BUN Creatinine Est GFR (CKD-EPI)AfAm Est GFR (CKD-EPI)NonAf Random Glucose Calcium Total Bilirubin AST ALT Alkaline Phosphatase Total Protein Albumin Syphilis Serology Non-reactive COVID-19 ([facility]) Lab Results noted. Assessment: 12/25/19 17:06 WITHDRAWAL SYMPTOMS. Plan: Continue Detox.
[2019-12-25] MEDS: THIAMINE HCL 100 MG TABLET (FP) PO SCH (23:11)
[2019-12-26] MEDS ORDERED: chlordiazePOXIDE HCL 10 MG CAPSULE PO PRN
[2019-12-26] MEDS: chlordiazePOXIDE HCL 25 MG CAPSULE PO SCH (00:12)
[2019-12-26] MEDS: MELATONIN 5 MG TABLETS PO SCH ×2 (00:13→22:21)
[2019-12-26] MEDS: hydrOXYzine PAMOATE 25 MG CAPSULE (FP) PO SCH ×6 (07:02→22:22)
[2019-12-26] MEDS: chlordiazePOXIDE HCL 10 MG CAPSULE PO SCH ×5 (07:02→22:21)
[2019-12-26] MEDS ORDERED: METHADONE HCL 5 MG TABLET (FOR DETOX USE ONLY) ONE (09:17)
[2019-12-26] MEDS ORDERED: METHADONE HCL 10 MG TABLET (FOR DETOX USE ONLY) ONE (09:17)
[2019-12-26] MEDS ORDERED: METHADONE (DETOX) 10 MG, METHADONE (DETOX) 5 MG PO ONE (10:00)
[2019-12-26] MEDS: PRENATAL VITAMINS W/ FOLIC ACID TABLET (FP) PO SCH (11:06)
[2019-12-26] MEDS: NICOTINE 14 MG/24 HOURS TOPICAL PATCH TD SCH (11:06)
--- NOTE | 2019-12-26 17:30 | PN ---
S CIWA - CIWA Score Nausea/Vomitin-No Nausea/No Vomiting Muscle Tremors: 2 Anxiety: 2 Agitation: 1-Slight > Activity Paroxysmal Sweats: 2 Orientation: 0-Oriented Tacttile Disturbances: 0-None Auditory Disturbances: 0-None Visual Disturbances: 0-None Headache: 0-None Present CIWA-Ar Total Score: 7 BHS COWS - Scale Resting Pulse: 0= [place] 80 or Below Sweatin= Chills/Flushing Restless Observation: 0= Sits Still Pupil Size: 0= Normal to Room Light Bone or Joint Aches: 1= Mild Discomfort Runny Nose/ Eye Tearin= Nasal Congestion GI Upset > 30mins: 1= Stomach Cramp Tremor Observation of Outstretched Hands: 2= Slight Tremor Visible Yawning Observation: 0= None Anxiety or Irritability: 1=Feels Anxious/Irritable Goose Flesh Skin: 0=Smooth Skin COWS Score: 7 S Progress Note (SOAP) Subjective: Stomachache, feels like throwing up, back pain, pain in hands, interrupted sleep Objective: 12/26/19 17:27 Last Vital Signs Temp Pulse Resp BP Pulse Ox 98.2 F 71 18 122/63 100 12/26/19 12:55 12/26/19 12:55 12/26/19 12:55 12/26/19 12:55 12/26/19 12:55 Laboratory Tests 12/23/19 12/24/19 12/24/19 15:20 08:10 08:10 WBC 5.4 RBC 4.24 Hgb 13.8 Hct 40.1 MCV 94.4 MCH 32.4 MCHC 34.3 RDW 13.7 Plt Count 175 D MPV 8.4 Sodium 139 Potassium 4.0 Chloride 105 Carbon Dioxide 30 Anion Gap 5 L BUN 16.6 Creatinine 0.9 Est GFR (CKD-EPI)AfAm 109.50 Est GFR (CKD-EPI)NonAf 94.48 Random Glucose 84 Calcium 8.9 Total Bilirubin 0.4 AST 18 ALT 22 Alkaline Phosphatase 83 Total Protein 7.1 Albumin 3.5 Syphilis Serology COVID-19 ([facility]) Not detected 12/24/19 08:10 WBC RBC Hgb Hct MCV MCH MCHC RDW Plt Count MPV Sodium Potassium Chloride Carbon Dioxide Anion Gap BUN Creatinine Est GFR (CKD-EPI)AfAm Est GFR (CKD-EPI)NonAf Random Glucose Calcium Total Bilirubin AST ALT Alkaline Phosphatase Total Protein Albumin Syphilis Serology Non-reactive COVID-19 ([facility]) Labs reviewed Assessment: 12/26/19 17:30 Withdrawal sxs Plan: Continue detox Encourage PO water intake
[2019-12-26] MEDS: THIAMINE HCL 100 MG TABLET (FP) PO SCH (22:21)
[2019-12-27] MEDS: chlordiazePOXIDE HCL 10 MG CAPSULE PO SCH ×2 (07:13→17:21)
[2019-12-27] MEDS: hydrOXYzine PAMOATE 25 MG CAPSULE (FP) PO SCH ×2 (07:13→10:16)
[2019-12-27] MEDS ORDERED: METHADONE HCL 10 MG TABLET (FOR DETOX USE ONLY) PO ONE (10:00)
[2019-12-27] MEDS: PRENATAL VITAMINS W/ FOLIC ACID TABLET (FP) PO SCH (10:16)
[2019-12-27] MEDS: NICOTINE 14 MG/24 HOURS TOPICAL PATCH TD SCH (10:16)
--- NOTE | 2019-12-27 10:37 | PN ---
[facility] CIWA - CIWA Score Nausea/Vomitin-No Nausea/No Vomiting Muscle Tremors: 2 Anxiety: 2 Agitation: 1-Slight > Activity Paroxysmal Sweats: No Perspiration Orientation: 0-Oriented Tacttile Disturbances: 1-Very Mild Itch/Numbness Auditory Disturbances: 0-None Visual Disturbances: 0-None Headache: 1-Very Mild CIWA-Ar Total Score: 7 S COWS - Scale Resting Pulse: 1= [place] 81-100 Sweatin= No chills or Flushing Restless Observation: 0= Sits Still Pupil Size: 0= Normal to Room Light Bone or Joint Aches: 1= Mild Discomfort Runny Nose/ Eye Tearin= None GI Upset > 30mins: 1= Stomach Cramp Tremor Observation of Outstretched Hands: 1= Tremor [place], Not Seen Yawning Observation: 0= None Anxiety or Irritability: 2=Irritable/Anxious Goose Flesh Skin: 0=Smooth Skin COWS Score: 6 S Progress Note (SOAP) Subjective: alert,irritable,anxious,interrupted sleep,aching pain in the body Objective: 12/27/19 16:53 Vital Signs Temperature 97.8 F 12/27/19 12:43 Pulse Rate 84 12/27/19 12:43 Respiratory Rate 17 12/27/19 12:43 Blood Pressure 118/66 12/27/19 12:43 O2 Sat by Pulse Oximetry (%) 99 12/27/19 12:43 Assessment: 12/27/19 16:53 withdrawal symptom Plan: continue detox methadone and librium regimen,discharge in am
[2019-12-27] MEDS ORDERED: hydrOXYzine PAMOATE 25 MG CAPSULE (FP) PO PRN (11:02)
[2019-12-27] MEDS: MELATONIN 5 MG TABLETS PO SCH (23:00)
[2019-12-27] MEDS: THIAMINE HCL 100 MG TABLET (FP) PO SCH (23:01)
[2019-12-28] MEDS ORDERED: chlordiazePOXIDE HCL 10 MG CAPSULE PO ONE (05:00)
[2019-12-28] MEDS ORDERED: METHADONE HCL 5 MG TABLET (FOR DETOX USE ONLY) PO ONE (06:00)
[2019-12-28 06:10] VITALS: BP 130/69; PULSE 74; TEMP 97.8
--- NOTE | 2019-12-28 09:38 | DS ---
[facility] Detox Discharge Summary Admission Date: 12/23/19 Discharge Date: 12/28/19 - History Present History: Alcohol Dependence, Cocaine Dependence, Opioid Dependence Additional Comments: alert,oriented x 3 ambulation on the unit lung clear on auscultation bilaterally abdomen soft,no distension,no pain detox completed no withdrawal symptom stable for discharge total time spending on discharge 30 minuted follow up with after care program as arrangement methadone maintenance clinic for evaluation Pertinent Past History: nicotine dependence - Physical Exam Results Vital Signs: Vital Signs Temperature 97.8 F 12/28/19 06:09 Pulse Rate 74 12/28/19 06:09 Respiratory Rate 18 12/28/19 06:09 Blood Pressure 130/69 12/28/19 06:09 O2 Sat by Pulse Oximetry (%) 99 12/28/19 06:09 Pertinent Admission Physical Exam Findings: withdrawal signs and symptom Laboratory Last Values WBC 5.4 K/mm3 (4.0-10.0) 12/24/19 08:10 RBC 4.24 M/mm3 (4.00-5.60) 12/24/19 08:10 Hgb 13.8 GM/dL (11.7-16.9) 12/24/19 08:10 Hct 40.1 % (35.4-49) 12/24/19 08:10 MCV 94.4 fl (80-96) 12/24/19 08:10 MCH 32.4 pg (25.7-33.7) 12/24/19 08:10 MCHC 34.3 g/dl (32.0-35.9) 12/24/19 08:10 RDW 13.7 % (11.9-15.9) 12/24/19 08:10 Plt Count 175 K/MM3 (134-434) D 12/24/19 08:10 MPV 8.4 fl (7.5-11.1) 12/24/19 08:10 Sodium 139 mmol/L (136-145) 12/24/19 08:10 Potassium 4.0 mmol/L (3.5-5.1) 12/24/19 08:10 Chloride 105 mmol/L (98-107) 12/24/19 08:10 Carbon Dioxide 30 mmol/L (21-32) 12/24/19 08:10 Anion Gap 5 MMOL/L (8-16) L 12/24/19 08:10 BUN 16.6 mg/dL (7-18) 12/24/19 08:10 Creatinine 0.9 mg/dL (0.55-1.3) 12/24/19 08:10 Est GFR (CKD-EPI)AfAm 109.50 12/24/19 08:10 Est GFR (CKD-EPI)NonAf 94.48 12/24/19 08:10 Random Glucose 84 mg/dL (74-106) 12/24/19 08:10 Calcium 8.9 mg/dL (8.5-10.1) 12/24/19 08:10 Total Bilirubin 0.4 mg/dL (0.2-1) 12/24/19 08:10 AST 18 U/L (15-37) 12/24/19 08:10 ALT 22 U/L (13-61) 12/24/19 08:10 Alkaline Phosphatase 83 U/L (45-117) 12/24/19 08:10 Total Protein 7.1 g/dl (6.4-8.2) 12/24/19 08:10 Albumin 3.5 g/dl (3.4-5.0) 12/24/19 08:10 Syphilis Serology Non-reactive (NONREACTIVE) 12/24/19 08:10 COVID-19 ([facility]) Not detected (Not Detected) 12/23/19 15:20 Vital Signs Temperature 97.8 F 12/28/19 06:09 Pulse Rate 74 12/28/19 06:09 Respiratory Rate 18 12/28/19 06:09 Blood Pressure 130/69 12/28/19 06:09 O2 Sat by Pulse Oximetry (%) 99 12/28/19 06:09 - Treatment Hospital Course: Detox Protocol Followed, Detoxed Safely, Responded well, Discharged Condition Good Patient has Accepted a Rehab Referral to: declined - Medication Discharge Medications: Ambulatory Orders NK [No Known Home Medication] 01/27/19 - Diagnosis (1) Alcohol dependence Status: Acute (2) Cocaine dependence Status: Acute (3) Heroin dependence Status: Acute
--- NOTE | 2019-12-28 09:38 | PN ---
[facility] CIWA - CIWA Score Nausea/Vomitin-No Nausea/No Vomiting Muscle Tremors: None Anxiety: 1-Mildly Anxious Agitation: 0-Normal Activity Paroxysmal Sweats: No Perspiration Orientation: 0-Oriented Tacttile Disturbances: 0-None Auditory Disturbances: 0-None Visual Disturbances: 0-None Headache: 0-None Present CIWA-Ar Total Score: 1 [facility] COWS - Scale Resting Pulse: 0= [place] 80 or Below Sweatin= No chills or Flushing Restless Observation: 0= Sits Still Pupil Size: 0= Normal to Room Light Bone or Joint Aches: 0= None Runny Nose/ Eye Tearin= None GI Upset > 30mins: 0= None Tremor Observation of Outstretched Hands: 0= None Yawning Observation: 0= None Anxiety or Irritability: 1=Feels Anxious/Irritable Goose Flesh Skin: 0=Smooth Skin COWS Score: 1 [facility] Progress Note (SOAP) Subjective: alert,no complaint Objective: 12/28/19 14:53 Vital Signs Temperature 97.8 F 12/28/19 06:09 Pulse Rate 74 12/28/19 06:09 Respiratory Rate 18 12/28/19 06:09 Blood Pressure 130/69 12/28/19 06:09 O2 Sat by Pulse Oximetry (%) 99 12/28/19 06:09 Assessment: 12/28/19 14:53 detox completed,no withdrawal symptom Plan: stable for discharge today,follow up with after care program as arrangement
--- NOTE | 2019-12-28 15:05 | DS ---
[facility] Detox Discharge Summary Admission Date: 12/23/19 Discharge Date: 12/28/19 - History Present History: Alcohol Dependence, Cannabis Dependence, Opioid Dependence Additional Comments: alert,oriented x 3 ambulation on the unit lung clear on auscultation bilaterally abdomen soft,no pain detox completed no withdrawal symptom stable for discharge today follow up with after care program as arrangement,methadone maintenance clinic total time spending on discharge 30 minutes Pertinent Past History: withdrawal signs and symptom Laboratory Last Values WBC 5.4 K/mm3 (4.0-10.0) 12/24/19 08:10 RBC 4.24 M/mm3 (4.00-5.60) 12/24/19 08:10 Hgb 13.8 GM/dL (11.7-16.9) 12/24/19 08:10 Hct 40.1 % (35.4-49) 12/24/19 08:10 MCV 94.4 fl (80-96) 12/24/19 08:10 MCH 32.4 pg (25.7-33.7) 12/24/19 08:10 MCHC 34.3 g/dl (32.0-35.9) 12/24/19 08:10 RDW 13.7 % (11.9-15.9) 12/24/19 08:10 Plt Count 175 K/MM3 (134-434) D 12/24/19 08:10 MPV 8.4 fl (7.5-11.1) 12/24/19 08:10 Sodium 139 mmol/L (136-145) 12/24/19 08:10 Potassium 4.0 mmol/L (3.5-5.1) 12/24/19 08:10 Chloride 105 mmol/L (98-107) 12/24/19 08:10 Carbon Dioxide 30 mmol/L (21-32) 12/24/19 08:10 Anion Gap 5 MMOL/L (8-16) L 12/24/19 08:10 BUN 16.6 mg/dL (7-18) 12/24/19 08:10 Creatinine 0.9 mg/dL (0.55-1.3) 12/24/19 08:10 Est GFR (CKD-EPI)AfAm 109.50 12/24/19 08:10 Est GFR (CKD-EPI)NonAf 94.48 12/24/19 08:10 Random Glucose 84 mg/dL (74-106) 12/24/19 08:10 Calcium 8.9 mg/dL (8.5-10.1) 12/24/19 08:10 Total Bilirubin 0.4 mg/dL (0.2-1) 12/24/19 08:10 AST 18 U/L (15-37) 12/24/19 08:10 ALT 22 U/L (13-61) 12/24/19 08:10 Alkaline Phosphatase 83 U/L (45-117) 12/24/19 08:10 Total Protein 7.1 g/dl (6.4-8.2) 12/24/19 08:10 Albumin 3.5 g/dl (3.4-5.0) 12/24/19 08:10 Syphilis Serology Non-reactive (NONREACTIVE) 12/24/19 08:10 COVID-19 ([facility]AS) Not detected (Not Detected) 12/23/19 15:20 Vital Signs Temperature 97.8 F 12/28/19 06:09 Pulse Rate 74 12/28/19 06:09 Respiratory Rate 18 12/28/19 06:09 Blood Pressure 130/69 12/28/19 06:09 O2 Sat by Pulse Oximetry (%) 99 12/28/19 06:09 - Physical Exam Results Vital Signs: Vital Signs Temperature 97.8 F 12/28/19 06:09 Pulse Rate 74 12/28/19 06:09 Respiratory Rate 18 12/28/19 06:09 Blood Pressure 130/69 12/28/19 06:09 O2 Sat by Pulse Oximetry (%) 99 12/28/19 06:09 Pertinent Admission Physical Exam Findings: withdrawal signs and symptom Lab Results WBC 5.4 K/mm3 (4.0-10.0) 12/24/19 08:10 RBC 4.24 M/mm3 (4.00-5.60) 12/24/19 08:10 Hgb 13.8 GM/dL (11.7-16.9) 12/24/19 08:10 Hct 40.1 % (35.4-49) 12/24/19 08:10 MCV 94.4 fl (80-96) 12/24/19 08:10 MCHC 34.3 g/dl (32.0-35.9) 12/24/19 08:10 RDW 13.7 % (11.9-15.9) 12/24/19 08:10 Plt Count 175 K/MM3 (134-434) D 12/24/19 08:10 Sodium 139 mmol/L (136-145) 12/24/19 08:10 Potassium 4.0 mmol/L (3.5-5.1) 12/24/19 08:10 Chloride 105 mmol/L (98-107) 12/24/19 08:10 Carbon Dioxide 30 mmol/L (21-32) 12/24/19 08:10 Anion Gap 5 MMOL/L (8-16) L 12/24/19 08:10 BUN 16.6 mg/dL (7-18) 12/24/19 08:10 Creatinine 0.9 mg/dL (0.55-1.3) 12/24/19 08:10 Random Glucose 84 mg/dL (74-106) 12/24/19 08:10 Calcium 8.9 mg/dL (8.5-10.1) 12/24/19 08:10 Laboratory Last Values WBC 5.4 K/mm3 (4.0-10.0) 12/24/19 08:10 RBC 4.24 M/mm3 (4.00-5.60) 12/24/19 08:10 Hgb 13.8 GM/dL (11.7-16.9) 12/24/19 08:10 Hct 40.1 % (35.4-49) 12/24/19 08:10 MCV 94.4 fl (80-96) 12/24/19 08:10 MCH 32.4 pg (25.7-33.7) 12/24/19 08:10 MCHC 34.3 g/dl (32.0-35.9) 12/24/19 08:10 RDW 13.7 % (11.9-15.9) 12/24/19 08:10 Plt Count 175 K/MM3 (134-434) D 12/24/19 08:10 MPV 8.4 fl (7.5-11.1) 12/24/19 08:10 Sodium 139 mmol/L (136-145) 12/24/19 08:10 Potassium 4.0 mmol/L (3.5-5.1) 12/24/19 08:10 Chloride 105 mmol/L (98-107) 12/24/19 08:10 Carbon Dioxide 30 mmol/L (21-32) 12/24/19 08:10 Anion Gap 5 MMOL/L (8-16) L 12/24/19 08:10 BUN 16.6 mg/dL (7-18) 12/24/19 08:10 Creatinine 0.9 mg/dL (0.55-1.3) 12/24/19 08:10 Est GFR (CKD-EPI)AfAm 109.50 12/24/19 08:10 Est GFR (CKD-EPI)NonAf 94.48 12/24/19 08:10 Random Glucose 84 mg/dL (74-106) 12/24/19 08:10 Calcium 8.9 mg/dL (8.5-10.1) 12/24/19 08:10 Total Bilirubin 0.4 mg/dL (0.2-1) 12/24/19 08:10 AST 18 U/L (15-37) 12/24/19 08:10 ALT 22 U/L (13-61) 12/24/19 08:10 Alkaline Phosphatase 83 U/L (45-117) 12/24/19 08:10 Total Protein 7.1 g/dl (6.4-8.2) 12/24/19 08:10 Albumin 3.5 g/dl (3.4-5.0) 12/24/19 08:10 Syphilis Serology Non-reactive (NONREACTIVE) 12/24/19 08:10 COVID-19 ([facility]) Not detected (Not Detected) 12/23/19 15:20 - Treatment Hospital Course: Detox Protocol Followed, Detoxed Safely, Responded well, Discharged Condition Good, Rehab Referral Accepted Patient [facility] Accept[facility] - Medication Discharge Medications: Ambulatory Orders NK [No Known Home Medication] 01/27/19 - Diagnosis (1) Heroin dependence Status: Acute (2) Alcohol dependence Status: Acute (3) Cocaine dependence Status: Acute - AMA Did Patient Leave Against Medical Advice: No
== END 2019-12-28 09:00 | disposition home or self-care (01) | DRG 773 ==
LOC: YASAS 12:51 → Y6N 15:15
PROVIDERS: ADMIT Allergy & Immunology; ATTEND Allergy & Immunology
PROC: HZ2ZZZZ Detoxification Services for Substance Abuse Treatment (ICD-10-PCS; principal; 2019-12-23)
DX: F11.23 Opioid dependence with withdrawal (principal); F10.230 Alcohol dependence with withdrawal, uncomplicated; F14.20 Cocaine dependence, uncomplicated; F17.210 Nicotine dependence, cigarettes, uncomplicated; F43.10 Post-traumatic stress disorder, unspecified; F32.9 Major depressive disorder, single episode, unspecified; B18.2 Chronic viral hepatitis C; Z86.11 Personal history of tuberculosis; Z87.828 Personal history of other (healed) physical injury and trauma; Z88.8 Allergy status to other drugs, medicaments and biological substances
CPT/HCPCS: 36415; 71046-TC-FY; 80053; 85027; 86780; Q0162; U0003

== ENCOUNTER 2020-05-05 09:15 | Inpatient (IN) | payer OTHER ==
[2020-05-05 10:02] VITALS: BMI 25.9
[2020-05-05] MEDS ORDERED: MAGNESIUM CITRATE 300 ML BOTTLE PO PRN (10:30)
[2020-05-05] MEDS ORDERED: ONDANSETRON *ODT* 4 MG TABLET SL PRN (10:30)
[2020-05-05] MEDS ORDERED: NICOTINE POLACRILEX 2 MG GUM BUC PRN (10:30)
[2020-05-05] MEDS ORDERED: MAGNESIUM HYDROX 2400MG/30ML ORAL SUSPENSION 30 ML CUP PO PRN (10:30)
[2020-05-05] MEDS ORDERED: ACETAMINOPHEN 325 MG TABLET (FP) PO PRN ×2 (10:30)
[2020-05-05] MEDS ORDERED: BISMUTH SUBSALICYLATE 524 MG/30 ML UD PO PRN (10:30)
[2020-05-05] MEDS ORDERED: cloNIDine HCL 0.1 MG TABLET PO PRN (10:30)
[2020-05-05] MEDS ORDERED: MENTHOL/PHENOL 1 EACH UD MM PRN (10:30)
[2020-05-05] MEDS ORDERED: IBUPROFEN 400 MG TABLET (FP) PO PRN (10:30)
[2020-05-05] MEDS ORDERED: MAG HYDROX/AL HYDROX/SIMETH 30 ML UNIT-DOSE CUP PO PRN (10:30)
[2020-05-05] MEDS ORDERED: METHADONE HCL 10 MG TABLET (FOR DETOX USE ONLY) PO ONE (11:00)
[2020-05-05] MEDS: METHOCARBAMOL 500 MG TABLET PO PRN (11:49)
[2020-05-05] MEDS: PRENATAL VITAMINS W/ FOLIC ACID TABLET (FP) PO SCH (11:54)
[2020-05-05] MEDS: hydrOXYzine PAMOATE 25 MG CAPSULE (FP) PO SCH ×3 (14:33→23:56)
[2020-05-05 15:24] LABS: HEMATOCRIT 39.5 % (35.4-49); HEMOGLOBIN 13.2 GM/dL (11.7-16.9); MCH 31.7 pg (25.7-33.7); MCHC 33.5 g/dl (32.0-35.9); MEAN CELL VOLUME 94.8 fl (80-96); MEAN PLT VOLUME 7.7 fl (7.5-11.1); PLATELET COUNT 225 K/MM3 (134-434); RBC 4.17 M/mm3 (4.00-5.60); RDW 13.6 % (11.9-15.9); WHITE BLOOD COUNT 7.2 K/mm3 (4.0-10.0)
[2020-05-05 15:25] LABS: POTASSIUM 3.9 mmol/L (3.5-5.1)
[2020-05-05 15:32] LABS: ALBUMIN 3.5 g/dl (3.4-5.0); CALCIUM 8.9 mg/dL (8.5-10.1)
[2020-05-05 15:35] LABS: BILIRUBIN,TOTAL 0.2 mg/dL (0.2-1); TOT PROT 7.1 g/dl (6.4-8.2)
[2020-05-05] MEDS: MELATONIN 5 MG TABLETS PO SCH (23:56)
[2020-05-05] MEDS: THIAMINE HCL 100 MG TABLET (FP) PO SCH (23:56)
[2020-05-06] MEDS: hydrOXYzine PAMOATE 25 MG CAPSULE (FP) PO SCH ×5 (05:50→22:47)
[2020-05-06] MEDS ORDERED: METHADONE HCL 5 MG TABLET (FOR DETOX USE ONLY) ONE (09:14)
[2020-05-06] MEDS ORDERED: METHADONE HCL 10 MG TABLET (FOR DETOX USE ONLY) ONE (09:15)
[2020-05-06] MEDS ORDERED: METHADONE (DETOX) 20 MG, METHADONE (DETOX) 5 MG PO ONE (10:00)
[2020-05-06] MEDS: PRENATAL VITAMINS W/ FOLIC ACID TABLET (FP) PO SCH (10:08)
[2020-05-06] MEDS ORDERED: TRIMETHOBENZAMIDE HCL 200MG/2ML INJ IM PRN (13:29)
[2020-05-06] MEDS: THIAMINE HCL 100 MG TABLET (FP) PO SCH (22:47)
[2020-05-06] MEDS: MELATONIN 5 MG TABLETS PO SCH (22:47)
[2020-05-07] MEDS: hydrOXYzine PAMOATE 25 MG CAPSULE (FP) PO SCH ×5 (05:05→23:11)
[2020-05-07] MEDS ORDERED: METHADONE HCL 10 MG TABLET (FOR DETOX USE ONLY) PO ONE (10:00)
[2020-05-07] MEDS: PRENATAL VITAMINS W/ FOLIC ACID TABLET (FP) PO SCH (11:01)
[2020-05-07] MEDS ORDERED: FLU VACCINE (FLULAVAL) PF 60 MCG/0.5 ML SYRINGE 2020-2021 IM ONE (12:00)
[2020-05-07] MEDS: MELATONIN 5 MG TABLETS PO SCH (23:11)
[2020-05-07] MEDS: THIAMINE HCL 100 MG TABLET (FP) PO SCH (23:12)
[2020-05-08] MEDS: hydrOXYzine PAMOATE 25 MG CAPSULE (FP) PO SCH ×5 (07:47→23:12)
[2020-05-08] MEDS ORDERED: METHADONE HCL 5 MG TABLET (FOR DETOX USE ONLY) ONE (09:28)
[2020-05-08] MEDS ORDERED: METHADONE HCL 10 MG TABLET (FOR DETOX USE ONLY) ONE (09:29)
[2020-05-08] MEDS ORDERED: METHADONE (DETOX) 10 MG, METHADONE (DETOX) 5 MG PO ONE (10:00)
[2020-05-08] MEDS: PRENATAL VITAMINS W/ FOLIC ACID TABLET (FP) PO SCH (10:05)
[2020-05-08] MEDS: THIAMINE HCL 100 MG TABLET (FP) PO SCH (23:12)
[2020-05-08] MEDS: MELATONIN 5 MG TABLETS PO SCH (23:12)
[2020-05-09] MEDS: hydrOXYzine PAMOATE 25 MG CAPSULE (FP) PO SCH ×5 (06:13→22:20)
[2020-05-09] MEDS ORDERED: METHADONE HCL 10 MG TABLET (FOR DETOX USE ONLY) PO ONE (10:00)
[2020-05-09] MEDS ORDERED: MASKS NR ONE (10:03)
[2020-05-09] MEDS: PRENATAL VITAMINS W/ FOLIC ACID TABLET (FP) PO SCH (10:06)
[2020-05-09] MEDS: METHOCARBAMOL 500 MG TABLET PO PRN (22:19)
[2020-05-09] MEDS: MELATONIN 5 MG TABLETS PO SCH (22:19)
[2020-05-09] MEDS: cloNIDine HCL 0.1 MG TABLET PO PRN (22:19)
[2020-05-09] MEDS: THIAMINE HCL 100 MG TABLET (FP) PO SCH (22:20)
[2020-05-10] MEDS ORDERED: METHADONE HCL 5 MG TABLET (FOR DETOX USE ONLY) PO ONE (06:00)
[2020-05-10] MEDS: cloNIDine HCL 0.1 MG TABLET PO PRN (06:50)
[2020-05-10] MEDS: hydrOXYzine PAMOATE 25 MG CAPSULE (FP) PO SCH (06:51)
[2020-05-10 09:11] VITALS: BP 137/87; PULSE 80; TEMP 96.9
== END 2020-05-10 10:51 | disposition other institution (70) | DRG 773 ==
LOC: YASAS 09:15 → Y6N 10:09
PROVIDERS: ADMIT Allergy & Immunology; ATTEND Allergy & Immunology
PROC: HZ2ZZZZ Detoxification Services for Substance Abuse Treatment (ICD-10-PCS; principal; 2020-05-05)
DX: F11.23 Opioid dependence with withdrawal (principal); F10.20 Alcohol dependence, uncomplicated; F14.20 Cocaine dependence, uncomplicated; F17.210 Nicotine dependence, cigarettes, uncomplicated; F19.282 Other psychoactive substance dependence with psychoactive substance-induced sleep disorder; F19.24 Other psychoactive substance dependence with psychoactive substance-induced mood disorder; F43.10 Post-traumatic stress disorder, unspecified; F32.9 Major depressive disorder, single episode, unspecified; I10 Essential (primary) hypertension; R74.8 Abnormal levels of other serum enzymes; R76.11 Nonspecific reaction to tuberculin skin test without active tuberculosis; Z87.828 Personal history of other (healed) physical injury and trauma; Z98.890 Other specified postprocedural states; Z88.8 Allergy status to other drugs, medicaments and biological substances; Z91.09 Other allergy status, other than to drugs and biological substances; Y04.0XXA Assault by unarmed brawl or fight, initial encounter; Y93.89 Activity, other specified; Y92.238 Other place in hospital as the place of occurrence of the external cause; Y99.8 Other external cause status
CPT/HCPCS: 36415; 80053; 82962; 85027; 86780; C9803; J0735; U0003

== ENCOUNTER 2020-05-10 10:58 | Inpatient (IN) | payer OTHER ==
[2020-05-10] MEDS ORDERED: NICOTINE POLACRILEX 2 MG GUM BUC PRN (11:36)
[2020-05-10] MEDS ORDERED: guaiFENesin 200 MG/10 ML 10 ML UNIT-DOSE CUPS PO PRN (11:36)
[2020-05-10] MEDS ORDERED: LOPERAMIDE HCL 2 MG CAPSULE PO PRN (11:36)
[2020-05-10] MEDS ORDERED: MAGNESIUM HYDROX 2400MG/30ML ORAL SUSPENSION 30 ML CUP PO PRN (11:36)
[2020-05-10] MEDS ORDERED: MAGNESIUM CITRATE 300 ML BOTTLE PO PRN (11:36)
[2020-05-10] MEDS ORDERED: IBUPROFEN 400 MG TABLET (FP) PO PRN (11:36)
[2020-05-10] MEDS ORDERED: P-EPHED 60MG/TRIPROLIDI 2.5MG TABLET PO PRN (11:36)
[2020-05-10] MEDS ORDERED: MENTHOL/PHENOL 1 EACH UD MM PRN (11:36)
[2020-05-10] MEDS ORDERED: ACETAMINOPHEN 325 MG TABLET (FP) PO PRN (11:36)
[2020-05-10] MEDS ORDERED: MAG HYDROX/AL HYDROX/SIMETH 30 ML UNIT-DOSE CUP PO PRN (11:36)
[2020-05-10] MEDS: hydrOXYzine PAMOATE 25 MG CAPSULE (FP) PO PRN (14:12)
[2020-05-10] MEDS: METHOCARBAMOL 500 MG TABLET PO SCH ×3 (14:12→21:14)
[2020-05-10 17:50] LABS: URINE APPEARANCE CLEAR; URINE BILIRUBIN NEGATIVE (NEGATIVE); URINE COLOR YELLOW; URINE GLUCOSE (UA) NEGATIVE (NEGATIVE); URINE KETONE NEGATIVE (NEGATIVE); URINE LEUK ESTERASE NEGATIVE (NEGATIVE); URINE NITRITE NEGATIVE (NEGATIVE); URINE PROTEIN NEGATIVE (NEGATIVE)
[2020-05-10] MEDS: THIAMINE HCL 100 MG TABLET (FP) PO SCH (21:14)
[2020-05-10] MEDS: MELATONIN 5 MG TABLETS PO SCH (21:14)
[2020-05-11] MEDS: PRENATAL VITAMINS W/ FOLIC ACID TABLET (FP) PO SCH (10:32)
[2020-05-11] MEDS: METHOCARBAMOL 500 MG TABLET PO SCH ×4 (10:32→22:00)
[2020-05-11] MEDS: NICOTINE 7 MG/24 HOURS TOPICAL PATCH TD SCH (10:33)
[2020-05-11] MEDS: THIAMINE HCL 100 MG TABLET (FP) PO SCH (22:00)
[2020-05-11] MEDS: MELATONIN 5 MG TABLETS PO SCH (23:00)
[2020-05-12] MEDS: METHOCARBAMOL 500 MG TABLET PO SCH ×4 (10:21→23:00)
[2020-05-12] MEDS: PRENATAL VITAMINS W/ FOLIC ACID TABLET (FP) PO SCH (10:21)
[2020-05-12] MEDS: NICOTINE 7 MG/24 HOURS TOPICAL PATCH TD SCH (10:22)
[2020-05-12] MEDS ORDERED: MASKS NR ONE (19:48)
[2020-05-12] MEDS: THIAMINE HCL 100 MG TABLET (FP) PO SCH (23:00)
[2020-05-12] MEDS: MELATONIN 5 MG TABLETS PO SCH (23:01)
[2020-05-13] MEDS: NICOTINE 7 MG/24 HOURS TOPICAL PATCH TD SCH (10:17)
[2020-05-13] MEDS: METHOCARBAMOL 500 MG TABLET PO SCH ×4 (10:17→23:31)
[2020-05-13] MEDS: PRENATAL VITAMINS W/ FOLIC ACID TABLET (FP) PO SCH (10:17)
[2020-05-13] MEDS: MELATONIN 5 MG TABLETS PO SCH (23:30)
[2020-05-13] MEDS: THIAMINE HCL 100 MG TABLET (FP) PO SCH (23:31)
[2020-05-14] MEDS: NICOTINE 7 MG/24 HOURS TOPICAL PATCH TD SCH (10:35)
[2020-05-14] MEDS: METHOCARBAMOL 500 MG TABLET PO SCH ×4 (10:35→22:32)
[2020-05-14] MEDS: PRENATAL VITAMINS W/ FOLIC ACID TABLET (FP) PO SCH (10:35)
[2020-05-14] MEDS: MELATONIN 5 MG TABLETS PO SCH (22:32)
[2020-05-14] MEDS: THIAMINE HCL 100 MG TABLET (FP) PO SCH (22:32)
[2020-05-15] MEDS: PRENATAL VITAMINS W/ FOLIC ACID TABLET (FP) PO SCH (10:31)
[2020-05-15] MEDS: METHOCARBAMOL 500 MG TABLET PO SCH ×4 (10:31→22:50)
[2020-05-15] MEDS: NICOTINE 7 MG/24 HOURS TOPICAL PATCH TD SCH (10:31)
[2020-05-15] MEDS: LIDOCAINE 5% TOPICAL PATCH TP SCH (12:08)
[2020-05-15] MEDS: THIAMINE HCL 100 MG TABLET (FP) PO SCH (22:50)
[2020-05-15] MEDS: MELATONIN 5 MG TABLETS PO SCH (22:50)
[2020-05-15] MEDS: LIDOCAINE PATCH REMOVAL MC SCH (22:50)
[2020-05-16] MEDS: LIDOCAINE 5% TOPICAL PATCH TP SCH (10:48)
[2020-05-16] MEDS: PRENATAL VITAMINS W/ FOLIC ACID TABLET (FP) PO SCH (10:48)
[2020-05-16] MEDS: NICOTINE 7 MG/24 HOURS TOPICAL PATCH TD SCH (10:48)
[2020-05-16] MEDS: METHOCARBAMOL 500 MG TABLET PO SCH ×4 (10:48→22:36)
[2020-05-16] MEDS: LIDOCAINE PATCH REMOVAL MC SCH (22:36)
[2020-05-16] MEDS: MELATONIN 5 MG TABLETS PO SCH (22:36)
[2020-05-16] MEDS: THIAMINE HCL 100 MG TABLET (FP) PO SCH (22:36)
[2020-05-17] MEDS: LIDOCAINE 5% TOPICAL PATCH TP SCH (10:40)
[2020-05-17] MEDS: PRENATAL VITAMINS W/ FOLIC ACID TABLET (FP) PO SCH (10:40)
[2020-05-17] MEDS: NICOTINE 7 MG/24 HOURS TOPICAL PATCH TD SCH (10:41)
[2020-05-17] MEDS: METHOCARBAMOL 500 MG TABLET PO SCH ×4 (10:41→22:44)
[2020-05-17] MEDS: LIDOCAINE PATCH REMOVAL MC SCH (22:44)
[2020-05-17] MEDS: MELATONIN 5 MG TABLETS PO SCH (22:44)
[2020-05-17] MEDS: THIAMINE HCL 100 MG TABLET (FP) PO SCH (22:44)
[2020-05-18] MEDS: METHOCARBAMOL 500 MG TABLET PO SCH ×4 (10:50→22:32)
[2020-05-18] MEDS: PRENATAL VITAMINS W/ FOLIC ACID TABLET (FP) PO SCH (10:53)
[2020-05-18] MEDS: LIDOCAINE 5% TOPICAL PATCH TP SCH (10:53)
[2020-05-18] MEDS: NICOTINE 7 MG/24 HOURS TOPICAL PATCH TD SCH (10:54)
[2020-05-18] MEDS ORDERED: FLU VACCINE (FLULAVAL) PF 60 MCG/0.5 ML SYRINGE 2020-2021 IM ONE (13:50)
[2020-05-18] MEDS: THIAMINE HCL 100 MG TABLET (FP) PO SCH (22:32)
[2020-05-18] MEDS: MELATONIN 5 MG TABLETS PO SCH (22:32)
[2020-05-18] MEDS: LIDOCAINE PATCH REMOVAL MC SCH (22:34)
[2020-05-19] MEDS: LIDOCAINE 5% TOPICAL PATCH TP SCH (10:38)
[2020-05-19] MEDS: hydrOXYzine PAMOATE 25 MG CAPSULE (FP) PO PRN (10:38)
[2020-05-19] MEDS: METHOCARBAMOL 500 MG TABLET PO SCH ×4 (10:39→22:45)
[2020-05-19] MEDS: NICOTINE 7 MG/24 HOURS TOPICAL PATCH TD SCH (10:39)
[2020-05-19] MEDS: PRENATAL VITAMINS W/ FOLIC ACID TABLET (FP) PO SCH (10:39)
[2020-05-19] MEDS: THIAMINE HCL 100 MG TABLET (FP) PO SCH (22:45)
[2020-05-19] MEDS: MELATONIN 5 MG TABLETS PO SCH (22:45)
[2020-05-19] MEDS: LIDOCAINE PATCH REMOVAL MC SCH (22:45)
[2020-05-20] MEDS: LIDOCAINE 5% TOPICAL PATCH TP SCH (10:54)
[2020-05-20] MEDS: NICOTINE 7 MG/24 HOURS TOPICAL PATCH TD SCH (10:55)
[2020-05-20] MEDS: METHOCARBAMOL 500 MG TABLET PO SCH ×4 (10:55→22:39)
[2020-05-20] MEDS: PRENATAL VITAMINS W/ FOLIC ACID TABLET (FP) PO SCH (10:55)
[2020-05-20] MEDS: MELATONIN 5 MG TABLETS PO SCH (22:39)
[2020-05-20] MEDS: LIDOCAINE PATCH REMOVAL MC SCH (22:39)
[2020-05-20] MEDS: THIAMINE HCL 100 MG TABLET (FP) PO SCH (22:39)
[2020-05-21] MEDS: LIDOCAINE 5% TOPICAL PATCH TP SCH (10:37)
[2020-05-21] MEDS: PRENATAL VITAMINS W/ FOLIC ACID TABLET (FP) PO SCH (10:37)
[2020-05-21] MEDS: METHOCARBAMOL 500 MG TABLET PO SCH ×4 (10:37→22:23)
[2020-05-21] MEDS: NICOTINE 7 MG/24 HOURS TOPICAL PATCH TD SCH (10:37)
[2020-05-21] MEDS: THIAMINE HCL 100 MG TABLET (FP) PO SCH (22:22)
[2020-05-21] MEDS: LIDOCAINE PATCH REMOVAL MC SCH (22:23)
[2020-05-21] MEDS: MELATONIN 5 MG TABLETS PO SCH (22:23)
[2020-05-22] MEDS: PRENATAL VITAMINS W/ FOLIC ACID TABLET (FP) PO SCH (10:44)
[2020-05-22] MEDS: NICOTINE 7 MG/24 HOURS TOPICAL PATCH TD SCH (10:45)
[2020-05-22] MEDS: LIDOCAINE 5% TOPICAL PATCH TP SCH (10:45)
[2020-05-22] MEDS: METHOCARBAMOL 500 MG TABLET PO SCH ×4 (10:56→22:40)
[2020-05-22] MEDS: MELATONIN 5 MG TABLETS PO SCH (22:40)
[2020-05-22] MEDS: THIAMINE HCL 100 MG TABLET (FP) PO SCH (22:40)
[2020-05-22] MEDS: LIDOCAINE PATCH REMOVAL MC SCH (23:12)
[2020-05-23] MEDS: PRENATAL VITAMINS W/ FOLIC ACID TABLET (FP) PO SCH (10:25)
[2020-05-23] MEDS: LIDOCAINE 5% TOPICAL PATCH TP SCH (10:25)
[2020-05-23] MEDS: METHOCARBAMOL 500 MG TABLET PO SCH ×4 (10:25→22:36)
[2020-05-23] MEDS: NICOTINE 7 MG/24 HOURS TOPICAL PATCH TD SCH (10:25)
[2020-05-23] MEDS: THIAMINE HCL 100 MG TABLET (FP) PO SCH (22:35)
[2020-05-23] MEDS: MELATONIN 5 MG TABLETS PO SCH (22:36)
[2020-05-23] MEDS: LIDOCAINE PATCH REMOVAL MC SCH (22:37)
[2020-05-24] MEDS: PRENATAL VITAMINS W/ FOLIC ACID TABLET (FP) PO SCH (10:31)
[2020-05-24] MEDS: LIDOCAINE 5% TOPICAL PATCH TP SCH (10:31)
[2020-05-24] MEDS: METHOCARBAMOL 500 MG TABLET PO SCH ×4 (10:32→22:44)
[2020-05-24] MEDS: NICOTINE 7 MG/24 HOURS TOPICAL PATCH TD SCH (10:33)
[2020-05-24] MEDS: MELATONIN 5 MG TABLETS PO SCH (22:43)
[2020-05-24] MEDS: THIAMINE HCL 100 MG TABLET (FP) PO SCH (22:43)
[2020-05-24] MEDS: LIDOCAINE PATCH REMOVAL MC SCH (22:44)
[2020-05-24] MEDS: TOLNAFTATE 1% CREAM 15 GM TUBE TP SCH (22:44)
[2020-05-25] MEDS: PRENATAL VITAMINS W/ FOLIC ACID TABLET (FP) PO SCH (10:32)
[2020-05-25] MEDS: LIDOCAINE 5% TOPICAL PATCH TP SCH (10:32)
[2020-05-25] MEDS: NICOTINE 7 MG/24 HOURS TOPICAL PATCH TD SCH (10:32)
[2020-05-25] MEDS: TOLNAFTATE 1% CREAM 15 GM TUBE TP SCH ×2 (10:32→22:56)
[2020-05-25] MEDS: METHOCARBAMOL 500 MG TABLET PO SCH ×4 (10:32→22:55)
[2020-05-25] MEDS: MELATONIN 5 MG TABLETS PO SCH (22:54)
[2020-05-25] MEDS: THIAMINE HCL 100 MG TABLET (FP) PO SCH (22:55)
[2020-05-25] MEDS: LIDOCAINE PATCH REMOVAL MC SCH (22:56)
[2020-05-26] MEDS: PRENATAL VITAMINS W/ FOLIC ACID TABLET (FP) PO SCH (11:31)
[2020-05-26] MEDS: NICOTINE 7 MG/24 HOURS TOPICAL PATCH TD SCH (11:31)
[2020-05-26] MEDS: LIDOCAINE 5% TOPICAL PATCH TP SCH (11:31)
[2020-05-26] MEDS: METHOCARBAMOL 500 MG TABLET PO SCH ×4 (11:32→22:57)
[2020-05-26] MEDS: TOLNAFTATE 1% CREAM 15 GM TUBE TP SCH ×2 (11:32→22:53)
[2020-05-26] MEDS: LIDOCAINE PATCH REMOVAL MC SCH (22:53)
[2020-05-26] MEDS: THIAMINE HCL 100 MG TABLET (FP) PO SCH (22:55)
[2020-05-26] MEDS: MELATONIN 5 MG TABLETS PO SCH (22:56)
[2020-05-27] MEDS: PRENATAL VITAMINS W/ FOLIC ACID TABLET (FP) PO SCH (10:47)
[2020-05-27] MEDS: LIDOCAINE 5% TOPICAL PATCH TP SCH (10:48)
[2020-05-27] MEDS: TOLNAFTATE 1% CREAM 15 GM TUBE TP SCH ×2 (10:49→22:52)
[2020-05-27] MEDS: NICOTINE 7 MG/24 HOURS TOPICAL PATCH TD SCH (10:49)
[2020-05-27] MEDS: METHOCARBAMOL 500 MG TABLET PO SCH ×4 (10:49→22:52)
[2020-05-27] MEDS: MELATONIN 5 MG TABLETS PO SCH (22:51)
[2020-05-27] MEDS: THIAMINE HCL 100 MG TABLET (FP) PO SCH (22:51)
[2020-05-27] MEDS: LIDOCAINE PATCH REMOVAL MC SCH (22:52)
[2020-05-28] MEDS: PRENATAL VITAMINS W/ FOLIC ACID TABLET (FP) PO SCH (10:46)
[2020-05-28] MEDS: hydrOXYzine PAMOATE 25 MG CAPSULE (FP) PO PRN ×2 (10:46→23:09)
[2020-05-28] MEDS: METHOCARBAMOL 500 MG TABLET PO SCH ×4 (10:47→23:09)
[2020-05-28] MEDS: NICOTINE 7 MG/24 HOURS TOPICAL PATCH TD SCH (10:47)
[2020-05-28] MEDS: LIDOCAINE 5% TOPICAL PATCH TP SCH (10:47)
[2020-05-28] MEDS: TOLNAFTATE 1% CREAM 15 GM TUBE TP SCH ×2 (10:47→23:09)
[2020-05-28] MEDS: THIAMINE HCL 100 MG TABLET (FP) PO SCH (23:08)
[2020-05-28] MEDS: MELATONIN 5 MG TABLETS PO SCH (23:09)
[2020-05-28] MEDS: LIDOCAINE PATCH REMOVAL MC SCH (23:09)
[2020-05-29] MEDS: LIDOCAINE 5% TOPICAL PATCH TP SCH (10:27)
[2020-05-29] MEDS: hydrOXYzine PAMOATE 25 MG CAPSULE (FP) PO PRN (10:27)
[2020-05-29] MEDS: PRENATAL VITAMINS W/ FOLIC ACID TABLET (FP) PO SCH (10:27)
[2020-05-29] MEDS: NICOTINE 7 MG/24 HOURS TOPICAL PATCH TD SCH (10:27)
[2020-05-29] MEDS: TOLNAFTATE 1% CREAM 15 GM TUBE TP SCH ×2 (10:28→23:06)
[2020-05-29] MEDS: METHOCARBAMOL 500 MG TABLET PO SCH ×4 (10:28→23:07)
[2020-05-29] MEDS: MELATONIN 5 MG TABLETS PO SCH (23:05)
[2020-05-29] MEDS: THIAMINE HCL 100 MG TABLET (FP) PO SCH (23:05)
[2020-05-29] MEDS: LIDOCAINE PATCH REMOVAL MC SCH (23:06)
[2020-05-30] MEDS: LIDOCAINE 5% TOPICAL PATCH TP SCH (10:40)
[2020-05-30] MEDS: PRENATAL VITAMINS W/ FOLIC ACID TABLET (FP) PO SCH (10:40)
[2020-05-30] MEDS: METHOCARBAMOL 500 MG TABLET PO SCH ×4 (10:41→22:19)
[2020-05-30] MEDS: TOLNAFTATE 1% CREAM 15 GM TUBE TP SCH ×2 (10:41→22:19)
[2020-05-30] MEDS: NICOTINE 7 MG/24 HOURS TOPICAL PATCH TD SCH (10:41)
[2020-05-30] MEDS: MELATONIN 5 MG TABLETS PO SCH (22:19)
[2020-05-30] MEDS: THIAMINE HCL 100 MG TABLET (FP) PO SCH (22:19)
[2020-05-30] MEDS: LIDOCAINE PATCH REMOVAL MC SCH (22:19)
[2020-05-31] MEDS: METHOCARBAMOL 500 MG TABLET PO SCH ×4 (09:48→23:05)
[2020-05-31] MEDS: PRENATAL VITAMINS W/ FOLIC ACID TABLET (FP) PO SCH (09:48)
[2020-05-31] MEDS: TOLNAFTATE 1% CREAM 15 GM TUBE TP SCH ×2 (09:49→23:05)
[2020-05-31] MEDS: LIDOCAINE 5% TOPICAL PATCH TP SCH (09:49)
[2020-05-31] MEDS: NICOTINE 7 MG/24 HOURS TOPICAL PATCH TD SCH (09:49)
[2020-05-31] MEDS: THIAMINE HCL 100 MG TABLET (FP) PO SCH (23:04)
[2020-05-31] MEDS: MELATONIN 5 MG TABLETS PO SCH (23:04)
[2020-05-31] MEDS: LIDOCAINE PATCH REMOVAL MC SCH (23:06)
[2020-06-01] MEDS: LIDOCAINE 5% TOPICAL PATCH TP SCH (10:26)
[2020-06-01] MEDS: PRENATAL VITAMINS W/ FOLIC ACID TABLET (FP) PO SCH (10:26)
[2020-06-01] MEDS: TOLNAFTATE 1% CREAM 15 GM TUBE TP SCH ×2 (10:27→22:37)
[2020-06-01] MEDS: METHOCARBAMOL 500 MG TABLET PO SCH ×4 (10:27→22:21)
[2020-06-01] MEDS: NICOTINE 7 MG/24 HOURS TOPICAL PATCH TD SCH (10:27)
[2020-06-01] MEDS: THIAMINE HCL 100 MG TABLET (FP) PO SCH (22:20)
[2020-06-01] MEDS: MELATONIN 5 MG TABLETS PO SCH (22:21)
[2020-06-01] MEDS: LIDOCAINE PATCH REMOVAL MC SCH (22:21)
[2020-06-02] MEDS: LIDOCAINE 5% TOPICAL PATCH TP SCH (10:15)
[2020-06-02] MEDS: NICOTINE 7 MG/24 HOURS TOPICAL PATCH TD SCH (10:15)
[2020-06-02] MEDS: METHOCARBAMOL 500 MG TABLET PO SCH ×4 (10:15→23:09)
[2020-06-02] MEDS: PRENATAL VITAMINS W/ FOLIC ACID TABLET (FP) PO SCH (10:15)
[2020-06-02] MEDS: TOLNAFTATE 1% CREAM 15 GM TUBE TP SCH ×2 (10:15→23:09)
[2020-06-02] MEDS: MELATONIN 5 MG TABLETS PO SCH (23:07)
[2020-06-02] MEDS: THIAMINE HCL 100 MG TABLET (FP) PO SCH (23:07)
[2020-06-02] MEDS: LIDOCAINE PATCH REMOVAL MC SCH (23:08)
[2020-06-02] MEDS: PRAZOSIN HCL 1 MG CAPSULE PO SCH (23:08)
[2020-06-03] MEDS: LIDOCAINE 5% TOPICAL PATCH TP SCH (09:57)
[2020-06-03] MEDS: METHOCARBAMOL 500 MG TABLET PO SCH ×4 (09:57→23:01)
[2020-06-03] MEDS: TOLNAFTATE 1% CREAM 15 GM TUBE TP SCH ×2 (09:58→23:02)
[2020-06-03] MEDS: SERTRALINE HCL 50 MG TABLET (FP) PO SCH (09:58)
[2020-06-03] MEDS: NICOTINE 7 MG/24 HOURS TOPICAL PATCH TD SCH (09:58)
[2020-06-03] MEDS: PRENATAL VITAMINS W/ FOLIC ACID TABLET (FP) PO SCH (09:58)
[2020-06-03] MEDS: MELATONIN 5 MG TABLETS PO SCH (23:01)
[2020-06-03] MEDS: PRAZOSIN HCL 1 MG CAPSULE PO SCH (23:01)
[2020-06-03] MEDS: LIDOCAINE PATCH REMOVAL MC SCH (23:02)
[2020-06-03] MEDS: THIAMINE HCL 100 MG TABLET (FP) PO SCH (23:02)
[2020-06-04] MEDS: METHOCARBAMOL 500 MG TABLET PO SCH ×4 (10:07→22:53)
[2020-06-04] MEDS: SERTRALINE HCL 50 MG TABLET (FP) PO SCH (10:07)
[2020-06-04] MEDS: NICOTINE 7 MG/24 HOURS TOPICAL PATCH TD SCH (10:07)
[2020-06-04] MEDS: LIDOCAINE 5% TOPICAL PATCH TP SCH (10:08)
[2020-06-04] MEDS: PRENATAL VITAMINS W/ FOLIC ACID TABLET (FP) PO SCH (10:08)
[2020-06-04] MEDS: TOLNAFTATE 1% CREAM 15 GM TUBE TP SCH ×2 (10:09→22:53)
[2020-06-04] MEDS: MELATONIN 5 MG TABLETS PO SCH (22:52)
[2020-06-04] MEDS: THIAMINE HCL 100 MG TABLET (FP) PO SCH (22:52)
[2020-06-04] MEDS: LIDOCAINE PATCH REMOVAL MC SCH (22:53)
[2020-06-04] MEDS: PRAZOSIN HCL 1 MG CAPSULE PO SCH (22:53)
[2020-06-05] MEDS: PRENATAL VITAMINS W/ FOLIC ACID TABLET (FP) PO SCH (10:14)
[2020-06-05] MEDS: NICOTINE 7 MG/24 HOURS TOPICAL PATCH TD SCH (10:15)
[2020-06-05] MEDS: LIDOCAINE 5% TOPICAL PATCH TP SCH (10:15)
[2020-06-05] MEDS: METHOCARBAMOL 500 MG TABLET PO SCH ×4 (10:15→22:22)
[2020-06-05] MEDS: SERTRALINE HCL 50 MG TABLET (FP) PO SCH (10:16)
[2020-06-05] MEDS: TOLNAFTATE 1% CREAM 15 GM TUBE TP SCH ×2 (10:16→22:22)
[2020-06-05] MEDS: MELATONIN 5 MG TABLETS PO SCH (22:20)
[2020-06-05] MEDS: THIAMINE HCL 100 MG TABLET (FP) PO SCH (22:20)
[2020-06-05] MEDS: PRAZOSIN HCL 1 MG CAPSULE PO SCH (22:21)
[2020-06-05] MEDS: LIDOCAINE PATCH REMOVAL MC SCH (22:21)
[2020-06-06 07:06] VITALS: BP 111/84; PULSE 105; TEMP 97.9
[2020-06-06] MEDS: METHOCARBAMOL 500 MG TABLET PO SCH (09:13)
[2020-06-06] MEDS: TOLNAFTATE 1% CREAM 15 GM TUBE TP SCH (09:13)
[2020-06-06] MEDS: NICOTINE 7 MG/24 HOURS TOPICAL PATCH TD SCH (09:13)
[2020-06-06] MEDS: PRENATAL VITAMINS W/ FOLIC ACID TABLET (FP) PO SCH (09:13)
[2020-06-06] MEDS: LIDOCAINE 5% TOPICAL PATCH TP SCH (09:13)
[2020-06-06] MEDS: SERTRALINE HCL 50 MG TABLET (FP) PO SCH (09:14)
== END 2020-06-06 09:40 | disposition home or self-care (01) | DRG 772 ==
LOC: YASAS 10:58 → Y3W 10:59
PROVIDERS: ADMIT Allergy & Immunology; ATTEND Allergy & Immunology
PROC: HZ42ZZZ Group Counseling for Substance Abuse Treatment, Cognitive-Behavioral (ICD-10-PCS; principal; 2020-05-10)
DX: F11.20 Opioid dependence, uncomplicated (principal); F10.20 Alcohol dependence, uncomplicated; F14.20 Cocaine dependence, uncomplicated; F12.20 Cannabis dependence, uncomplicated; F17.210 Nicotine dependence, cigarettes, uncomplicated; F41.9 Anxiety disorder, unspecified; F32.9 Major depressive disorder, single episode, unspecified; F43.10 Post-traumatic stress disorder, unspecified; Z56.0 Unemployment, unspecified; Z59.0 Homelessness; Z88.8 Allergy status to other drugs, medicaments and biological substances; Z91.048 Other nonmedicinal substance allergy status
CPT/HCPCS: 81003; 82962; C9803; G0008; Q2036; U0003